=== PATIENT | female | born 1970 | race Caucasian/White ===

== ENCOUNTER → 2016-09-13 | Outpatient (CLI) | payer OTHER ==
--- NOTE | 2016-09-14 10:26 | MR ---
EXAMINATION TYPE: MR cervical spine wo con DATE OF EXAM: 09/13/2016 COMPARISON: Prior exam 04/12/2015 HISTORY: Neck pain, headaches, BUE weakness, no trauma/surgery TECHNIQUE: Multiplanar, multisequence images of the cervical spine were acquired. The exam is similar to prior exam. Mild underlying spinal curvature is noted. C2-C3: No evidence for degenerative disc disease. No disc bulge/herniation or protrusion. No Canal stenosis. Foramina are patent bilaterally. C3-C4: No evidence for degenerative disc disease. No disc bulge/herniation or protrusion. No Canal stenosis. Foramina are patent bilaterally. C4-C5: Mild posterior broad-based disc bulge causes only slight anterior mass effect on the thecal sa c. C5-C6: Mild posterior broad-based disc bulge causes only mild anterior mass effect on the thecal sac. C6-C7: No evidence for degenerative disc disease. No disc bulge/herniation or protrusion. No Canal stenosis. Foramina are patent bilaterally. C7-T1: No evidence for degenerative disc disease. No disc bulge/herniation or protrusion. No Canal stenosis. Foramina are patent bilaterally. Cervical segments are intact. There is normal alignment. Cervical spinal cord is of normal signal. Craniovertebral junction relationships are within normal limits. IMPRESSION: Stable exam. On mild degenerative changes as described. There is a mild underlying spinal curvature.
== END | disposition home or self-care (01) ==
LOC: RADMRIMAIN 20:13
PROVIDERS: ATTEND Neurological Surgery
DX: M47.22 Other spondylosis with radiculopathy, cervical region (principal); M43.9 Deforming dorsopathy, unspecified
CPT/HCPCS: 72141

== ENCOUNTER 2017-06-23 13:18 | Emergency (ER) | payer OTHER ==
[2017-06-23 13:33] VITALS: BP 145/89; PULSE 111; RESP 18; TEMP 98
[2017-06-23] MEDS ORDERED: CYCLOBENZAPRINE 10MG STARTER 3 TAB BTL PO STA (13:56)
--- NOTE | 2017-06-23 14:08 | ED ---
Fall HPI - General Chief Complaint: Fall Stated Complaint: Back,Arm injury,Fall Time Seen by Provider: 06/23/17 13:35 Source: patient, RN notes reviewed, old records reviewed Mode of arrival: ambulatory - History of Present Illness Initial Comments: This patient is a 47-year-old female present the emergency department today chief complaint of right hand pain and lower back pain. She reports that 3 days ago she fell after she stepped on occur. She reports that she landed on her bottom and fell on an outstretched hand. She reports that she has no significant bruising or swelling. She reports pain with range of motion of her thumb. She states she has no numbness or tingling paresthesias. Patient states that the pain is worse with movement of her lower back. Denies any saddle anesthesias. - Related Data Home Medications Medication Instructions Recorded Confirmed Calcium Polycarbophil [Fibercon] 625 mg PO DAILY 09/06/14 12/22/16 Cetirizine HCl [Zyrtec] 10 mg PO HS 09/06/14 12/22/16 Hydrocodone/Acetaminophen [Jackson 1 tab PO BID PRN 09/06/14 12/22/16 7.5-325] Levothyroxine Sodium [Synthroid] 50 mcg PO DAILY 09/06/14 12/22/16 Lisinopril [Zestril] 10 mg PO DAILY 09/06/14 12/22/16 Montelukast [Singulair] 10 mg PO DAILY 09/06/14 12/22/16 Multivitamins, Thera [Multivitamin 1 tab PO DAILY 09/06/14 12/22/16 (formulary)] Ranitidine HCl 150 mg PO BID 09/06/14 12/22/16 Sertraline [Zoloft] 50 mg PO BID 09/06/14 12/22/16 glipiZIDE [Glucotrol] 5 mg PO AC-BRKFST 11/17/14 12/22/16 Inhalers Unknown Med & Dose 1 dose INHALATION DIRECTED PRN 11/29/14 12/22/16 Stool Softner 1 tab PO DIRECTED PRN 11/29/14 12/22/16 Vegetable Laxative 1 dose PO DIRECTED PRN 11/29/14 12/22/16 Previous Rx's Medication Instructions Recorded HYDROcodone/APAP 7.5-325MG [Jackson 1 each PO Q4H PRN #60 tab 12/02/14 7.5] Cyclobenzaprine [Flexeril] 10 mg PO TID #12 tab 06/23/17 traMADol HCl [Ultram] 50 mg PO Q6HR PRN #12 tab 06/23/17 Allergies Allergy/AdvReac Type Severity Reaction Status Date / Time No Known Allergies Allergy Verified 12/21/16 23:49 Review of Systems ROS Statement: Those systems with pertinent positive or pertinent negative responses have been documented in the HPI. ROS Other: All systems not noted in ROS Statement are negative. Past Medical History Past Medical History: Asthma, Chest Pain / Angina, Diabetes Mellitus, GERD/ Reflux, Hypertension, Thyroid Disorder Additional Past Medical History / Comment(s): VARICOSE VEINS , HIATAL HERNIA History of Any Multi-Drug Resistant Organisms: None Reported Past Surgical History: No Surgical Hx Reported Additional Past Surgical History / Comment(s): EGD 11/18/14 Past Anesthesia/Blood Transfusion Reactions: No Reported Reaction Additional Past Anesthesia/Blood Transfusion Reaction / Comment(s): Pt has never had surgery. Past Psychological History: Depression Smoking Status: Never smoker Past Alcohol Use History: None Reported Past Drug Use History: None Reported - Past Family History Father Family Medical History: Myocardial Infarction ([place]) Additional Family Medical History / Comment(s): Father of "massive" [place] in his early 60's. Mother Family Medical History: No Reported History Additional Family Medical History / Comment(s): Mother is still living. General Exam - General Exam Comments Initial Comments: This is a 47-year-old female. No acute distress. Limitations: no limitations General appearance: alert, in no apparent distress Head exam: Present: atraumatic, normocephalic, normal inspection Eye exam: Present: normal appearance, PERRL, EOMI. Absent: scleral icterus, conjunctival injection, periorbital swelling ENT exam: Present: normal exam Neck exam: Present: normal inspection. Absent: tenderness, meningismus, lymphadenopathy Respiratory exam: Present: normal lung sounds bilaterally. Absent: respiratory distress, wheezes, rales, rhonchi, stridor Cardiovascular Exam: Present: regular rate, normal rhythm, normal heart sounds. Absent: systolic murmur, diastolic murmur, rubs, gallop, clicks GI/Abdominal exam: Present: soft, normal bowel sounds. Absent: distended, tenderness, guarding, rebound, rigid Extremities exam: Present: normal inspection, full ROM, normal capillary refill , other (tenderness over right thumb and snufbox. No bruising or swelling. Full ROM or wrist and hand. ). Absent: tenderness, pedal edema, joint swelling, calf tenderness Back exam: Present: normal inspection, tenderness (Tenderness of her lumbar spine.) Neurological exam: Present: alert Psychiatric exam: Present: normal affect, normal mood Skin exam: Present: warm, dry, intact, normal color. Absent: rash Course Vital Signs 06/23/17 13:29 Temperature 98.0 F Pulse Rate 111 H Respiratory 18 Rate Blood Pressure 145/89 O2 Sat by Pulse 99 Oximetry Procedures - Orthopedic Splinting/Casting Injury #1 Side: right Upper Extremity Injury Location: wrist Upper Extremity Immobilizer: thumb spica, Keaton wrap, synthetic pre-padded splint Medical Decision Making - Medical Decision Making This is a 47 year old with right thumb pain and back pain after a fall a few days ago off a curb. She has some tenderness to snuffbox, placed in thumb spica splint and advised to follow up with ortho. She also complains of lower jback pain, mild renderness over paraspinal muscles. Given Flexeril starter pack. All questions answered and return parameters discussed. Xrays of back and hand are normal. - Radiology Data Radiology results: report reviewed Xray of hand and back show no acute changes. Disposition Clinical Impression: Sprain of right thumb, Fall, Lumbar back sprain Disposition: HOME SELF-CARE Condition: Good Instructions: Skier's Thumb (ED), Low Back Strain (ED) Additional Instructions: Patient advised to follow-up with primary care provider. Take the medications as prescribed. Wear the splint for the next few days. Return to emergency department if any alarming signs or symptoms occur. Prescriptions: Cyclobenzaprine [Flexeril] 10 mg PO TID #12 tab traMADol HCl [Ultram] 50 mg PO Q6HR PRN #12 tab PRN Reason: Pain Referrals: Nestor French MD [Primary Care Provider] - 1-2 days Mendez Fagan PAC [PHYSICIAN [facility]] - 1-2 days Time of Disposition: 14:36
--- NOTE | 2017-06-23 14:14 | XR ---
EXAM TYPE: LUMBAR SPINE X RAY SERIES COMPARISON: NONE HISTORY: Pain TECHNIQUE: 3 views are submitted. FINDINGS: Alignment is anatomic. The pedicles are intact. The transverse processes are intact. There is no s pondylolysis or spondylolisthesis. Mild hypertrophic change of the spine. Degenerative disc disease at the thoracolumbar junction. IMPRESSION: 1. No acute process.
--- NOTE | 2017-06-23 14:15 | XR ---
EXAMINATION TYPE: XR hand complete RT DATE OF EXAM: 06/23/2017 COMPARISON: NONE HISTORY: Pain TECHNIQUE: Three views are submitted. FINDINGS: The osseous structures are intact. The joint spaces are preserved and there is no acute fracture or dislocation. IMPRESSION: 1. No definite acute fracture or dislocation if symptoms persist, follow-up study in 7 to 10 days wo uld be suggested
== END 2017-06-23 14:53 | disposition home or self-care (01) ==
LOC: EC 13:18
DX: S63.601A Unspecified sprain of right thumb, initial encounter (principal); S33.5XXA Sprain of ligaments of lumbar spine, initial encounter; J45.909 Unspecified asthma, uncomplicated; E11.9 Type 2 diabetes mellitus without complications; K21.9 Gastro-esophageal reflux disease without esophagitis; I10 Essential (primary) hypertension; E07.9 Disorder of thyroid, unspecified; F32.9 Major depressive disorder, single episode, unspecified; I20.9 Angina pectoris, unspecified; Z79.84 Long term (current) use of oral hypoglycemic drugs; Z79.899 Other long term (current) drug therapy; W01.198A Fall on same level from slipping, tripping and stumbling with subsequent striking against other object, initial encounter; Y92.009 Unspecified place in unspecified non-institutional (private) residence as the place of occurrence of the external cause
CPT/HCPCS: 29125; 72100; 99284

== ENCOUNTER 2018-01-05 11:00 | Day surgery (SDC) | payer OTHER ==
[2017-12-30 11:38] VITALS: BMI 42.0
[~2018-01-05 11:00] MED LIST: HYDROmorphone 0.5 MG/0.5 ML SYRINGE IVP PRN; LACTATED RINGERS 1,000 ML IV SCH; LIDOCAINE 1% 20 ML VIAL (10MG/ML) FOR IV START INTRADERMA PRN; ONDANSETRON 4 MG/2 ML VIAL IVP ONE; Pre Op ABX Message 1 EACH MISC MISCELLANE ONE
[2018-01-05 11:21] VITALS: RESP 16; TEMP 97.6
[2018-01-05 11:48] LABS: Glucose,Whole Blood 182 mg/dL (75-99)
[2018-01-05] MEDS ORDERED: ROPIVACAINE 5 MG/ML 30 ML VIAL MISCELLANE ONE ×3 (12:31→12:45)
[2018-01-05] MEDS ORDERED: LIDOCAINE 2% INJ 20 MG/ML SQ ONE ×3 (12:32→12:45)
[2018-01-05] MEDS ORDERED: KETAMINE 10 MG/ML 20 ML VIAL ONE (12:38)
[2018-01-05] MEDS ORDERED: PROPOFOL 10 MG/ML 20 ML VIAL IV ONE (12:38)
[2018-01-05] MEDS ORDERED: fentaNYL (PF) 50 MCG/ML 2 ML AMP ONE (12:38)
[2018-01-05] MEDS ORDERED: MIDAZOLAM 2 MG/2 ML VIAL ONE (12:38)
[2018-01-05 13:34] VITALS: BP 114/77; PULSE 86
--- NOTE | 2018-01-06 20:34 | OP ---
OPERATIVE REPORT PROCEDURE DATE: 01/05/2018 PREOPERATIVE DIAGNOSES: 1. Carpal tunnel syndrome, right wrist. 2. Right trigger thumb. FINAL DIAGNOSES: 1. Carpal tunnel syndrome, right wrist. 2. Right trigger thumb. PROCEDURE PERFORMED: 1. Right carpal tunnel release. 2. Right trigger thumb release. DESCRIPTION OF PROCEDURE: The patient was taken to the operative suite given intravenous sedation. I then performed a digital block of the thumb using combination Xylocaine and Marcaine both without Epinephrine. The hand was then prepped and draped in the usual manner. The hand was elevated, exsanguinated. The cuff was inflated 250 mmHg. Procedure #1: A transverse incision was made in the proximal skin crease of the thumb. Blunt dissection was taken through the subcutaneous tissue to identify the neurovascular bundles. They were kept in view and gently retracted out of harm's way while a longitudinal release of the A1 devon was performed. The flexor pollicis longus was examined and slight swelling was noted but the tendon was intact. The tendon was gently retracted from the wound to ensure no adhesion. The wound was then thoroughly irrigated, tourniquet released. Hemostasis was acquired and the skin was closed with 5-0 nylon suture. Soft bulky dressing applied. Procedure #2: I then performed a local injection along the line of the incision with a combination of Marcaine and Xylocaine both without epinephrine. The hand was then prepped and draped in the usual manner. The arm was elevated, exsanguinated and the cuff was inflated to 250 mm of mercury. A longitudinal incision was made along the ring finger ray distal to the wrist crease. Dissection was taken through the skin and subcutaneous tissue, initially sharp through the skin and then blunt through the subcutaneous tissue to ensure protection of any potential terminal transverse branches of the palmar cutaneous nerve. The palmar fascia was then incised under direct vision longitudinally exposing the transverse carpal ligament. The transverse carpal ligament also was incised under direct vision. The dissection was then continued proximally beneath the skin under direct vision to release the distal forearm fascia. The median nerve was then reflected free of tenosynovium to ensure no adhesions. The tourniquet was then released. The wound was then irrigated and the skin was closed with a running 5-0 nylon suture. A soft bulky dressing was applied including a volar plaster splint holding the wrist in a neutral slightly extended position. The patient was then taken to the Recovery Room in satisfactory condition. MMNIKI / MARYA: [id number] /
== END 2018-01-05 14:11 | disposition home or self-care (01) ==
LOC: OR 11:00
PROVIDERS: ATTEND Orthopaedic Surgery Hand Surgery
DX: G56.01 Carpal tunnel syndrome, right upper limb (principal); M65.311 Trigger thumb, right thumb; I10 Essential (primary) hypertension; E03.9 Hypothyroidism, unspecified; F32.9 Major depressive disorder, single episode, unspecified; J45.909 Unspecified asthma, uncomplicated; K21.9 Gastro-esophageal reflux disease without esophagitis; E11.9 Type 2 diabetes mellitus without complications; Z79.84 Long term (current) use of oral hypoglycemic drugs; Z79.890 Hormone replacement therapy; Z79.891 Long term (current) use of opiate analgesic; Z79.51 Long term (current) use of inhaled steroids; Z79.899 Other long term (current) drug therapy
CPT/HCPCS: 81025; 64721; 26055; J2001; J2250; J3010; J2795; J2704

== ENCOUNTER 2018-03-05 05:23 | Emergency (ER) | payer OTHER ==
--- NOTE | 2018-03-05 05:45 | ED ---
General Adult HPI - General Chief complaint: Upper Respiratory Infection Stated complaint: Body aches Time Seen by Provider: 03/05/18 05:37 Source: patient Mode of arrival: ambulatory Limitations: no limitations - History of Present Illness Initial comments: Patient is a 47-year-old female presents the emergency department today for evaluation of generalized malaise, subjective fevers and chills, body aches and URI-like symptoms. Patient reports she's been experiencing these symptoms for approximately 2 weeks duration. She reports that symptoms coming go without provocation. She reports that she feels fatigued in her body is hurting. She describes it as her arms and legs feeling achy. She reports subjective fevers but has not checked her temperature at home. She reports nasal congestion and a nonproductive cough for 2 weeks duration. She's tried [id number] medications including Tylenol, Motrin and aspirin with no improvement in any of her symptoms. She reports that her symptoms wax and wane she cannot identify any exacerbating or relieving factors. She reports that today she was just feeling so run down she decided to come to the ER for further evaluation. - Related Data Home Medications Medication Instructions Recorded Confirmed Calcium Polycarbophil [Fibercon] 625 mg PO DAILY 09/06/14 12/30/17 Cetirizine HCl [Zyrtec] 10 mg PO HS 09/06/14 12/30/17 Levothyroxine Sodium [Synthroid] 50 mcg PO DAILY 09/06/14 12/30/17 Lisinopril [Zestril] 10 mg PO DAILY 09/06/14 12/30/17 Montelukast [Singulair] 10 mg PO DAILY 09/06/14 01/05/18 Multivitamins, Thera [Multivitamin 1 tab PO DAILY 09/06/14 12/30/17 (formulary)] Ranitidine HCl 150 mg PO BID 09/06/14 12/30/17 glipiZIDE [Glucotrol] 5 mg PO AC-BRKFST 11/17/14 01/05/18 Stool Softner 1 tab PO DIRECTED PRN 11/29/14 12/30/17 Vegetable Laxative 1 dose PO DIRECTED PRN 11/29/14 12/30/17 Budesonide/Formoterol Fumarate 2 puff INHALATION BID 12/30/17 01/05/18 [Symbicort 160-4.5 Mcg Inhaler] Gabapentin [Neurontin] 600 mg PO HS 12/30/17 01/05/18 Naproxen [Naprosyn] 500 mg PO Q12HR 12/30/17 01/05/18 ARIPiprazole [Abilify] 2 mg PO HS PRN 03/05/18 03/05/18 Sertraline [Zoloft] 100 mg PO DAILY 03/05/18 03/05/18 Previous Rx's Medication Instructions Recorded traMADol HCl [Ultram] 50 mg PO Q6HR PRN #12 tab 06/23/17 Allergies Allergy/AdvReac Type Severity Reaction Status Date / Time No Known Allergies Allergy Verified 03/05/18 07:16 Review of Systems ROS Statement: Those systems with pertinent positive or pertinent negative responses have been documented in the HPI. ROS Other: All systems not noted in ROS Statement are negative. Past Medical History Past Medical History: Asthma, Chest Pain / Angina, Diabetes Mellitus, GERD/ Reflux, Hypertension, Thyroid Disorder Additional Past Medical History / Comment(s): VARICOSE VEINS , HIATAL HERNIA History of Any Multi-Drug Resistant Organisms: None Reported Past Surgical History: Hernia Repair Additional Past Surgical History / Comment(s): EGD 11/18/14 Past Anesthesia/Blood Transfusion Reactions: No Reported Reaction Additional Past Anesthesia/Blood Transfusion Reaction / Comment(s): Pt has never had surgery. Past Psychological History: Depression Smoking Status: Never smoker Past Alcohol Use History: None Reported Past Drug Use History: None Reported - Past Family History Father Family Medical History: Myocardial Infarction ([place]) Additional Family Medical History / Comment(s): Father of "massive" [place] in his early 60's. Mother Family Medical History: No Reported History Additional Family Medical History / Comment(s): Mother is still living. General Exam - General Exam Comments Initial Comments: Physical Exam GENERAL: Chronically ill-appearing, appears older than stated age HENT: Normocephalic, Atraumatic. EYES: PERRL, EOMI PULMONARY: Unlabored respirations. No audible rales rhonchi or wheezing was noted. CARDIOVASCULAR: There is a regular rhythm without any murmurs gallops or rubs. Tachycardia ABDOMEN: Soft and nontender with normal bowel sounds. SKIN: Skin is clear with no lesions or rashes and otherwise unremarkable. : Deferred NEUROLOGIC: Patient is alert and oriented x3. Moving all extremities spontaneously MUSCULOSKELETAL: Normal extremities with adequate strength and full range of motion. No lower extremity swelling or edema. No calf tenderness. PSYCHIATRIC: Normal psychiatric evaluation. Limitations: no limitations Limitations: no limitations Course Vital Signs 03/05/18 03/05/18 03/05/18 05:29 05:59 06:29 Temperature 97.8 F Pulse Rate 106 H 86 95 Respiratory 17 16 16 Rate Blood Pressure 177/103 131/74 126/76 O2 Sat by Pulse 98 97 97 Oximetry EKG Findings - EKG Comments: EKG Findings:: EKG obtained at 6:31 AM, rate is 94, rhythm is sinus, normal axis , normal intervals Medical Decision Making - Lab Data Result diagrams: 03/05/18 06:20 03/05/18 06:20 Lab Results 03/05/18 03/05/18 03/05/18 Range/Units 06:14 06:20 06:20 WBC 5.8 (3.8-10.6) k/uL RBC 4.48 (3.80-5.40) m/uL Hgb 13.0 (11.4-16.0) gm/dL Hct 41.0 (34.0-46.0) % MCV 91.5 (80.0-100.0) fL MCH 29.1 (25.0-35.0) pg MCHC 31.8 (31.0-37.0) g/dL RDW 14.5 (11.5-15.5) % Plt Count 346 (150-450) k/uL Neutrophils % 64 % Lymphocytes % 23 % Monocytes % 5 % Eosinophils % 6 % Basophils % 1 % Neutrophils # 3.7 (1.3-7.7) k/uL Lymphocytes # 1.4 (1.0-4.8) k/uL Monocytes # 0.3 (0-1.0) k/uL Eosinophils # 0.3 (0-0.7) k/uL Basophils # 0.1 (0-0.2) k/uL PT (9.0-12.0) sec INR (<1.2) APTT (22.0-30.0) sec D-Dimer (<0.60) mg/L FEU Sodium 138 (137-145) mmol/L Potassium 4.6 (3.5-5.1) mmol/L Chloride 106 (98-107) mmol/L Carbon Dioxide 23 (22-30) mmol/L Anion Gap 9 mmol/L BUN 14 (7-17) mg/dL Creatinine 0.58 (0.52-1.04) mg/dL Est GFR (CKD-EPI)AfAm >90 (>60 ml/min/1.73 sqM) Est GFR (CKD-EPI)NonAf >90 (>60 ml/min/1.73 sqM) Glucose 237 H (74-99) mg/dL Calcium 8.8 (8.4-10.2) mg/dL Magnesium 1.6 (1.6-2.3) mg/dL Creatine Kinase 54 (30-135) U/L Influenza Type A RNA Not Detected (Not Detectd) Influenza Type B (PCR) Not Detected (Not Detectd) 03/05/18 Range/Units 06:20 WBC (3.8-10.6) k/uL RBC (3.80-5.40) m/uL Hgb (11.4-16.0) gm/dL Hct (34.0-46.0) % MCV (80.0-100.0) fL MCH (25.0-35.0) pg MCHC (31.0-37.0) g/dL RDW (11.5-15.5) % Plt Count (150-450) k/uL Neutrophils % % Lymphocytes % % Monocytes % % Eosinophils % % Basophils % % Neutrophils # (1.3-7.7) k/uL Lymphocytes # (1.0-4.8) k/uL Monocytes # (0-1.0) k/uL Eosinophils # (0-0.7) k/uL Basophils # (0-0.2) k/uL PT 10.0 (9.0-12.0) sec INR 0.9 (<1.2) APTT 23.7 (22.0-30.0) sec D-Dimer 0.27 (<0.60) mg/L FEU Sodium (137-145) mmol/L Potassium (3.5-5.1) mmol/L Chloride (98-107) mmol/L Carbon Dioxide (22-30) mmol/L Anion Gap mmol/L BUN (7-17) mg/dL Creatinine (0.52-1.04) mg/dL Est GFR (CKD-EPI)AfAm (>60 ml/min/1.73 sqM) Est GFR (CKD-EPI)NonAf (>60 ml/min/1.73 sqM) Glucose (74-99) mg/dL Calcium (8.4-10.2) mg/dL Magnesium (1.6-2.3) mg/dL Creatine Kinase (30-135) U/L Influenza Type A RNA (Not Detectd) Influenza Type B (PCR) (Not Detectd) Disposition Clinical Impression: Viral infection, Myalgia Disposition: HOME SELF-CARE Instructions: Upper Respiratory Infection (ED) Is patient prescribed a controlled substance at d/c from ED?: No Referrals: Nestor French MD [Primary Care Provider] - 1-2 days Time of Disposition: 08:00
[2018-03-05] MEDS ORDERED: SODIUM CHLORIDE 0.9% 1,000 ML IV STA (05:53)
[2018-03-05 06:30] VITALS: BP 126/76
[2018-03-05 06:40] LABS: Basophils # (A) 0.1 k/uL (0-0.2); Basophils % (A) 1 %; Eosinophils # (A) 0.3 k/uL (0-0.7); Eosinophils % (A) 6 %; Lymphocytes # (A) 1.4 k/uL (1.0-4.8); Lymphocytes % (A) 23 %; MCH 29.1 pg (25.0-35.0); MCHC 31.8 g/dL (31.0-37.0); MCV 91.5 fL (80.0-100.0); Mean Platelet Volume 7.1; Monocytes # (A) 0.3 k/uL (0-1.0); Monocytes % (A) 5 %; Neutrophils # (A) 3.7 k/uL (1.3-7.7); Neutrophils % (A) 64 %; Platelet Count 346 k/uL (150-450); RBC 4.48 m/uL (3.80-5.40); RDW 14.5 % (11.5-15.5); WBC 5.8 k/uL (3.8-10.6)
[2018-03-05 06:51] LABS: Anion Gap 9 mmol/L; Blood Urea Nitrogen 14 mg/dL (7-17); Calcium 8.8 mg/dL (8.4-10.2); Carbon Dioxide 23 mmol/L (22-30); Chloride 106 mmol/L (98-107); Creatine Kinase 54 U/L (30-135); Glucose 237 mg/dL (74-99); Magnesium 1.6 mg/dL (1.6-2.3); Potassium 4.6 mmol/L (3.5-5.1); Sodium 138 mmol/L (137-145)
[2018-03-05 06:53] LABS: D-Dimer 0.27 mg/L FEU (<0.60); INR 0.9 (<1.2); Partial Thromboplastin Time 23.7 sec (22.0-30.0)
[2018-03-05] MEDS ORDERED: KETOROLAC 30 MG/ML 1 ML VIAL IVP ONE (07:02)
[2018-03-05] MEDS ORDERED: Magnesium Replacement Protocol 1 EACH MISC MISCELLANE PRN (07:02)
--- NOTE | 2018-03-05 07:13 | XR ---
EXAMINATION TYPE: XR chest 2V DATE OF EXAM: 03/05/2018 COMPARISON: Chest x-ray September 06, 2014. HISTORY: Upper respiratory infection per order. Chest pain per patient. TECHNIQUE: Frontal and lateral views of the chest are obtained. FINDINGS: Overlying EKG leads are seen currently. There is no focal air space opacity, pleural effusi on, or pneumothorax seen. The cardiac silhouette size remains within normal limits. The osseous st ructures are intact. Cholecystectomy clips are now present. IMPRESSION: No acute cardiopulmonary process on current study.
[2018-03-05] MEDS: MAGNESIUM SULFATE-D5W PMX 1 GM in DEXTROSE/WATER 1 100ML.BAG IVPB SCH ×2 (07:16→08:19)
[2018-03-05 07:22] LABS: Appearance,Urine Clear (Clear); Bilirubin,Urine Negative (Negative); Blood,Urine Negative (Negative); Color,Urine Yellow; Glucose,Urine (UA) Negative (Negative); Ketones,Urine Negative (Negative); Leukocyte Esterase,Urine Negative (Negative); Nitrite,Urine Negative (Negative); Protein,Urine Negative (Negative); Specific Gravity,Urine 1.022 (1.001-1.035); Urobilinogen,Urine <2.0 mg/dL (<2.0)
[2018-03-05 08:21] VITALS: PULSE 90; RESP 18
[2018-03-05 08:29] VITALS: TEMP 98.2
== END 2018-03-05 08:29 | disposition home or self-care (01) ==
LOC: EC 05:23
DX: B34.9 Viral infection, unspecified (principal); M79.10 Myalgia, unspecified site; J45.909 Unspecified asthma, uncomplicated; E11.9 Type 2 diabetes mellitus without complications; K21.9 Gastro-esophageal reflux disease without esophagitis; I10 Essential (primary) hypertension; E07.9 Disorder of thyroid, unspecified; F32.9 Major depressive disorder, single episode, unspecified; Z79.84 Long term (current) use of oral hypoglycemic drugs; Z79.51 Long term (current) use of inhaled steroids; Z79.1 Long term (current) use of non-steroidal anti-inflammatories (NSAID); Z79.899 Other long term (current) drug therapy
CPT/HCPCS: 36415; 93005; 85379; 80048; 82550; 83735; 84484; 85025; 85610; 85730; 81003; 87502; 71046; 99284; 96365; 96375; 96361; J1885; J3475

== ENCOUNTER 2019-05-05 11:00 | Observation (INO) | payer OTHER ==
[2019-05-05 11:52] LABS: Basophils # (A) 0.1 k/uL (0-0.2); Basophils % (A) 1 %; Eosinophils # (A) 0.2 k/uL (0-0.7); Eosinophils % (A) 3 %; HCT 40.9 % (34.0-46.0); HGB 13.6 gm/dL (11.4-16.0); Lymphocytes # (A) 1.5 k/uL (1.0-4.8); Lymphocytes % (A) 25 %; MCH 30.4 pg (25.0-35.0); MCHC 33.2 g/dL (31.0-37.0); MCV 91.5 fL (80.0-100.0); Monocytes # (A) 0.3 k/uL (0-1.0); Monocytes % (A) 4 %; Neutrophils # (A) 3.8 k/uL (1.3-7.7); Neutrophils % (A) 64 %; Platelet Count 338 k/uL (150-450); Poikilocytosis Slight; RBC 4.46 m/uL (3.80-5.40); RDW 14.1 % (11.5-15.5); WBC 5.9 k/uL (3.8-10.6)
[2019-05-05 12:00] LABS: ALT 23 U/L (4-34); AST 29 U/L (14-36); African American GFR (CKD) >90 (>60 ml/min/1.73 sqM); Albumin 4.4 g/dL (3.5-5.0); Alkaline Phosphatase 62 U/L (38-126); Anion Gap 7 mmol/L; Blood Urea Nitrogen 15 mg/dL (7-17); Calcium 9.4 mg/dL (8.4-10.2); Carbon Dioxide 23 mmol/L (22-30); Chloride 105 mmol/L (98-107); Glucose 179 mg/dL (74-99); Non-African American GFR(CKD) >90 (>60 ml/min/1.73 sqM); Potassium 4.6 mmol/L (3.5-5.1); Sodium 135 mmol/L (137-145); Total Bilirubin 0.5 mg/dL (0.2-1.3); Total Protein 7.5 g/dL (6.3-8.2)
[2019-05-05 12:03] LABS: INR 0.9 (<1.2); Partial Thromboplastin Time 23.1 sec (22.0-30.0); Prothrombin Time 9.7 sec (9.0-12.0)
[2019-05-05] MEDS ORDERED: NITROGLYCERIN SL TABS 0.4 MG TAB SUBLINGUAL STA (12:16)
[2019-05-05] MEDS ORDERED: ASPIRIN 81 MG PO STA (12:16)
--- NOTE | 2019-05-05 12:37 | ED ---
General Adult HPI - General Chief complaint: Chest Pain Stated complaint: chest pain Time Seen by Provider: 05/05/19 11:39 Source: patient, RN notes reviewed Mode of arrival: ambulatory Limitations: no limitations - History of Present Illness Initial comments: Patient is a pleasant 49-year-old female presenting to the emergency department with chest and back discomfort. Symptoms have been present for a couple of weeks, somewhat worse today. Discomfort is sharp. Discomfort is mid chest and upper back. Patient states there may be some mild radiation. Patient has been sweaty. No nausea. There may be some mild associated shortness of breath. No history of similar symptoms previous. No leg pain or leg swelling. - Related Data Home Medications Medication Instructions Recorded Confirmed Calcium Polycarbophil [Fibercon] 625 mg PO DAILY 09/06/14 03/05/18 Cetirizine HCl [Zyrtec] 10 mg PO HS 09/06/14 03/05/18 Levothyroxine Sodium [Synthroid] 50 mcg PO DAILY 09/06/14 03/05/18 Lisinopril [Zestril] 10 mg PO DAILY 09/06/14 03/05/18 Montelukast [Singulair] 10 mg PO DAILY 09/06/14 03/05/18 Multivitamins, Thera [Multivitamin 1 tab PO DAILY 09/06/14 03/05/18 (formulary)] Ranitidine HCl 150 mg PO BID 09/06/14 03/05/18 glipiZIDE [Glucotrol] 5 mg PO BID 11/17/14 03/05/18 Stool Softner 1 tab PO DIRECTED PRN 11/29/14 03/05/18 Vegetable Laxative 1 dose PO DIRECTED PRN 11/29/14 03/05/18 Budesonide/Formoterol Fumarate 2 puff INHALATION RT-BID 12/30/17 03/05/18 [Symbicort 160-4.5 Mcg Inhaler] Gabapentin [Neurontin] 600 mg PO TID 12/30/17 03/05/18 Naproxen [Naprosyn] 500 mg PO Q12HR 12/30/17 03/05/18 ARIPiprazole [Abilify] 2 mg PO HS PRN 03/05/18 03/05/18 Sertraline [Zoloft] 100 mg PO DAILY 03/05/18 03/05/18 Previous Rx's Medication Instructions Recorded traMADol HCl [Ultram] 50 mg PO Q6HR PRN #12 tab 06/23/17 Allergies Allergy/AdvReac Type Severity Reaction Status Date / Time No Known Allergies Allergy Verified 05/05/19 11:12 Review of Systems ROS Statement: Those systems with pertinent positive or pertinent negative responses have been documented in the HPI. ROS Other: All systems not noted in ROS Statement are negative. Constitutional: Denies: fever Eyes: Denies: eye pain ENT: Denies: as per HPI Respiratory: Denies: cough Cardiovascular: Reports: chest pain Endocrine: Denies: fatigue Gastrointestinal: Denies: abdominal pain Genitourinary: Denies: dysuria Musculoskeletal: Reports: back pain Skin: Denies: rash Neurological: Denies: weakness Past Medical History Past Medical History: Asthma, Chest Pain / Angina, Diabetes Mellitus, GERD/Reflux, Hypertension, Thyroid Disorder Additional Past Medical History / Comment(s): VARICOSE VEINS , HIATAL HERNIA History of Any Multi-Drug Resistant Organisms: None Reported Past Surgical History: Hernia Repair Additional Past Surgical History / Comment(s): EGD 11/18/14 Past Anesthesia/Blood Transfusion Reactions: No Reported Reaction Additional Past Anesthesia/Blood Transfusion Reaction / Comment(s): Pt has never had surgery. Past Psychological History: Depression Smoking Status: Never smoker Past Alcohol Use History: None Reported Past Drug Use History: None Reported - Past Family History Father Family Medical History: Myocardial Infarction ([place]) Additional Family Medical History / Comment(s): Father of "massive" [place] in his early 60's. Mother Family Medical History: No Reported History Additional Family Medical History / Comment(s): Mother is still living. General Exam Limitations: no limitations General appearance: alert, in no apparent distress Head exam: Present: normocephalic Eye exam: Present: normal appearance, PERRL ENT exam: Present: normal oropharynx Neck exam: Present: normal inspection Respiratory exam: Present: normal lung sounds bilaterally, chest wall tenderness Cardiovascular Exam: Present: regular rate, normal rhythm Expanded Peripheral pulses: 2+: Radial (R), Radial (L), Dorsalis Pedis (R), Dorsalis Pedis (L) GI/Abdominal exam: Present: soft. Absent: distended, tenderness Extremities exam: Present: normal inspection. Absent: pedal edema, calf tenderness Back exam: Present: tenderness (Tenderness bilateral thoracic region approximately T3 through T6) Neurological exam: Present: alert. Absent: motor sensory deficit Psychiatric exam: Present: normal affect, normal mood Skin exam: Present: normal color Course Vital Signs 05/05/19 05/05/19 05/05/19 11:11 12:27 14:41 Temperature 98.3 F Pulse Rate 89 86 86 Respiratory 18 16 16 Rate Blood Pressure 129/75 O2 Sat by Pulse 97 99 Oximetry 05/05/19 14:47 Temperature Pulse Rate Respiratory Rate Blood Pressure 123/77 O2 Sat by Pulse Oximetry EKG Findings - EKG Comments: EKG Findings:: Normal sinus rhythm 79. VA 160. QRS 94. QT 380. QTC 435. Normal axis. Normal QRS. No acute ST change. Medical Decision Making - Medical Decision Making Patient reevaluated and states she had some transient improvement with nitroglycerin. Patient updated on results and plan. Case was discussed in detail with Dr. French, who will admit his patient. - Lab Data Result diagrams: 05/05/19 11:24 05/05/19 11:24 Lab Results 05/05/19 05/05/19 05/05/19 Range/Units 11:24 11:24 11:24 WBC 5.9 (3.8-10.6) k/uL RBC 4.46 (3.80-5.40) m/uL Hgb 13.6 (11.4-16.0) gm/dL Hct 40.9 (34.0-46.0) % MCV 91.5 (80.0-100.0) fL MCH 30.4 (25.0-35.0) pg MCHC 33.2 (31.0-37.0) g/dL RDW 14.1 (11.5-15.5) % Plt Count 338 (150-450) k/uL Neutrophils % 64 % Lymphocytes % 25 % Monocytes % 4 % Eosinophils % 3 % Basophils % 1 % Neutrophils # 3.8 (1.3-7.7) k/uL Lymphocytes # 1.5 (1.0-4.8) k/uL Monocytes # 0.3 (0-1.0) k/uL Eosinophils # 0.2 (0-0.7) k/uL Basophils # 0.1 (0-0.2) k/uL Poikilocytosis Slight PT 9.7 (9.0-12.0) sec INR 0.9 (<1.2) APTT 23.1 (22.0-30.0) sec Sodium 135 L (137-145) mmol/L Potassium 4.6 (3.5-5.1) mmol/L Chloride 105 (98-107) mmol/L Carbon Dioxide 23 (22-30) mmol/L Anion Gap 7 mmol/L BUN 15 (7-17) mg/dL Creatinine 0.61 (0.52-1.04) mg/dL Est GFR (CKD-EPI)AfAm >90 (>60 ml/min/1.73 sqM) Est GFR (CKD-EPI)NonAf >90 (>60 ml/min/1.73 sqM) Glucose 179 H (74-99) mg/dL Calcium 9.4 (8.4-10.2) mg/dL Total Bilirubin 0.5 (0.2-1.3) mg/dL AST 29 (14-36) U/L ALT 23 (4-34) U/L Alkaline Phosphatase 62 (38-126) U/L Troponin I (0.000-0.034) ng/mL Total Protein 7.5 (6.3-8.2) g/dL Albumin 4.4 (3.5-5.0) g/dL 05/05/19 Range/Units 11:24 WBC (3.8-10.6) k/uL RBC (3.80-5.40) m/uL Hgb (11.4-16.0) gm/dL Hct (34.0-46.0) % MCV (80.0-100.0) fL MCH (25.0-35.0) pg MCHC (31.0-37.0) g/dL RDW (11.5-15.5) % Plt Count (150-450) k/uL Neutrophils % % Lymphocytes % % Monocytes % % Eosinophils % % Basophils % % Neutrophils # (1.3-7.7) k/uL Lymphocytes # (1.0-4.8) k/uL Monocytes # (0-1.0) k/uL Eosinophils # (0-0.7) k/uL Basophils # (0-0.2) k/uL Poikilocytosis PT (9.0-12.0) sec INR (<1.2) APTT (22.0-30.0) sec Sodium (137-145) mmol/L Potassium (3.5-5.1) mmol/L Chloride (98-107) mmol/L Carbon Dioxide (22-30) mmol/L Anion Gap mmol/L BUN (7-17) mg/dL Creatinine (0.52-1.04) mg/dL Est GFR (CKD-EPI)AfAm (>60 ml/min/1.73 sqM) Est GFR (CKD-EPI)NonAf (>60 ml/min/1.73 sqM) Glucose (74-99) mg/dL Calcium (8.4-10.2) mg/dL Total Bilirubin (0.2-1.3) mg/dL AST (14-36) U/L ALT (4-34) U/L Alkaline Phosphatase (38-126) U/L Troponin I <0.012 (0.000-0.034) ng/mL Total Protein (6.3-8.2) g/dL Albumin (3.5-5.0) g/dL - Radiology Data Radiology results: report reviewed (Computed tomography scan of the chest shows no aortic aneurysm or dissection. No pulmonary embolism. Hepatomegaly.) Disposition Clinical Impression: Chest pain Disposition: ADMITTED IP TO THIS HOSP Is patient prescribed a controlled substance at d/c from ED?: No Referrals: Nestor French MD [Primary Care Provider] - 1-2 days Decision Time: 15:00
--- NOTE | 2019-05-05 13:29 | CT ---
EXAMINATION TYPE: CT angio chest DATE OF EXAM: 05/05/2019 COMPARISON: Chest x-ray 03/05/2018 HISTORY: Chest and back pain CT DLP: 1305.2 mGycm Automated exposure control for dose reduction was used. CONTRAST: CTA scan of the thorax is performed without and with IV Contrast, patient injected with 100 ml mL of Isovue 370, pulmonary embolism protocol. MIP images are created and reviewed. 3D reconstructed imag es are created on an independent workstation and reviewed. FINDINGS: LUNGS: The lungs are grossly clear, there is no concerning parenchymal mass or nodule identified. T here is no pleural effusion or pneumothorax seen. The tracheobronchial tree is patent. AORTA: No evident aneurysm or dissection. 3 super aortic branch vessels are present. MEDIASTINUM: There is satisfactory enhancement of the pulmonary artery and its branches, there is no CT evidence for pulmonary embolism. There are no greater than 1 cm hilar or mediastinal lymph nodes. No pericardial effusion is seen. OTHER: Retroaortic left renal vein is present. Postop changes are noted at the gastroesophageal junc tion. Is a slight spinal curvature of the thoracic spine. The liver is enlarged and shows low-attenua tion. IMPRESSION: NORMAL AORTA. HEPATOMEGALY, CORRELATE FOR HEPATIC STEATOSIS. POSTOP CHANGES. SPINAL CURVATURE COULD B E POSITIONAL. ADDITIONAL FINDINGS ABOVE.
[2019-05-05] MEDS ORDERED: MORPHINE SULFATE 4 MG/ML SYRINGE IVP STA (14:47)
[2019-05-05] MEDS ORDERED: NITROGLYCERIN SL TABS 0.4 MG TAB SUBLINGUAL PRN (15:00)
[2019-05-05 16:48] LABS: Glucose,Whole Blood 130 mg/dL (75-99)
[2019-05-05] MEDS: methylPREDNISolone SOD SUCCI 40 MG/ML 1 ML VIAL IV SCH (18:45)
[2019-05-05] MEDS: glipiZIDE 5 MG TAB PO SCH (18:45)
[2019-05-05] MEDS: SYMBICORT 160-4.5 MCG INHALER INHALATION SCH (20:07)
[2019-05-05] MEDS ORDERED: diphenhydrAMINE 25 MG CAP PO PRN (20:09)
[2019-05-05 20:21] LABS: Glucose,Whole Blood 227 mg/dL (75-99)
[2019-05-05] MEDS: SERTRALINE 100 MG TAB PO SCH (20:46)
[2019-05-05] MEDS: NITROGLYCERIN OINT 1 INCH/GM PACKET TOPICAL SCH (20:46)
[2019-05-05] MEDS: INSULIN ASPART (NovoLOG) 100 UNIT/ML VIAL SQ SCH (20:47)
[2019-05-05] MEDS: traMADol 50 MG TAB PO SCH (20:47)
[2019-05-05] MEDS ORDERED: GABAPENTIN 300 MG CAP PO SCH (21:00)
[2019-05-05] MEDS ORDERED: LORATADINE 10 MG TAB PO SCH (21:00)
[2019-05-05 23:45] VITALS: RESP 18
[2019-05-06] MEDS: methylPREDNISolone SOD SUCCI 40 MG/ML 1 ML VIAL IV SCH ×3 (00:14→17:25)
[2019-05-06] MEDS: NITROGLYCERIN OINT 1 INCH/GM PACKET TOPICAL SCH ×2 (00:20→05:19)
[2019-05-06 03:11] LABS: Cholesterol 204 mg/dL (<200); HDL Cholesterol 51 mg/dL (40-60); LDL Cholesterol,Calculated 126 mg/dL (0-99); Triglycerides 136 mg/dL (<150)
[2019-05-06] MEDS ORDERED: ACETAMINOPHEN TAB 325 MG TAB PO STA (03:37)
[2019-05-06] MEDS ORDERED: LEVOTHYROXINE 50 MCG TAB PO SCH (06:30)
[2019-05-06 06:56] LABS: Glucose,Whole Blood 268 mg/dL (75-99)
[2019-05-06] MEDS: SYMBICORT 160-4.5 MCG INHALER INHALATION SCH (07:04)
[2019-05-06] MEDS ORDERED: PANTOPRAZOLE 40 MG TABLET PO SCH (07:30)
[2019-05-06] MEDS ORDERED: NAPROXEN 250 MG TAB PO STA (08:01)
[2019-05-06] MEDS: SERTRALINE 100 MG TAB PO SCH (08:55)
[2019-05-06] MEDS: glipiZIDE 5 MG TAB PO SCH ×2 (08:55→17:25)
[2019-05-06] MEDS: traMADol 50 MG TAB PO SCH (08:56)
[2019-05-06] MEDS: INSULIN ASPART (NovoLOG) 100 UNIT/ML VIAL SQ SCH ×3 (08:57→17:25)
[2019-05-06] MEDS ORDERED: ASPIRIN 81 MG PO SCH (09:00)
[2019-05-06] MEDS ORDERED: MONTELUKAST 10 MG TAB PO SCH (09:00)
[2019-05-06] MEDS ORDERED: ASPIRIN 325 MG TAB PO SCH (09:00)
[2019-05-06] MEDS ORDERED: METOPROLOL TARTRATE 12.5 MG TAB PO SCH (09:00)
[2019-05-06] MEDS ORDERED: LISINOPRIL 10 MG TAB PO SCH (09:00)
--- NOTE | 2019-05-06 09:29 | P.CRDCN ---
History of Present Illness History of present illness: HISTORY OF PRESENTING ILLNESS This is a pleasant 49-year-old female past medical history significant for hypertension, diabetes mellitus, asthma and obesity. She denies prior histo ry of coronary artery disease and does not follow in the office with a painter mirror. We have been asked to see in consultation for chest and back pain. She states for the last few weeks she has been experiencing a discomfort in the left upper back. The pain is sharp and sometimes radiates through to her anterior chest wall. The discomfort is reproducible on palpation and actually quite spasmodic during my exam. She denies shortness of breath, dizziness, nausea, vomiting or palpitations. She is tearful during my exam due to the pain. DIAGNOSTICS EKG reveals sinus mechanism. CTA chest negative for PE, lungs clear, no pericardial effusion and overall normal study. Laboratory reviewed, CBC unremarkable, cardiac enzymes negative 3, sodium 135, potassium 4.6, creatinine 0.61, LDL 126 and HDL 51. Current cardiac medications include aspirin 81 mg daily, lisinopril 10 mg daily. REVIEW OF SYSTEMS At the time of my exam: CONSTITUTIONAL: Denies fever or chills. CARDIOVASCULAR: Denies chest pain, shortness of breath, orthopnea, PND or palpitations. RESPIRATORY: Denies cough. GASTROINTESTINAL: Denies abdominal pain, diarrhea, constipation, nausea or vomiting. MUSCULOSKELETAL: Denies myalgias. NEUROLOGIC: Denies numbness, tingling or weakness. ENDOCRINE: Denies fatigue, weight change, polydipsia or polyurina. GENITOURINARY: Denies burning, hematuria or urgency with micturation. HEMATOLOGIC: Denies history of anemia or bleeding. PHYSICAL EXAMINATION Blood pressure 133/81 heart rate 89 afebrile and maintaining oxygen saturation on room air. CONSTITUTIONAL: No apparent distress. HEENT: Head is normocephalic. Pupils are equal, round. Sclerae anicteric. Mucous membranes of the mouth are moist. No JVD. No carotid bruit. CHEST EXAMINATION: Lungs are clear to auscultation. No chest wall tenderness is noted on palpation or with deep breathing. Left upper back discomfort with tight musculature noted. HEART EXAMINATION: Regular rate and rhythm. S1, S2 heard. No murmurs, gallops or rub. ABDOMEN: Soft, nontender. Positive bowel sounds. EXTREMITIES: 2+ peripheral pulses, no lower extremity edema and no calf tenderness. NEUROLOGIC EXAMINATION: Patient is awake, alert and oriented x3. ASSESSMENT Upper back pain, secondary to musculoskeletal strain Hypertension Dyslipidemia Diabetes mellitus Asthma Obesity, BMI 33 PLAN An acute coronary event has been ruled out. No EKG evidence of ischemia, cardiac enzymes negative 3 and no symptoms of angina. Initiate atorvastatin 40 mg daily given her history of diabetes mellitus and elevated LDL. Initiate on small dose of beta foster 12.5 mg twice a day. Discontinue Nitropaste. Given Naprosyn 250 mg now. Ongoing medical management and evaluation. No further cardiac workup at this time. Recommend outpatient chest testing when back discomfort has improved. Thank you kindly for this consultation. Nurse Practitioner note has been reviewed, I agree with a documented findings and plan of care. Patient was seen and examined. Past Medical History Past Medical History: Asthma, Chest Pain / Angina, Diabetes Mellitus, GERD/Reflux, Hypertension, Thyroid Disorder Additional Past Medical History / Comment(s): VARICOSE VEINS , HIATAL HERNIA History of Any Multi-Drug Resistant Organisms: None Reported Past Surgical History: Hernia Repair Additional Past Surgical History / Comment(s): EGD 11/18/14 Past Anesthesia/Blood Transfusion Reactions: No Reported Reaction Additional Past Anesthesia/Blood Transfusion Reaction / Comment(s): Pt has never had surgery. Past Psychological History: Depression Additional Psychological History / Comment(s): Pt lives with her spouse. She is independent. She does not drive. She uses no assistive devices or home care. Smoking Status: Never smoker Past Alcohol Use History: None Reported Past Drug Use History: None Reported - Past Family History Father Family Medical History: Myocardial Infarction ([place]) Additional Family Medical History / Comment(s): Father of "massive" [place] in his early 60's. Mother Family Medical History: No Reported History Additional Family Medical History / Comment(s): Mother is still living. Medications and Allergies Home Medications Medication Instructions Recorded Confirmed Type Cetirizine HCl [Zyrtec] 10 mg PO HS 09/06/14 05/05/19 History Levothyroxine Sodium [Synthroid] 50 mcg PO DAILY 09/06/14 05/05/19 History Lisinopril [Zestril] 10 mg PO DAILY 09/06/14 05/05/19 History Montelukast [Singulair] 10 mg PO DAILY 09/06/14 05/05/19 History glipiZIDE [Glucotrol] 5 mg PO BID 11/17/14 05/05/19 History Budesonide/Formoterol Fumarate 2 puff INHALATION RT-BID 12/30/17 05/05/19 History [Symbicort 160-4.5 Mcg Inhaler] Naproxen [Naprosyn] 500 mg PO Q12HR 12/30/17 05/05/19 History Sertraline [Zoloft] 100 mg PO BID 03/05/18 05/05/19 History Aspirin EC [Ecotrin Low Dose] 81 mg PO DAILY 05/05/19 05/05/19 History Gabapentin [Neurontin] 600 mg PO HS 05/05/19 05/05/19 History Gabapentin [Neurontin] 900 mg PO BID@0800,1200 05/05/19 05/05/19 History Omeprazole 20 mg PO DAILY 05/05/19 05/05/19 History traMADol HCl [Ultram] 50 mg PO BID 05/05/19 05/05/19 History Allergies Allergy/AdvReac Type Severity Reaction Status Date / Time No Known Allergies Allergy Verified 05/05/19 15:06 Physical Exam Vitals: Vital Signs Temp Pulse Pulse Resp BP BP Pulse Ox 05/06/19 08:00 97.9 F 89 18 133/81 97 05/06/19 04:00 97.0 F L 83 18 123/66 97 05/05/19 23:45 98.1 F 82 18 117/74 98 05/05/19 19:16 98 F 76 123/77 97 05/05/19 16:43 99 05/05/19 16:00 97.8 F 90 153/86 95 05/05/19 14:47 123/77 05/05/19 14:41 86 16 99 05/05/19 12:27 86 16 129/75 97 05/05/19 11:11 98.3 F 89 18 Intake and Output 05/05/19 05/06/19 05/06/19 22:59 06:59 14:59 Other: Voiding Method Toilet Toilet # Voids 1 1 1 Weight 108.862 kg 105.4 kg Results 05/05/19 11:24 05/05/19 11:24 Cardiac Enzymes 05/05/19 05/05/19 05/05/19 Range/Units 11:24 11:24 17:21 AST 29 (14-36) U/L Troponin I <0.012 <0.012 (0.000-0.034) ng/mL 05/05/19 Range/Units 23:26 AST (14-36) U/L Troponin I <0.012 (0.000-0.034) ng/mL Coagulation 05/05/19 Range/Units 11:24 PT 9.7 (9.0-12.0) sec APTT 23.1 (22.0-30.0) sec Lipids 05/05/19 Range/Units 11:24 Triglycerides 136 (<150) mg/dL Cholesterol 204 H (<200) mg/dL HDL Cholesterol 51 (40-60) mg/dL CBC 05/05/19 Range/Units 11:24 WBC 5.9 (3.8-10.6) k/uL RBC 4.46 (3.80-5.40) m/uL Hgb 13.6 (11.4-16.0) gm/dL Hct 40.9 (34.0-46.0) % Plt Count 338 (150-450) k/uL Comprehensive Metabolic Panel 05/05/19 Range/Units 11:24 Sodium 135 L (137-145) mmol/L Potassium 4.6 (3.5-5.1) mmol/L Chloride 105 (98-107) mmol/L Carbon Dioxide 23 (22-30) mmol/L BUN 15 (7-17) mg/dL Creatinine 0.61 (0.52-1.04) mg/dL Glucose 179 H (74-99) mg/dL Calcium 9.4 (8.4-10.2) mg/dL AST 29 (14-36) U/L ALT 23 (4-34) U/L Alkaline Phosphatase 62 (38-126) U/L Total Protein 7.5 (6.3-8.2) g/dL Albumin 4.4 (3.5-5.0) g/dL Current Medications Generic Name Dose Route Start Last Admin Trade Name Freq PRN Reason Stop Dose Admin Aspirin 81 mg 05/06/19 09:00 Aspirin PO DAILY NAIF Budesonide/Formoterol Fumarate 2 puff 05/05/19 20:00 05/06/19 07:04 Symbicort 160-4.5 Mcg Inhaler INHALATION 2 puff RT-BID NAIF Administration Diphenhydramine HCl 25 mg 05/05/19 20:09 05/05/19 20:47 Benadryl PO 25 mg TID PRN Administration itching Gabapentin 600 mg 05/05/19 21:00 05/05/19 20:46 Neurontin PO 600 mg HS NAIF Administration Glipizide 5 mg 05/05/19 17:30 05/05/19 18:45 Glucotrol PO 5 mg AC-BID NAIF Administration Insulin Aspart 0 unit 05/05/19 21:00 05/05/19 20:47 Novolog SQ 7 unit ACHS NAIF Administration Protocol Levothyroxine Sodium 50 mcg 05/06/19 06:30 05/06/19 05:24 Synthroid PO 50 mcg 0630 NAIF Administration Lisinopril 10 mg 05/06/19 09:00 Zestril PO DAILY [facility] Methylprednisolone Sodium Succinate 40 mg 05/05/19 16:45 05/06/19 00:14 Solu-Medrol IV 40 mg Q8HR NAIF Administration Metoprolol Tartrate 12.5 mg 05/06/19 09:00 Lopressor PO BID [facility] Montelukast Sodium 10 mg 05/06/19 09:00 Singulair PO DAILY [facility] Nitroglycerin 0.4 mg 05/05/19 15:00 Nitrostat SUBLINGUAL Q5M PRN Chest Pain Pantoprazole Sodium 40 mg 05/06/19 07:30 Protonix PO AC-BRKFST NAIF Sertraline HCl 100 mg 05/05/19 21:00 05/05/19 20:46 Zoloft PO 100 mg BID NAIF Administration Sodium Chloride 10 ml 05/05/19 21:00 05/05/19 20:48 Saline Flush IV 10 ml BID NAIF Administration Tramadol HCl 50 mg 05/05/19 21:00 05/05/19 20:47 Ultram PO 50 mg BID NAIF Administration Intake and Output 05/05/19 05/06/19 05/06/19 22:59 06:59 14:59 Other: Voiding Method Toilet Toilet # Voids 1 1 1 Weight 108.862 kg 105.4 kg 05/05/19 11:24 05/05/19 11:24
[2019-05-06] MEDS ORDERED: ATORVASTATIN 40 MG TAB PO SCH (09:30)
[2019-05-06 11:41] VITALS: TEMP 97.5
[2019-05-06 12:13] LABS: Glucose,Whole Blood 204 mg/dL (75-99)
--- NOTE | 2019-05-06 12:26 | US ---
EXAMINATION TYPE: US venous doppler duplex LE DATE OF EXAM: 05/06/2019 11:26 AM COMPARISON: NONE CLINICAL HISTORY: bilateral leg pain. Pain SIDE PERFORMED: TECHNIQUE: The lower extremity deep venous system is examined utilizing real time linear array sonog saud with graded compression, doppler sonography and color-flow sonography. VESSELS IMAGED: External Iliac Vein (EIV) Common Femoral Vein Deep Femoral Vein Greater Saphenous Vein * Femoral Vein Popliteal Vein Small Saphenous Vein * Proximal Calf Veins (* superficial vessels) Right Leg: Negative for DVT Left Leg: Negative for DVT IMPRESSION: No evidence for DVT at this time.
[2019-05-06] MEDS ORDERED: HYDROcodone/APAP 5-325MG 1 EACH TAB PO PRN (15:42)
[2019-05-06 16:01] VITALS: BP 148/71; PULSE 81
[2019-05-06 16:42] LABS: Glucose,Whole Blood 170 mg/dL (75-99)
--- NOTE | 2019-05-06 22:10 | HP ---
HISTORY AND PHYSICAL HISTORY: [id number]-old white female who came to the hospital with atypical chest pain smothering her, she cannot breathe. She states her inhalers at home do not work, she is unsure what is causing it, but it is a sharp pain, it radiates to the anterior chest wall, it is reproducible on palpation, it is spasmodic, some shortness of breath. inhalers don't work, she gets out of breath. EKG shows sinus rhythm. CTA was negative for PE. Her lungs are clear. No pericardial effusions. Cardiac enzymes are negative. Also complaining of leg pain today. Ultrasound of the legs is pending. REVIEW OF SYSTEMS: Fourteen-point review of systems is negative except for as mentioned in the history of present illness. PHYSICAL EXAMINATION: VITAL SIGNS: Blood pressure 132/81, heart rate 70s to 80s, maintaining oxygen on room air. PSYCH: Anxious, nervous. LUNGS: Lungs are clear. CHEST: No chest wall tenderness. HEART: S1 and S2. No murmurs, rubs, gallops. ABDOMEN: Soft, nontender. EXTREMITIES: Two plus peripheral edema. NEUROLOGIC: Alert and oriented times three. HEENT: Pupils are equal, round and reactive to light and accommodation. NECK: No jugular venous distention, no carotid bruits. ASSESSMENT: 1. Musculoskeletal strain in her back. 2. Costochondritis. 3. Atypical chest pain. 4. Asthma. Possibly a new inhaler will be needed. 5. Dyslipidemia. 6. Diabetes mellitus. 7. Obesity. Cardiology will clear. If ultrasound of the legs is negative, she may be able to be discharged home. Continue anti-inflammatories. Will get clearance from Cardiology. Pulmonary CTA is negative. MMODL / IJN: [id number] /
== END 2019-05-06 18:10 | disposition home or self-care (01) ==
LOC: EC 11:00 → 1SOBS 15:00
PROVIDERS: ADMIT Family Medicine; ATTEND Family Medicine
DX: R07.89 Other chest pain (principal); S39.012A Strain of muscle, fascia and tendon of lower back, initial encounter; M94.0 Chondrocostal junction syndrome [Tietze]; J45.909 Unspecified asthma, uncomplicated; E11.9 Type 2 diabetes mellitus without complications; K21.9 Gastro-esophageal reflux disease without esophagitis; K44.9 Diaphragmatic hernia without obstruction or gangrene; I20.9 Angina pectoris, unspecified; I10 Essential (primary) hypertension; E07.9 Disorder of thyroid, unspecified; E78.5 Hyperlipidemia, unspecified; X58.XXXA Exposure to other specified factors, initial encounter; F32.9 Major depressive disorder, single episode, unspecified; I83.90 Asymptomatic varicose veins of unspecified lower extremity; E66.9 Obesity, unspecified; Z68.33 Body mass index [BMI] 33.0-33.9, adult; Z79.890 Hormone replacement therapy; Z79.51 Long term (current) use of inhaled steroids; Z79.899 Other long term (current) drug therapy; Z79.84 Long term (current) use of oral hypoglycemic drugs; Z82.49 Family history of ischemic heart disease and other diseases of the circulatory system
CPT/HCPCS: 93005 ×2; 96375; 96376; 96374; 99285; 36415; 94640 ×2; 80061; 80053; 84484; 85025; 85610; 85730; 93970; 71275; G0378 ×2; J2270; J2920 ×2; Q9967

== ENCOUNTER 2020-03-03 08:15 | Emergency (ER) | payer OTHER ==
[2020-03-03 08:21] VITALS: RESP 18; TEMP 98.3
[2020-03-03] MEDS ORDERED: SODIUM CHLORIDE 0.9% 1,000 ML IV STA (08:57)
[2020-03-03 09:18] LABS: Basophils # (A) 0.1 k/uL (0-0.2); Basophils % (A) 1 %; Eosinophils # (A) 0.2 k/uL (0-0.7); Eosinophils % (A) 3 %; HCT 44.7 % (34.0-46.0); HGB 14.5 gm/dL (11.4-16.0); Lymphocytes # (A) 1.5 k/uL (1.0-4.8); Lymphocytes % (A) 25 %; MCH 29.7 pg (25.0-35.0); MCHC 32.4 g/dL (31.0-37.0); MCV 91.7 fL (80.0-100.0); Mean Platelet Volume 7.3; Monocytes # (A) 0.3 k/uL (0-1.0); Monocytes % (A) 4 %; Neutrophils % (A) 65 %; Platelet Count 343 k/uL (150-450); Poikilocytosis Slight; RBC 4.87 m/uL (3.80-5.40); RDW 15.2 % (11.5-15.5); WBC 6.2 k/uL (3.8-10.6)
[2020-03-03 09:19] LABS: Appearance,Urine Clear (Clear); Bilirubin,Urine Negative (Negative); Blood,Urine Negative (Negative); Color,Urine Light Yellow; Glucose,Urine (UA) 4+ (Negative); Ketones,Urine Negative (Negative); Leukocyte Esterase,Urine Negative (Negative); Nitrite,Urine Negative (Negative); Protein,Urine Negative (Negative); Urobilinogen,Urine <2.0 mg/dL (<2.0)
[2020-03-03 09:33] LABS: ALT 20 U/L (4-34); AST 22 U/L (14-36); African American GFR (CKD) >90 (>60 ml/min/1.73 sqM); Albumin 4.1 g/dL (3.5-5.0); Alkaline Phosphatase 72 U/L (38-126); Anion Gap 6 mmol/L; Blood Urea Nitrogen 13 mg/dL (7-17); Calcium 9.4 mg/dL (8.4-10.2); Carbon Dioxide 25 mmol/L (22-30); Chloride 106 mmol/L (98-107); Glucose 214 mg/dL (74-99); Lipase 431 U/L (23-300); Magnesium 1.8 mg/dL (1.6-2.3); Non-African American GFR(CKD) >90 (>60 ml/min/1.73 sqM); Potassium 4.5 mmol/L (3.5-5.1); Sodium 137 mmol/L (137-145); Total Bilirubin 0.6 mg/dL (0.2-1.3); Total Protein 7.4 g/dL (6.3-8.2)
--- NOTE | 2020-03-03 10:21 | ED ---
Abdominal Pain HPI - General Chief Complaint: Abdominal Pain Stated Complaint: Abd Pain Time Seen by Provider: 03/03/20 08:20 Source: patient Mode of arrival: ambulatory Limitations: no limitations - History of Present Illness Initial Comments: Patient is a 49-year-old female past medical history of asthma, diabetes who presents to emergency room with reported right upper quadrant abdominal pain. She states the pain has been intermittent for the past week. States it is a stabbing, sharp pain without a provocative factor. No associated nausea or v omiting. Denies any change in her bowel or bladder habits. No fevers or chills. Denies any back or flank pain. No history of abdominal surgeries. Patient also reports to a burning sensation which involves all 5 fingers of both hands. States she is a diabetic and does have neuropathy in her feet. Patient also questions a mass on her right forearm. States she never noticed it before but it is relatively tender. Denies any trauma to the area. No other alleviating, precipitating or modifying factors - Related Data Home Medications Medication Instructions Recorded Confirmed Cetirizine HCl [Zyrtec] 10 mg PO DAILY 09/06/14 03/03/20 Montelukast [Singulair] 10 mg PO DAILY 09/06/14 03/03/20 lisinopriL [Zestril] 10 mg PO DAILY 09/06/14 03/03/20 glipiZIDE [Glucotrol] 5 mg PO BID 11/17/14 03/03/20 Budesonide/Formoterol Fumarate 2 puff INHALATION RT-BID 12/30/17 03/03/20 [Symbicort 160-4.5 Mcg Inhaler] Naproxen [Naprosyn] 500 mg PO Q12HR PRN 12/30/17 03/03/20 Sertraline [Zoloft] 100 mg PO BID 03/05/18 03/03/20 Omeprazole 20 mg PO DAILY 05/05/19 03/03/20 traMADol HCl [Ultram] 50 - 100 mg PO TID 05/05/19 03/03/20 Dulaglutide [Trulicity] 1.5 mg SQ TU 03/03/20 03/03/20 Empagliflozin/Linagliptin 1 tab PO DAILY 03/03/20 03/03/20 [Glyxambi 10 mg-5 mg Tablet] Gabapentin 600 mg PO TID 03/03/20 03/03/20 Levothyroxine Sodium [Euthyrox] 50 mcg PO DAILY 03/03/20 03/03/20 Tiotropium [place] [Spiriva 1 spray INHALATION RT-DAILY 03/03/20 03/03/20 Respimat] Allergies Allergy/AdvReac Type Severity Reaction Status Date / Time No Known Allergies Allergy Verified 03/03/20 10:04 Review of Systems ROS Statement: Those systems with pertinent positive or pertinent negative responses have been documented in the HPI. ROS Other: All systems not noted in ROS Statement are negative. Past Medical History Past Medical History: Asthma, Chest Pain / Angina, Diabetes Mellitus, GERD/Refl ux, Hypertension, Thyroid Disorder Additional Past Medical History / Comment(s): VARICOSE VEINS , HIATAL HERNIA History of Any Multi-Drug Resistant Organisms: None Reported Past Surgical History: Hernia Repair Additional Past Surgical History / Comment(s): EGD 11/18/14 Past Anesthesia/Blood Transfusion Reactions: No Reported Reaction Additional Past Anesthesia/Blood Transfusion Reaction / Comment(s): Pt has never had surgery. Past Psychological History: Depression Smoking Status: Never smoker Past Alcohol Use History: None Reported Past Drug Use History: None Reported - Past Family History Father Family Medical History: Myocardial Infarction ([place]) Additional Family Medical History / Comment(s): Father of "massive" [place] in his early 60's. Mother Family Medical History: No Reported History Additional Family Medical History / Comment(s): Mother is still living. General Exam Limitations: no limitations General appearance: alert, in no apparent distress Head exam: Present: atraumatic, normocephalic, normal inspection Eye exam: Present: normal appearance, PERRL, EOMI. Absent: scleral icterus, conjunctival injection, periorbital swelling ENT exam: Present: normal exam, mucous membranes moist Neck exam: Present: normal inspection. Absent: tenderness, meningismus, lymphadenopathy Respiratory exam: Present: normal lung sounds bilaterally. Absent: respiratory distress, wheezes, rales, rhonchi, stridor Cardiovascular Exam: Present: regular rate, normal rhythm, normal heart sounds. Absent: systolic murmur, diastolic murmur, rubs, gallop, clicks GI/Abdominal exam: Present: soft, tenderness (epigastric, right upper quadrant), normal bowel sounds. Absent: distended, guarding, rebound, rigid Extremities exam: Present: full ROM, normal capillary refill. Absent: tenderness (right dorsal forearm - small 2.0 x 2.0 cm mobile subcutanous nodule palpated. No overylying redness or swelling. 2+ radial and ulnar pusles b/l. Intact sensation in the median, radial, and ulnar nerve distributions), pedal edema, joint swelling, calf tenderness Back exam: Present: normal inspection Neurological exam: Present: alert, oriented X3, CN II-XII intact Psychiatric exam: Present: normal affect, normal mood Skin exam: Present: warm, dry, intact, normal color. Absent: rash Course Vital Signs 03/03/20 03/03/20 08:19 11:26 Temperature 98.3 F 98.3 F Pulse Rate 96 82 Respiratory 18 18 Rate Blood Pressure 142/78 117/78 O2 Sat by Pulse 97 96 Oximetry Medical Decision Making - Medical Decision Making Upon arrival the patient is placed into room 19. A thorough history and physical exam was performed. Laboratory studies were conducted. They are reviewed and the patient does have a mildly elevated lipase at 431. HCG ne gative. On abdominal ultrasound was ordered of the right upper quadrant which demonstrates hepatic steatosis with hepatocellular disease. No signs of stones. No wall thickening. Ultrasound of the patient's right forearm was also performed which demonstrates a hypoechoic nonvascular area. No signs of overlying infectious process. His altered discuss the patient. I did discuss diagnosis, differential and treatment options. At this time I did recommend the patient follow up with Dr. Bello for her right forearm mass. Follow-up with her primary care doctor for a HIDA scan. Take Motrin and Tylenol alternating for pain. Return to the emergency room for any new or worsening symptoms. Bin mayo understood and agreed to the plan. She was discharged home in stable condition - Lab Data Result diagrams: 03/03/20 09:04 03/03/20 09:04 Lab Results 03/03/20 03/03/20 03/03/20 Range/Units 09:04 09:04 09:04 WBC 6.2 (3.8-10.6) k/uL RBC 4.87 (3.80-5.40) m/uL Hgb 14.5 (11.4-16.0) gm/dL Hct 44.7 (34.0-46.0) % MCV 91.7 (80.0-100.0) fL MCH 29.7 (25.0-35.0) pg MCHC 32.4 (31.0-37.0) g/dL RDW 15.2 (11.5-15.5) % Plt Count 343 (150-450) k/uL MPV 7.3 Neutrophils % 65 % Lymphocytes % 25 % Monocytes % 4 % Eosinophils % 3 % Basophils % 1 % Neutrophils # 4.0 (1.3-7.7) k/uL Lymphocytes # 1.5 (1.0-4.8) k/uL Monocytes # 0.3 (0-1.0) k/uL Eosinophils # 0.2 (0-0.7) k/uL Basophils # 0.1 (0-0.2) k/uL Poikilocytosis Slight Sodium 137 (137-145) mmol/L Potassium 4.5 (3.5-5.1) mmol/L Chloride 106 (98-107) mmol/L Carbon Dioxide 25 (22-30) mmol/L Anion Gap 6 mmol/L BUN 13 (7-17) mg/dL Creatinine 0.75 (0.52-1.04) mg/dL Est GFR (CKD-EPI)AfAm >90 (>60 ml/min/1.73 sqM) Est GFR (CKD-EPI)NonAf >90 (>60 ml/min/1.73 sqM) Glucose 214 H (74-99) mg/dL Plasma Lactic Acid [place] (0.7-2.0) mmol/L Calcium 9.4 (8.4-10.2) mg/dL Magnesium 1.8 (1.6-2.3) mg/dL Total Bilirubin 0.6 (0.2-1.3) mg/dL AST 22 (14-36) U/L ALT 20 (4-34) U/L Alkaline Phosphatase 72 (38-126) U/L Troponin I (0.000-0.034) ng/mL Total Protein 7.4 (6.3-8.2) g/dL Albumin 4.1 (3.5-5.0) g/dL Lipase 431 H (23-300) U/L Urine Color Light Yellow Urine Appearance Clear (Clear) Urine pH 6.0 (5.0-8.0) Ur Specific Vader 1.030 (1.001-1.035) Urine Protein Negative (Negative) Urine Glucose (UA) 4+ H (Negative) Urine Ketones Negative (Negative) Urine Blood Negative (Negative) Urine Nitrite Negative (Negative) Urine Bilirubin Negative (Negative) Urine Urobilinogen <2.0 (<2.0) mg/dL Ur Leukocyte Esterase Negative (Negative) Urine HCG, Qual (Not Detectd) 03/03/20 03/03/20 03/03/20 Range/Units 09:04 09:04 09:04 WBC (3.8-10.6) k/uL RBC (3.80-5.40) m/uL Hgb (11.4-16.0) gm/dL Hct (34.0-46.0) % MCV (80.0-100.0) fL MCH (25.0-35.0) pg MCHC (31.0-37.0) g/dL RDW (11.5-15.5) % Plt Count (150-450) k/uL MPV Neutrophils % % Lymphocytes % % Monocytes % % Eosinophils % % Basophils % % Neutrophils # (1.3-7.7) k/uL Lymphocytes # (1.0-4.8) k/uL Monocytes # (0-1.0) k/uL Eosinophils # (0-0.7) k/uL Basophils # (0-0.2) k/uL Poikilocytosis Sodium (137-145) mmol/L Potassium (3.5-5.1) mmol/L Chloride (98-107) mmol/L Carbon Dioxide (22-30) mmol/L Anion Gap mmol/L BUN (7-17) mg/dL Creatinine (0.52-1.04) mg/dL Est GFR (CKD-EPI)AfAm (>60 ml/min/1.73 sqM) Est GFR (CKD-EPI)NonAf (>60 ml/min/1.73 sqM) Glucose (74-99) mg/dL Plasma Lactic Acid [place] 1.2 (0.7-2.0) mmol/L Calcium (8.4-10.2) mg/dL Magnesium (1.6-2.3) mg/dL Total Bilirubin (0.2-1.3) mg/dL AST (14-36) U/L ALT (4-34) U/L Alkaline Phosphatase (38-126) U/L Troponin I <0.012 (0.000-0.034) ng/mL Total Protein (6.3-8.2) g/dL Albumin (3.5-5.0) g/dL Lipase (23-300) U/L Urine Color Urine Appearance (Clear) Urine pH (5.0-8.0) Ur Specific Vader (1.001-1.035) Urine Protein (Negative) Urine Glucose (UA) (Negative) Urine Ketones (Negative) Urine Blood (Negative) Urine Nitrite (Negative) Urine Bilirubin (Negative) Urine Urobilinogen (<2.0) mg/dL Ur Leukocyte Esterase (Negative) Urine HCG, Qual Not Detected (Not Detectd) - EKG Data EKG Comments: EKG demonstrates a normal sinus rhythm with ventricular rate of 91. ND interval 164. QRS 90. QTC of 464. No acute ST segment elevations or depressions concer estephania for ischemic changes Disposition Clinical Impression: Right upper quadrant abdominal pain, Arm mass Disposition: HOME SELF-CARE Condition: Stable Instructions (If sedation given, give patient instructions): Abdominal Pain (ED) Additional Instructions: Please follow up with your GI doctor. I recommend a HIDA scan and repeat of your lipase level in 1 week. Return to the ED for any new or worsening symptoms. I also recommend you see Dr. Bello for possible removal of your arm mass Is patient prescribed a controlled substance at d/c from ED?: No Referrals: Nestor French MD [Primary Care Provider] - 1-2 days Mariia Bello MD [STAFF PHYSICIAN] - 1-2 days Eddie Mata MD [STAFF PHYSICIAN] - 1-2 days Time of Disposition: 11:40
--- NOTE | 2020-03-03 10:28 | XR ---
EXAMINATION TYPE: XR chest 2V DATE OF EXAM: 03/03/2020 COMPARISON: 05/06/2017 HISTORY: 49 year-old female abdominal pain TECHNIQUE: PA and lateral views FINDINGS: The cardiomediastinal silhouette, aorta, and pulmonary vasculature are within normal limits. Lungs an d pleural spaces are clear. IMPRESSION: No acute cardiopulmonary process.
--- NOTE | 2020-03-03 10:52 | US ---
EXAMINATION TYPE: US abdomen limited DATE OF EXAM: 03/03/2020 COMPARISON: NONE CLINICAL HISTORY: right upper quadrant. RUQ Pain EXAM MEASUREMENTS: Liver Length: 19.3 cm Gallbladder Wall: .3 cm CBD: 0.4 cm Right Kidney: 10.8 x 4.3 x 4.6 cm Pancreas: Obscured by bowel gas Liver: Increased attenuation Gallbladder: No stones seen Evidence for sonographic Martinez's sign: No CBD: wnl Right Kidney: No hydronephrosis or masses seen Visualized inferior vena cava is normal. There is no ascites. Right kidney shows normal cortical medu llary differentiation. Liver is enlarged. IMPRESSION: Exam is somewhat limited. Correlate for hepatic steatosis, hepatocellular disease.
--- NOTE | 2020-03-03 10:54 | US ---
EXAMINATION TYPE: US extremity nonvasc mass RT DATE OF EXAM: 03/03/2020 COMPARISON: NONE CLINICAL HISTORY: soft tissue mass. Lump right fore arm. Hypoechoic non vascular area seen at palpable lump measuring 1.7 x .5 x .9 cm. Limited scanning performed at the site of patient's clinical abnormality. IMPRESSION: Indeterminate abnormality, localized infection is not excluded, follow-up, alternate christos ging may be of benefit
[2020-03-03 11:32] VITALS: BP 117/78; PULSE 82
== END 2020-03-03 12:45 | disposition home or self-care (01) ==
LOC: EC 08:15
DX: R10.11 Right upper quadrant pain (principal); R22.31 Localized swelling, mass and lump, right upper limb; K76.9 Liver disease, unspecified; K76.0 Fatty (change of) liver, not elsewhere classified; E11.40 Type 2 diabetes mellitus with diabetic neuropathy, unspecified; F32.9 Major depressive disorder, single episode, unspecified; J45.909 Unspecified asthma, uncomplicated; K21.9 Gastro-esophageal reflux disease without esophagitis; I10 Essential (primary) hypertension; E07.9 Disorder of thyroid, unspecified; Z79.51 Long term (current) use of inhaled steroids; Z79.84 Long term (current) use of oral hypoglycemic drugs; Z79.890 Hormone replacement therapy; Z79.899 Other long term (current) drug therapy
CPT/HCPCS: 36415; 71046; 76705; 80053; 81003; 81025; 83605; 83690; 83735; 84484; 85025; 93005; 96360; 96361; 99284

== ENCOUNTER 2020-03-08 10:30 | Observation (INO) | payer OTHER ==
[2020-03-08] MEDS: PANTOPRAZOLE 40 MG/10 ML VIAL IVP SCH (12:27)
[2020-03-08] MEDS: HYDROmorphone 0.5 MG/0.5 ML SYRINGE IVP PRN ×2 (12:27→21:09)
[2020-03-08] MEDS: SODIUM CHLORIDE 0.9% 1,000 ML IV SCH (12:28)
[2020-03-08 12:34] LABS: Glucose,Whole Blood 145 mg/dL (75-99)
[2020-03-08 13:40] LABS: Basophils # (A) 0.1 k/uL (0-0.2); Basophils % (A) 1 %; Eosinophils # (A) 0.1 k/uL (0-0.7); Eosinophils % (A) 2 %; HGB 14.8 gm/dL (11.4-16.0); Lymphocytes # (A) 1.6 k/uL (1.0-4.8); Lymphocytes % (A) 25 %; MCH 30.5 pg (25.0-35.0); MCV 92.5 fL (80.0-100.0); Mean Platelet Volume 7.1; Monocytes # (A) 0.3 k/uL (0-1.0); Monocytes % (A) 4 %; Neutrophils # (A) 4.1 k/uL (1.3-7.7); Neutrophils % (A) 67 %; Platelet Count 327 k/uL (150-450); RBC 4.86 m/uL (3.80-5.40); RDW 14.5 % (11.5-15.5); WBC 6.2 k/uL (3.8-10.6)
[2020-03-08 13:51] LABS: ALT 26 U/L (4-34); AST 31 U/L (14-36); African American GFR (CKD) >90 (>60 ml/min/1.73 sqM); Albumin 4.1 g/dL (3.5-5.0); Alkaline Phosphatase 64 U/L (38-126); Anion Gap 3 mmol/L; Blood Urea Nitrogen 13 mg/dL (7-17); Calcium 9.2 mg/dL (8.4-10.2); Carbon Dioxide 32 mmol/L (22-30); Chloride 102 mmol/L (98-107); Glucose 134 mg/dL (74-99); Non-African American GFR(CKD) 88 (>60 ml/min/1.73 sqM); Potassium 4.8 mmol/L (3.5-5.1); Sodium 137 mmol/L (137-145); Total Bilirubin 0.6 mg/dL (0.2-1.3); Total Protein 7.3 g/dL (6.3-8.2)
[2020-03-08] MEDS ORDERED: NAPROXEN 250 MG TAB PO PRN (13:57)
--- NOTE | 2020-03-08 14:26 | P.GSCN ---
History of Present Illness Consult date: 03/08/20 History of present illness: CHIEF COMPLAINT: Abdominal pain HISTORY OF PRESENT ILLNESS: This is a 49-year-old female with a known history of asthma, diabetes mellitus, GERD, hypertension, hiatal hernia and Vidya fundoplication. Patient is a direct admit from Dr. Bailey's office regarding right upper quadrant abdominal pain. Patient had been seen in the ER on 03/03 regarding right upper quadrant pain. She had an abdominal ultrasound completed which said that the exam was somewhat limited. Correlate for hepatic steatosis and hepatocellular disease. Patient has been having right upper quadrant pain for about a week. She denies any nausea or vomiting. Denies any fever or chills. Surgery consult was placed for abdominal pain. PAST MEDICAL HISTORY: See list. PAST SURGICAL HISTORY: See list. MEDICATIONS: See list. ALLERGIES: See list. SOCIAL HISTORY: No illicit drug use. REVIEW OF SYSTEMS: CONSTITUTIONAL: Denies fever or chills. HEENT: Denies blurred vision, vision changes, or eye pain. Denies hemoptysis CARDIOVASCULAR: Denies chest pain or pressure. RESPIRATORY: No shortness of breath. GASTROINTESTINAL: See HPI for pertinent findings HEMATOLOGIC: Denies bleeding disorders. GENITOURINARY: Denies any blood in urine or increased urinary frequency. SKIN: Denies pruitis. Denies rash. PHYSICAL EXAM: VITAL SIGNS: Reviewed GENERAL: Well-developed in no acute distress. HEENT: No sclera icterus. Extraocular movements grossly intact. Moist buccal mucosa. Head is atraumatic, normocephalic. No nasal drainage. ABDOMEN: Soft. Nondistended. Tenderness with patient of the right upper quadrant NEUROLOGIC: Alert and oriented. Cranial nerves II through XII grossly intact. LABORATORY DATA: WBC 6.2 hemoglobin 14.8 AST 31 ALT 26 alk phos 64 total bilirubin 0.6 IMAGING: abdominal ultrasound completed which said that the exam was somewhat limited. Correlate for hepatic steatosis and hepatocellular disease. ASSESSMENT: 1. Right upper quadrant abdominal pain 2. History of GERD status post laparoscopic Vidya fundoplication PLAN: -Check HIDA scan -Keep patient nothing by mouth for HIDA scan -Continue IV fluids -Continue pain medication as needed Thank you for this consultation Physician Centrifugal Station Operator note has been reviewed by physician. Signing provider agrees with the documented findings, assessment, and plan of care. Past Medical History Past Medical History: Asthma, Chest Pain / Angina, Diabetes Mellitus, GERD/Reflux, Hypertension, Thyroid Disorder Additional Past Medical History / Comment(s): VARICOSE VEINS , HIATAL HERNIA History of Any Multi-Drug Resistant Organisms: None Reported Past Surgical History: Hernia Repair Additional Past Surgical History / Comment(s): EGD 11/18/14 Past Anesthesia/Blood Transfusion Reactions: No Reported Reaction Additional Past Anesthesia/Blood Transfusion Reaction / Comm: Pt has never had surgery. Smoking Status: Never smoker - Past Family History Father Family Medical History: Myocardial Infarction ([place]) Additional Family Medical History / Comment(s): Father of "massive" [place] in his early 60's. Mother Family Medical History: No Reported History Additional Family Medical History / Comment(s): Mother is still living. Medications and Allergies Home Medications Medication Instructions Recorded Confirmed Type Cetirizine HCl [Zyrtec] 10 mg PO DAILY 09/06/14 03/08/20 History Montelukast [Singulair] 10 mg PO DAILY 09/06/14 03/08/20 History lisinopriL [Zestril] 10 mg PO DAILY 09/06/14 03/08/20 History glipiZIDE [Glucotrol] 5 mg PO BID 11/17/14 03/08/20 History Budesonide/Formoterol Fumarate 2 puff INHALATION RT-BID 12/30/17 03/08/20 History [Symbicort 160-4.5 Mcg Inhaler] Naproxen [Naprosyn] 500 mg PO Q12HR PRN 12/30/17 03/08/20 History Sertraline [Zoloft] 100 mg PO BID 03/05/18 03/08/20 History Omeprazole 20 mg PO DAILY 05/05/19 03/08/20 History traMADol HCl [Ultram] 50 - 100 mg PO TID 05/05/19 03/08/20 History Dulaglutide [Trulicity] 1.5 mg SQ TU 03/03/20 03/08/20 History Empagliflozin/Linagliptin 1 tab PO DAILY 03/03/20 03/08/20 History [Glyxambi 10 mg-5 mg Tablet] Gabapentin 600 mg PO TID 03/03/20 03/08/20 History Levothyroxine Sodium [Euthyrox] 50 mcg PO DAILY 03/03/20 03/08/20 History Tiotropium [place] [Spiriva 1 puff INHALATION RT-DAILY 03/03/20 03/08/20 History Respimat] Allergies Allergy/AdvReac Type Severity Reaction Status Date / Time No Known Allergies Allergy Verified 03/08/20 11:54 Surgical - Exam Vital Signs Temp Pulse Resp BP Pulse Ox 97.8 F 83 14 131/80 96 03/08/20 13:55 03/08/20 13:55 03/08/20 13:55 03/08/20 13:55 03/08/20 13:55 Results - Labs 03/08/20 13:12 03/08/20 13:12 Abnormal Lab Results - Last 24 Hours (Table) 03/08/20 03/08/20 Range/Units 12:32 13:12 Carbon Dioxide 32 H (22-30) mmol/L Glucose 134 H (74-99) mg/dL POC Glucose (mg/dL) 145 H (75-99) mg/dL Diabetes panel 03/08/20 Range/Units 13:12 Sodium 137 (137-145) mmol/L Potassium 4.8 (3.5-5.1) mmol/L Chloride 102 (98-107) mmol/L Carbon Dioxide 32 H (22-30) mmol/L BUN 13 (7-17) mg/dL Creatinine 0.80 (0.52-1.04) mg/dL Glucose 134 H (74-99) mg/dL Calcium 9.2 (8.4-10.2) mg/dL AST 31 (14-36) U/L ALT 26 (4-34) U/L Alkaline Phosphatase 64 (38-126) U/L Total Protein 7.3 (6.3-8.2) g/dL Albumin 4.1 (3.5-5.0) g/dL Calcium panel 03/08/20 Range/Units 13:12 Calcium 9.2 (8.4-10.2) mg/dL Albumin 4.1 (3.5-5.0) g/dL Pituitary panel 03/08/20 Range/Units 13:12 Sodium 137 (137-145) mmol/L Potassium 4.8 (3.5-5.1) mmol/L Chloride 102 (98-107) mmol/L Carbon Dioxide 32 H (22-30) mmol/L BUN 13 (7-17) mg/dL Creatinine 0.80 (0.52-1.04) mg/dL Glucose 134 H (74-99) mg/dL Calcium 9.2 (8.4-10.2) mg/dL Adrenal panel 03/08/20 Range/Units 13:12 Sodium 137 (137-145) mmol/L Potassium 4.8 (3.5-5.1) mmol/L Chloride 102 (98-107) mmol/L Carbon Dioxide 32 H (22-30) mmol/L BUN 13 (7-17) mg/dL Creatinine 0.80 (0.52-1.04) mg/dL Glucose 134 H (74-99) mg/dL Calcium 9.2 (8.4-10.2) mg/dL Total Bilirubin 0.6 (0.2-1.3) mg/dL AST 31 (14-36) U/L ALT 26 (4-34) U/L Alkaline Phosphatase 64 (38-126) U/L Total Protein 7.3 (6.3-8.2) g/dL Albumin 4.1 (3.5-5.0) g/dL
[2020-03-08] MEDS: IPRATROPIUM-ALBUTEROL 3 ML NEB INHALATION PRN (15:05)
[2020-03-08] MEDS: INSULIN ASPART (NovoLOG) 100 UNIT/ML VIAL SQ SCH ×2 (16:47→19:16)
--- NOTE | 2020-03-08 19:06 | NM ---
EXAMINATION TYPE: NM hepatobiliary w CCK DATE OF EXAM: 03/08/2020 COMPARISON: NONE HISTORY: Pain TECHNIQUE: After the intravenous administration of 5.2 mCi Tc 99m Mebrofenin hepatobiliary scintigrap hy is performed. Immediate images post injection. FINDINGS: There is satisfactory initial accumulation of tracer by the liver. The gallbladder is visualized wit hin 15 minutes. The small bowel activity is noted within 18 minutes. At one hour CCK was administer ed, patient was injected with 2.2 mcg of Kinevac, and gallbladder ejection fraction is calculated at 16 %, which is below normal.. There is no focal liver defect. IMPRESSION: No evidence of cystic duct or common bile duct obstruction. No focal liver defect. 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 Normal is more than 35%.
[2020-03-08] MEDS: traMADol 50 MG TAB PO SCH (19:07)
[2020-03-08] MEDS: GABAPENTIN 300 MG CAP PO SCH (19:07)
[2020-03-08] MEDS: glipiZIDE 5 MG TAB PO SCH (19:08)
[2020-03-08] MEDS: SYMBICORT 160-4.5 MCG INHALER INHALATION SCH (20:03)
[2020-03-08] MEDS: SERTRALINE 100 MG TAB PO SCH (21:09)
[2020-03-08 21:18] LABS: Glucose,Whole Blood 129 mg/dL (75-99)
[2020-03-09] MEDS: GABAPENTIN 300 MG CAP PO SCH ×3 (01:45→17:15)
[2020-03-09] MEDS: traMADol 50 MG TAB PO SCH ×3 (01:45→17:06)
[2020-03-09 01:49] LABS: Glucose,Whole Blood 183 mg/dL (75-99)
[2020-03-09] MEDS: INSULIN ASPART (NovoLOG) 100 UNIT/ML VIAL SQ SCH ×3 (01:53→17:06)
[2020-03-09] MEDS: SODIUM CHLORIDE 0.9% 1,000 ML IV SCH (01:54)
[2020-03-09 03:32] VITALS: RESP 16
[2020-03-09 06:22] LABS: Glucose,Whole Blood 178 mg/dL (75-99)
[2020-03-09] MEDS ORDERED: LEVOTHYROXINE 50 MCG TAB PO SCH (06:30)
[2020-03-09] MEDS: HYDROmorphone 0.5 MG/0.5 ML SYRINGE IVP PRN (07:58)
[2020-03-09] MEDS ORDERED: TIOTROPIUM 2.5 MCG INHALER INHALATION SCH (08:00)
[2020-03-09] MEDS: IPRATROPIUM-ALBUTEROL 3 ML NEB INHALATION PRN (08:23)
[2020-03-09] MEDS: SYMBICORT 160-4.5 MCG INHALER INHALATION SCH (08:25)
[2020-03-09] MEDS ORDERED: NON FORMULARY DRUG (Omeprazole [Omeprazole] 20 MG Capsule.Dr) PO SCH (09:00)
[2020-03-09] MEDS ORDERED: LINAGLIPTIN PO SCH (09:00)
[2020-03-09] MEDS ORDERED: MONTELUKAST 10 MG TAB PO SCH (09:00)
[2020-03-09] MEDS ORDERED: EMPAGLIFLOZIN PO SCH (09:00)
[2020-03-09] MEDS ORDERED: lisinopriL 10 MG TAB PO SCH (09:00)
[2020-03-09] MEDS ORDERED: LORATADINE 10 MG TAB PO SCH (09:00)
[2020-03-09] MEDS: SERTRALINE 100 MG TAB PO SCH (09:09)
[2020-03-09] MEDS: PANTOPRAZOLE 40 MG/10 ML VIAL IVP SCH (09:09)
[2020-03-09] MEDS: glipiZIDE 5 MG TAB PO SCH (09:10)
--- NOTE | 2020-03-09 11:19 | P.PN ---
Subjective Progress Note Date: 03/09/20 CHIEF COMPLAINT: Right upper quadrant abdominal pain HISTORY OF PRESENT ILLNESS: Patient is being followed in regards to her right upper quadrant abdominal pain. She had a HIDA scan completed which showed a hypokinetic gallbladder with a EF of 16%. Patient is still reporting her right upper quadrant pain is about the same and she's having nausea. Afebrile. No new labs for today PHYSICAL EXAM: VITAL SIGNS: Reviewed. GENERAL: Well-developed in no acute distress. HEENT: No sclera icterus. Extraocular movements grossly intact. Moist buccal mucosa. Head is atraumatic, normocephalic. ABDOMEN: Soft. Nondistended. Right upper quadrant tenderness NEUROLOGIC: Alert and oriented. Cranial nerves II through XII grossly intact. ASSESSMENT: 1. 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 History of GERD status post laparoscopic Vidya fundoplication PLAN: -Start clear liquid diet -Patient will need laparoscopic cholecystectomy possibly Friday or Friday of next week -Continue IV fluids -Continue pain medication as needed Physician Flat Lock Machine Operator note has been reviewed by physician. Signing provider agrees with the documented findings, assessment, and plan of care. Objective - Vital Signs Vital signs: Vital Signs Temp 97.6 F 03/09/20 07:54 Pulse 68 03/09/20 08:35 Resp 16 03/09/20 03:25 BP 118/78 03/09/20 07:54 Pulse Ox 96 03/09/20 03:25 Intake & Output 03/08/20 03/09/20 03/09/20 18:59 06:59 18:59 Weight 107 kg Other: Voiding Method Toilet Toilet Toilet # Voids 1 1 - Labs CBC & Chem 7: 03/08/20 13:12 03/08/20 13:12 Labs: Abnormal Lab Results - Last 24 Hours (Table) 03/08/20 03/08/20 03/08/20 Range/Units 12:32 13:12 21:17 Carbon Dioxide 32 H (22-30) mmol/L Glucose 134 H (74-99) mg/dL POC Glucose (mg/dL) 145 H 129 H (75-99) mg/dL 03/09/20 03/09/20 Range/Units 01:48 06:20 Carbon Dioxide (22-30) mmol/L Glucose (74-99) mg/dL POC Glucose (mg/dL) 183 H 178 H (75-99) mg/dL
[2020-03-09 12:52] LABS: Basophils % (A) 1 %; Eosinophils # (A) 0.1 k/uL (0-0.7); Eosinophils % (A) 2 %; HGB 13.7 gm/dL (11.4-16.0); Lymphocytes # (A) 1.4 k/uL (1.0-4.8); Lymphocytes % (A) 20 %; MCH 29.3 pg (25.0-35.0); MCHC 31.9 g/dL (31.0-37.0); MCV 91.8 fL (80.0-100.0); Monocytes # (A) 0.2 k/uL (0-1.0); Monocytes % (A) 3 %; Neutrophils # (A) 5.1 k/uL (1.3-7.7); Neutrophils % (A) 73 %; Platelet Count 357 k/uL (150-450); RBC 4.69 m/uL (3.80-5.40); RDW 14.9 % (11.5-15.5); WBC 6.9 k/uL (3.8-10.6)
[2020-03-09 12:58] LABS: ALT 29 U/L (4-34); AST 32 U/L (14-36); African American GFR (CKD) >90 (>60 ml/min/1.73 sqM); Alkaline Phosphatase 57 U/L (38-126); Anion Gap 8 mmol/L; Blood Urea Nitrogen 11 mg/dL (7-17); Calcium 8.8 mg/dL (8.4-10.2); Carbon Dioxide 26 mmol/L (22-30); Chloride 103 mmol/L (98-107); Glucose 158 mg/dL (74-99); Lipase 146 U/L (23-300); Non-African American GFR(CKD) >90 (>60 ml/min/1.73 sqM); Potassium 4.7 mmol/L (3.5-5.1); Sodium 137 mmol/L (137-145); Total Bilirubin 0.7 mg/dL (0.2-1.3); Total Protein 7.2 g/dL (6.3-8.2)
--- NOTE | 2020-03-09 12:58 | HP ---
HISTORY AND PHYSICAL A white female came in with severe right upper quadrant abdominal pain, worsening over the last few days, severe pain radiating to her back. Elevated lipase in the ER, sent her home. She was admitted for severe abdominal pain. Surgical consultation/ She had a positive HIDA scan showed cholecystectomy. She has acute chronic cholecystitis. MEDICATIONS: See list. 14 POINT REVIEW OF SYSTEMS: Negative except for as mentioned in HPI. PHYSICAL EXAMINATION: Vital signs stable, afebrile. CARDIOVASCULAR: S1, S2. LUNGS: Scattered wheeze. HEMATOLOGY: Negative Homans. PSYCH: Fair mood and affect. NEUROLOGIC: Alert and oriented x3. ABDOMEN: Tender to palpation, right upper quadrant, mid epigastric. Questionable Homans sign. ASSESSMENT: Acute cholecystitis, acute on chronic cholecystitis, asthma, hypertension, diabetes, hypothyroidism. Continue current treatment with home medicines. Possible cholecystectomy. MMODL / IJN: [id number] /
[2020-03-09 13:09] LABS: Glucose,Whole Blood 132 mg/dL (75-99)
[2020-03-09 16:00] VITALS: BP 126/80; PULSE 80; TEMP 98
[2020-03-09 16:50] LABS: Glucose,Whole Blood 141 mg/dL (75-99)
== END 2020-03-09 18:31 | disposition home or self-care (01) ==
LOC: 1SOBS 11:34
PROVIDERS: ADMIT Family Medicine; ATTEND Family Medicine
DX: K81.2 Acute cholecystitis with chronic cholecystitis (principal); E11.9 Type 2 diabetes mellitus without complications; I10 Essential (primary) hypertension; J45.909 Unspecified asthma, uncomplicated; R74.8 Abnormal levels of other serum enzymes; E03.9 Hypothyroidism, unspecified; I83.90 Asymptomatic varicose veins of unspecified lower extremity; Z79.84 Long term (current) use of oral hypoglycemic drugs; Z79.51 Long term (current) use of inhaled steroids; Z79.1 Long term (current) use of non-steroidal anti-inflammatories (NSAID); Z79.891 Long term (current) use of opiate analgesic; Z79.890 Hormone replacement therapy; Z79.899 Other long term (current) drug therapy; Z87.19 Personal history of other diseases of the digestive system; Z98.890 Other specified postprocedural states; Z82.49 Family history of ischemic heart disease and other diseases of the circulatory system
CPT/HCPCS: 96374; 96375; 96376 ×2; 94640 ×3; 80053 ×2; 83690; 85025 ×2; 78227; G0378 ×2; G0379; A9537; J2805; C9113 ×2; J1170 ×2

== ENCOUNTER 2020-03-13 10:04 | Day surgery (SDC) | payer OTHER ==
[2020-03-10 08:57] VITALS: BMI 40.7
--- NOTE | 2020-03-13 09:46 | P.GSHP ---
History of Present Illness H&P Date: 03/13/20 Chief Complaint: Right upper quadrant pain This a 41-year-old female who presents today for laparoscopic cholestatic. Patient had complaints of pain. Recent HIDA scan shows abnormal ejection fraction consistent with chronic cholecystitis. Past Medical History Past Medical History: Asthma, Chest Pain / Angina, Diabetes Mellitus, GERD/Reflux, Hypertension, Thyroid Disorder Additional Past Medical History / Comment(s): VARICOSE VEINS , HIATAL HERNIA History of Any Multi-Drug Resistant Organisms: None Reported Past Surgical History: Hernia Repair Additional Past Surgical History / Comment(s): EGD 11/18/14 Past Anesthesia/Blood Transfusion Reactions: No Reported Reaction Additional Past Anesthesia/Blood Transfusion Reaction / Comment(s): no hx blood transfusion Smoking Status: Never smoker - Past Family History Father Family Medical History: Myocardial Infarction ([place]) Additional Family Medical History / Comment(s): Father of "massive" [place] in his early 60's. Mother Family Medical History: No Reported History Additional Family Medical History / Comment(s): Mother is still living. Medications and Allergies Home Medications Medication Instructions Recorded Confirmed Type Cetirizine HCl [Zyrtec] 10 mg PO DAILY 09/06/14 03/10/20 History Montelukast [Singulair] 10 mg PO HS 09/06/14 03/10/20 History lisinopriL [Zestril] 10 mg PO QAM 09/06/14 03/10/20 History Budesonide/Formoterol Fumarate 2 puff INHALATION RT-BID 12/30/17 03/10/20 History [Symbicort 160-4.5 Mcg Inhaler] Naproxen [Naprosyn] 500 mg PO Q12HR PRN 12/30/17 03/10/20 History Sertraline [Zoloft] 100 mg PO BID 03/05/18 03/10/20 History Omeprazole 20 mg PO QAM 05/05/19 03/10/20 History traMADol HCl [Ultram] 50 - 100 mg PO TID PRN 05/05/19 03/10/20 History Dulaglutide [Trulicity] 1.5 mg SQ TU 03/03/20 03/10/20 History Gabapentin 600 mg PO TID 03/03/20 03/10/20 History Levothyroxine Sodium [Euthyrox] 50 mcg PO QAM 03/03/20 03/10/20 History Tiotropium [place] [Spiriva 1 puff INHALATION QAM 03/03/20 03/10/20 History Respimat] glipiZIDE XL [Glucotrol Xl] 5 mg PO DAILY 03/10/20 03/10/20 History Allergies Allergy/AdvReac Type Severity Reaction Status Date / Time No Known Allergies Allergy Verified 03/10/20 08:43 Surgical - Exam - General well developed, well nourished, no distress - Eyes PERRL - ENT normal pinna - Neck no masses - Respiratory normal expansion - Cardiovascular Rhythm: regular - Abdomen Abdomen: soft, non tender Assessment and Plan Assessment: Right upper quadrant pain. Chronic cholecystitis We'll perform laparoscopic c holecystectomy
[~2020-03-13 10:04] MED LIST changes: +ACETAMINOPHEN TAB 500 MG TAB PO PRN; +HEPARIN SODIUM,PORCINE 5,000 UNIT/ML 1 ML VIAL SQ PRN; -HYDROmorphone 0.5 MG/0.5 ML SYRINGE IVP PRN; -LACTATED RINGERS 1,000 ML IV SCH; -LIDOCAINE 1% 20 ML VIAL (10MG/ML) FOR IV START INTRADERMA PRN; -ONDANSETRON 4 MG/2 ML VIAL IVP ONE; -Pre Op ABX Message 1 EACH MISC MISCELLANE ONE
[2020-03-13] MEDS ORDERED: LACTATED RINGERS 1,000 ML IV ONE ×2 (10:26→12:29)
[2020-03-13] MEDS ORDERED: DEXAMETHASONE SOD PHOSPHATE 4 MG/ML 1 ML VIAL IVP ONE (10:34)
[2020-03-13] MEDS ORDERED: ONDANSETRON 4 MG/2 ML VIAL IVP ONE (10:34)
[2020-03-13] MEDS ORDERED: BUPIVACAINE (PF) 0.25% 30 ML VIAL SQ ONE (11:49)
[2020-03-13] MEDS ORDERED: ROCURONIUM 10 MG/ML (10 ML VIAL) IV ONE (11:53)
[2020-03-13] MEDS ORDERED: fentaNYL (PF) 50 MCG/ML 2 ML AMP ONE (11:53)
[2020-03-13] MEDS ORDERED: MIDAZOLAM 2 MG/2 ML VIAL ONE (11:53)
[2020-03-13] MEDS ORDERED: SUCCINYLCHOLINE CHLORIDE 100 MG/5 ML SYR IV ONE (11:53)
[2020-03-13] MEDS ORDERED: LIDOCAINE 1% INJ 10MG/ML (20 ML MDV) ONE (11:53)
[2020-03-13] MEDS ORDERED: PROPOFOL 10 MG/ML 20 ML VIAL IV ONE (11:53)
--- NOTE | 2020-03-13 12:40 | P.OP ---
Date of Procedure: 03/13/20 Preoperative Diagnosis: Cholecystitis Postoperative Diagnosis: Cholecystitis Procedure(s) Performed: Laparoscopic cholecystectomy Anesthesia: ANASTACIA Surgeon: Eddie Mata Estimated Blood Loss (ml): 5 Pathology: other (Gallbladder) Condition: stable Disposition: PACU Description of Procedure: The patient was placed on the operating table. The patient received a general endotracheal tube anesthesia. The patients abdomen was prepped and draped in the usual sterile fashion. Through an infraumbilical stab incision, the fascia of the anterior abdominal wall was grasped with a pair of Kochers and then the Veress needle was placed in the peritoneal cavity. Position of the Veress needle was confirmed with positive drop test. The abdomen was then insufflated. After adequate insufflation, the 10 mm trocar was placed in the peritoneal cavity. Following this the laparoscope was placed in the peritoneal cavity. The patient was placed in the head-up, right side up position and then a 5 mm trocar was placed in the right lateral and right subcostal position under direct visualization. A 8 mm trocar was placed in the epigastric position. The gallbladder was grasped in the fundus and infundibulum. Traction on the gallbladder was placed in the lateral and the cephalad positions. The triangle of Calot was visualized.. The cystic duct was bluntly dissected until the union of the cystic duct and common bile duct was seen. A critical view of safety was achieved. The cystic duct was then divided and sealed with the Harmonic scissors. A PDS Endoloop was then placed throughout the cystic duct stump. The cystic artery divided and sealed with the Harmonic scissors. The gallbladder was then removed from the liver bed using Harmonic scissors. The gallbladder was then extracted through the epigastric port site. Operative field was checked for any bleeding spots and Harmonic scissors was used to coagulate the liver bed. The abdomen was irrigated. The trocars were removed. The skin was closed using interrupted 3-0 Vicryl suture. Dermabond dressing were applied. The patient tolerated the procedure well.
[2020-03-13 13:00] VITALS: TEMP 98.1
[2020-03-13 13:14] VITALS: RESP 16
[2020-03-13] MEDS: HYDROmorphone 0.5 MG/0.5 ML SYRINGE IVP ONE ×3 (13:19→13:45)
[2020-03-13 13:53] LABS: Glucose,Whole Blood 278 mg/dL (75-99)
[2020-03-13] MEDS ORDERED: INSULIN ASPART (NovoLOG) 100 UNIT/ML VIAL SQ ONE (13:55)
[2020-03-13 15:44] VITALS: BP 109/76; PULSE 76
== END 2020-03-13 15:56 | disposition home or self-care (01) ==
LOC: OR 10:04
PROVIDERS: ATTEND Surgery
DX: K81.1 Chronic cholecystitis (principal); K82.8 Other specified diseases of gallbladder; K21.9 Gastro-esophageal reflux disease without esophagitis; E11.9 Type 2 diabetes mellitus without complications; E07.9 Disorder of thyroid, unspecified; J45.909 Unspecified asthma, uncomplicated; I83.90 Asymptomatic varicose veins of unspecified lower extremity; Z98.890 Other specified postprocedural states; Z79.84 Long term (current) use of oral hypoglycemic drugs; Z79.890 Hormone replacement therapy; Z79.51 Long term (current) use of inhaled steroids; Z79.899 Other long term (current) drug therapy; Z82.49 Family history of ischemic heart disease and other diseases of the circulatory system
CPT/HCPCS: 81025; 88304; 47562; J2250; J1644; J1100; J0690; J2405; J2001; J3010; J0330; J2704; J1170

== ENCOUNTER 2020-07-06 16:50 | Emergency (ER) | payer OTHER ==
[2020-07-06 17:04] VITALS: RESP 18
[2020-07-06] MEDS ORDERED: ACETAMINOPHEN TAB 325 MG TAB PO STA (17:46)
--- NOTE | 2020-07-06 18:26 | ED ---
URI HPI - General Chief Complaint: Upper Respiratory Infection Stated Complaint: Cough, chills Time Seen by Provider: 07/06/20 17:39 Source: patient Mode of arrival: ambulatory Limitations: no limitations - History of Present Illness Initial Comments: 50-year-old female patient presents to the emergency department today for evaluation of cough, congestion, body aches. She is also reporting headache. Symptoms started on Friday. States she has been chilled but denies any known fever. His nausea vomiting. Denies any diarrhea. States she needs a COVID rest before they will allow her to return to work. She does have a history of asthma and no other medical problems. Denies history of smoking. Patient denies any recent rash, abdominal pain, constipation, back pain, numbness, tingling, dizziness, weakness, hematuria, dysuria, urinary urgency, urinary frequency, headache, visual changes, or any other complaints. - Related Data Home Medications Medication Instructions Recorded Confirmed Cetirizine HCl [Zyrtec] 10 mg PO DAILY 09/06/14 03/10/20 Montelukast [Singulair] 10 mg PO HS 09/06/14 03/10/20 lisinopriL [Zestril] 10 mg PO QAM 09/06/14 03/10/20 Budesonide/Formoterol Fumarate 2 puff INHALATION RT-BID 12/30/17 03/10/20 [Symbicort 160-4.5 Mcg Inhaler] Naproxen [Naprosyn] 500 mg PO Q12HR PRN 12/30/17 03/10/20 Sertraline [Zoloft] 100 mg PO BID 03/05/18 03/10/20 Omeprazole 20 mg PO QAM 05/05/19 03/10/20 traMADol HCl [Ultram] 50 - 100 mg PO TID PRN 05/05/19 03/10/20 Dulaglutide [Trulicity] 1.5 mg SQ TU 03/03/20 03/10/20 Gabapentin 600 mg PO TID 03/03/20 03/10/20 Levothyroxine Sodium [Euthyrox] 50 mcg PO QAM 03/03/20 03/10/20 Tiotropium [place] [Spiriva 1 puff INHALATION QAM 03/03/20 03/10/20 Respimat] glipiZIDE XL [Glucotrol Xl] 5 mg PO DAILY 03/10/20 03/10/20 Previous Rx's Medication Instructions Recorded Acetaminophen Tab [Tylenol] 650 mg PO Q6H #30 tab 03/13/20 Docusate [Colace] 100 mg PO BID #20 capsule 03/13/20 Ibuprofen [Motrin] 600 mg PO Q6HR PRN #40 tab 03/13/20 oxyCODONE HCL [OxyIR] 5 mg PO Q4H PRN 3 Days #18 tab 03/13/20 Allergies Allergy/AdvReac Type Severity Reaction Status Date / Time No Known Allergies Allergy Verified 07/06/20 17:04 Review of Systems ROS Statement: Those systems with pertinent positive or pertinent negative responses have been documented in the HPI. ROS Other: All systems not noted in ROS Statement are negative. Past Medical History Past Medical History: Asthma, Chest Pain / Angina, Diabetes Mellitus, GERD/Reflux, Hypertension, Thyroid Disorder Additional Past Medical History / Comment(s): VARICOSE VEINS , HIATAL HERNIA History of Any Multi-Drug Resistant Organisms: None Reported Past Surgical History: Hernia Repair Additional Past Surgical History / Comment(s): EGD 11/18/14 Past Anesthesia/Blood Transfusion Reactions: No Reported Reaction Additional Past Anesthesia/Blood Transfusion Reaction / Comment(s): Pt has never had surgery. Past Psychological History: Depression Smoking Status: Never smoker Past Alcohol Use History: None Reported Past Drug Use History: None Reported - Past Family History Father Family Medical History: Myocardial Infarction ([place]) Additional Family Medical History / Comment(s): Father of "massive" [place] in his early 60's. Mother Family Medical History: No Reported History Additional Family Medical History / Comment(s): Mother is still living. General Exam Limitations: no limitations General appearance: alert, in no apparent distress, other (Physical well- developed, well-nourished adult female patient in no acute distress. Vital signs upon presentation are temperature 97.9F, pulse 100, respirations 18, blood pressure 140/67, pulse ox 97% on room air.) Eye exam: Present: normal appearance, PERRL, EOMI. Absent: scleral icterus, conjunctival injection, periorbital swelling ENT exam: Present: normal exam, normal oropharynx, mucous membranes moist Respiratory exam: Present: normal lung sounds bilaterally. Absent: respiratory distress, wheezes, rales, rhonchi, stridor Cardiovascular Exam: Present: regular rate, normal rhythm, normal heart sounds. Absent: systolic murmur, diastolic murmur, rubs, gallop, clicks GI/Abdominal exam: Present: soft, normal bowel sounds. Absent: distended, tenderness, guarding, rebound, rigid Neurological exam: Present: alert, oriented X3, CN II-XII intact Psychiatric exam: Present: normal affect, normal mood Skin exam: Present: warm, dry, intact, normal color. Absent: rash Course Vital Signs 07/06/20 07/06/20 17:01 20:41 Temperature 97.9 F 96.0 F L Pulse Rate 100 96 Respiratory 18 18 Rate Blood Pressure 140/67 127/87 O2 Sat by Pulse 97 95 Oximetry Medical Decision Making - Medical Decision Making 50-year-old female patient presents to the emergency department today for evaluation of cough, congestion, headaches, chills. Physical examination did reveal coarse lung sounds on the left. She is exhibiting normal vital signs. Chest x-ray was obtained and shows interstitial radiographic pattern. She did test positive for COVID-19. She does meet qualifications to receive infusion of bamlanivimab. Did discuss risks versus benefits of this infusion, she agrees to receive the medication. This will be infused, she'll be monitored for an hour to be discharged home to follow-up with her primary care physician for recheck in 1-2 days. Return parameters discussed in detail. She verbalizes understanding and agrees with this plan. Case discussed with my attending Dr. Ordonez. - Lab Data Lab Results 07/06/20 Range/Units 17:07 Coronavirus (PCR) Detected A (Not Detectd) - Radiology Data Radiology results: report reviewed, image reviewed When he x-ray of the chest was obtained. Report reason that entirety. Impression by Dr. Garrett Bravo shows diffuse mild interstitial radiographic pattern. Disposition Clinical Impression: COVID-19 Disposition: HOME SELF-CARE Condition: Good Instructions (If sedation given, give patient instructions): Coronavirus Disease 2019 (COVID-19) Additional Instructions: Increase fluids. Rest. Follow-up with the primary care physician for recheck in 1-2 days. Return to the emergency department for any new, worsening, or concerning symptoms. Is patient prescribed a controlled substance at d/c from ED?: No Referrals: Nestor French MD [Primary Care Provider] - 1-2 days
[2020-07-06] MEDS ORDERED: SODIUM CHLORIDE 0.9% 50 ML IVPB ONE (18:45)
[2020-07-06] MEDS ORDERED: BAMLANIVIMAB (EUA) 700 MG, ETESEVIMAB (EUA) 1,400 MG in SODIUM CHLORIDE 0.9% 50 ML IVPB ONE (18:45)
--- NOTE | 2020-07-06 19:08 | XR ---
EXAMINATION: XR chest 1V DATE AND TIME: 07/06/2020 6:22 PM CLINICAL INDICATION: PHH; Cough; chest pain TECHNIQUE: Single frontal view COMPARISON: 03/03/2020 FINDINGS: There is mild obscuration of the pulmonary vasculature bilaterally and symmetrically by a fine reticu lar pattern of increased attenuation suggesting interstitial phase pulmonary edema. The differential diagnosis for this radiographic pattern includes an interstitial pattern of pneumonitis. The lungs are well expanded bilaterally, and there is no mediastinal or diaphragmatic silhouetting. The pleural spaces are negative. The cardiac silhouette is not enlarged. The remainder of the mediastinal silhouette is unremarkable. The skeletal structures and soft tissues are negative for acute findings. IMPRESSION: Diffuse mild interstitial radiographic pattern.
[2020-07-06 20:43] VITALS: BP 127/87; PULSE 96; TEMP 96
== END 2020-07-06 20:41 | disposition home or self-care (01) ==
LOC: EC 16:50
DX: U07.1 COVID-19 (principal); J45.909 Unspecified asthma, uncomplicated; E11.9 Type 2 diabetes mellitus without complications; I10 Essential (primary) hypertension; K21.9 Gastro-esophageal reflux disease without esophagitis; F32.9 Major depressive disorder, single episode, unspecified
CPT/HCPCS: 87635; 71045; 99284; 96365; Q0245

== ENCOUNTER 2021-01-12 12:15 | Day surgery (SDC) | payer OTHER ==
[2021-01-10 12:35] VITALS: BMI 42.0
[~2021-01-12 12:15] MED LIST changes: -ACETAMINOPHEN TAB 500 MG TAB PO PRN; +DEXAMETHASONE SOD PHOSPHATE 4 MG/ML 1 ML VIAL IV ONE; -HEPARIN SODIUM,PORCINE 5,000 UNIT/ML 1 ML VIAL SQ PRN; +HYDROmorphone 0.5 MG/0.5 ML SYRINGE IVP PRN; +LACTATED RINGERS 1,000 ML IV SCH; +ONDANSETRON 4 MG/2 ML VIAL IVP ONE; +Pre Op ABX Message 1 EACH MISC MISCELLANE ONE
[2021-01-12 13:03] VITALS: RESP 16; TEMP 97.4
[2021-01-12 13:17] LABS: Glucose,Whole Blood 129 mg/dL (75-99)
[2021-01-12] MEDS ORDERED: LIDOCAINE 1% (10MG/ML) FOR IV START INTRADERMA ONE (13:17)
[2021-01-12] MEDS ORDERED: MIDAZOLAM 2 MG/2 ML VIAL ONE (14:35)
[2021-01-12] MEDS ORDERED: KETAMINE 10 MG/ML 20 ML VIAL ONE (14:35)
[2021-01-12] MEDS ORDERED: fentaNYL (PF) 50 MCG/ML 2 ML AMP ONE (14:35)
[2021-01-12] MEDS ORDERED: PROPOFOL 10 MG/ML 20 ML VIAL IV ONE (14:35)
[2021-01-12] MEDS ORDERED: LIDOCAINE 2% INJ 20 MG/ML SQ ONE (14:49)
--- NOTE | 2021-01-12 15:27 | P.OP ---
Date of Procedure: 01/12/21 Procedure(s) Performed: PREOPERATIVE DIAGNOSES: 1. Left wrist carpal tunnel syndrome POSTOPERATIVE DIAGNOSES: 1. Left wrist carpal tunnel syndrome PROCEDURES PERFORMED: 1. Left wrist carpal tunnel release ANESTHESIA: Local with IV sedation NETWORK PROGRAM MANAGER: None COMPLICATIONS: None ESTIMATED BLOOD LOSS: Less than 1 mL DISPOSITION: To post-anesthesia care unit INDICATIONS: Libia is a 50-year-old female who has had EMG/nerve conduction study confirmed carpal tunnel syndrome with unrelenting symptoms. She desires to have a carpal tunnel release as discussed in office. I discussed the steps of the surgery as well as potential risks and complications as being inclusive of, but not limited to: Bleeding, infection, scarring, discomfort, blood vessel and/or nerve damage, need for further surgery, stiffness, tendon injury, persistence or recurrence of symptoms and other risks. The patient is aware of these risks and wishes to proceed with surgery. The consent form has been signed. PROCEDURE: After appropriate consent was obtained, the patient was taken to the operating room placed in the supine position. Anesthesia was initiated, and after confirmation of adequate anesthesia, the patient was carefully positioned. Care was taken to make sure that all pressure points were adequately padded. Timeout was called, confirming patient identity, side, procedure, and no antibiotics were administered. Limb was exsanguinated with an Esmarch bandage and the tourniquet was inflated to 250 mmHg. Total tourniquet time for the case was approximately 9 minutes. Incision was created in line with the radial border of the fourth ray at the base of the palm. Incision was carried down through skin and then lightly spread down to palmar fascia. Retractors were placed. Excellent visualization of the palmar fascia was accomplished and the palmar fascia was incised to reveal the underlying transverse carpal ligament. The ligament was incised sharply using a knife and released in 1 mm increments both proximally and distally to the extent of the wound. Further fascial releases were performed in both directions using gentle push technique with curved small Metzenbaum scissors. Full release was confirmed with visual inspection and instrument palpation. The underlying structures of the carpal tunnel were noted to be fairly normal without evidence of significant tenosynovitis. Thorough irrigation was performed using normal saline. Tourniquet was deflated and combination of bipolar electrocautery and pressure was used for hemostasis. Closure was performed using vertical mattress 4-0 nylon suture. Sterile dressing was applied and further pressure was held over the wound for 3 minutes for additional hemostasis. Vascular status remained good with less than 2 second capillary refill. Patient tolerated the procedure well and taken to recovery room in stable condition. Counts were correct.
[2021-01-12 15:45] VITALS: BP 120/77; PULSE 89
[2021-01-12] MEDS ORDERED: ACETAMINOPHEN TAB 500 MG TAB ONE (15:47)
[2021-01-12] MEDS ORDERED: ACETAMINOPHEN TAB 500 MG TAB PO ONE (15:49)
== END 2021-01-12 16:29 | disposition home or self-care (01) ==
LOC: OR 12:15
PROVIDERS: ATTEND Orthopaedic Surgery
DX: G56.02 Carpal tunnel syndrome, left upper limb (principal); E03.9 Hypothyroidism, unspecified; I10 Essential (primary) hypertension; E11.9 Type 2 diabetes mellitus without complications; F32.9 Major depressive disorder, single episode, unspecified; R51.9 Headache, unspecified; Z79.899 Other long term (current) drug therapy; Z79.84 Long term (current) use of oral hypoglycemic drugs; G56.22 Lesion of ulnar nerve, left upper limb
CPT/HCPCS: 81025; 64721; J2001; J2250; J1100; J2405; J3010; J2704

== ENCOUNTER → 2021-01-31 | Outpatient (CLI) | payer OTHER ==
--- NOTE | 2021-01-31 14:04 | FL ---
EXAMINATION TYPE: FL barium swallow w video DATE OF EXAM: 01/31/2021 CLINICAL HISTORY: 50-year-old female R1 3.10 Dysphagia. Prior hiatal hernia repair with sensation of food sticking in throat. TECHNIQUE: Deglutition study is performed utilizing thin liquid barium, honey and nectar thick liqui d barium, barium thick applesauce, and barium coated cracker. COMPARISON: None. Total fluoroscopy time: 1 minute 22 seconds. Total images: None. Real-time fluoroscopy support was provided to speech pathology. FINDINGS: The oral and pharyngeal phases show satisfactory initiation and propagation with all modalities teste d. Normal mastication is seen with solid modalities tested. There is no evidence of penetration or aspiration with any modality tested. No significant pharyngeal residue was appreciated. AP fluoroscopy of the thoracic esophagus is also obtained and shows delay in clearance along the prox imal third esophagus, and occasional episode of intraesophageal reflux, and also delay in clearance a david the diaphragm. Findings may reflect some degree of esophageal dysmotility. IMPRESSION: 1. No penetration or aspiration. 2. There may be some underlying esophageal dysmotility. A conventional esophagram can further evaluat e if clinically indicated. 3. Please refer to speech therapist notes for further details if necessary.
== END | disposition home or self-care (01) ==
LOC: RADUSWWP 11:10
PROVIDERS: ATTEND Psychiatry & Neurology Neurology
DX: R13.10 Dysphagia, unspecified (principal)
CPT/HCPCS: 74230

== ENCOUNTER → 2021-08-13 | Outpatient (CLI) | payer OTHER ==
--- NOTE | 2021-08-13 16:16 | MR ---
EXAMINATION TYPE: MR lumbar spine wo con DATE OF EXAM: 08/13/2021 COMPARISON: Plain x-ray 07/25/2021 HISTORY: Back Pain x4-5 years TECHNIQUE: Multiplanar, multisequence images of the lumbar spine were acquired without IV contrast. T12-L1 shows loss of disc height, posterior extension endplate disc complex causing mild anterior mas s effect L1-L2: Normal disc appearance without desiccation. No herniation, protrusion or disc bulging. No ca nal stenosis is present. Foramina are patent bilaterally. L2-L3: Normal disc appearance without desiccation. No herniation, protrusion or disc bulging. No ca nal stenosis is present. Foramina are patent bilaterally. L3-L4: Normal disc appearance without desiccation. No herniation, protrusion or disc bulging. No ca nal stenosis is present. Foramina are patent bilaterally. L4-L5: Facet arthropathy with hypertrophy ligamentum flavum causes posterior mass effect on the theca l sac. No evident disc herniation. No neural foraminal encroachment. L5-S1: Normal disc appearance without desiccation. No herniation, protrusion or disc bulging. No ca nal stenosis is present. Foramina are remarkable for some encroachment on the inferior aspect due to circumferential extension of disc material anterolisthesis. Lumbar segments are intact. No paraspinal masses are identified. Conus medullaris has a normal appe arance, lipoma the filum terminale is suspected. Lumbar vertebral bodies show preserved height. There is multilevel spondylosis with endplate discogenic marrow signal change. No significant spinal steno sis. There is a slight spinal curvature. Bilateral spondylolysis suspected at L5. Anterolisthesis gra de 1 L5-S1. Retroaortic left renal vein noted incidentally. IMPRESSION: Spondylolysis, spinal listhesis, degenerative disc disease and facet arthropathy as described.
--- NOTE | 2021-08-13 20:08 | CT ---
EXAMINATION TYPE: CT lumbar spine wo con DATE OF EXAM: 08/13/2021 6:07 PM COMPARISON: X-ray dated 07/25/2021 HISTORY: Low back pain CT DLP: 884 mGycm Automated exposure control for dose reduction was used. Technique: Unenhanced CT of the lumbar spine was performed. Bone and soft tissue window settings are submitted as well as coronal and sagittal reconstructions. FINDINGS: Artifactual images. Bilateral L5 pars interarticularis break without significant anterolisthesis or r etrolisthesis. No definite lumbar vertebral body collapse or acute displaced fracture. Degenerative c hanges at T12-L1 level with opposing endplate osteophytosis and degenerative disc. T12-L1: Degenerative changes as described above with focal left extraforaminal disc protrusion, causi ng no significant central spinal canal stenosis or significant neuroforaminal stenosis. L1-L2: No significant disc disease, central spinal canal stenosis or neuroforaminal stenosis. L2-L3: Mild diffuse posterior disc bulge, causing no significant central spinal canal stenosis or jacquelyn roforaminal stenosis. L3-L4: Diffuse posterior disc bulge, causing no significant central spinal canal stenosis or neurofor aminal stenosis. L4-L5: Mild diffuse posterior disc bulge, causing no significant central spinal canal stenosis or jacquelyn roforaminal stenosis. L5-S1: Diffuse posterior disc bulge, causing no significant central spinal canal stenosis or neurofor aminal stenosis. Questionable focal exophytic lesion versus artifact at the lower pole of the left kidney. No paraspin al lesion. IMPRESSION: Artifactual images. Bilateral L5 pars interarticularis break as described above. Multilevel mild lumb ar DDD without significant central spinal canal stenosis or neuroforaminal stenosis. Recommend clinic al correlation and correlation with MRI results. Other findings as described above.
== END | disposition home or self-care (01) ==
LOC: RADMRIMAIN 14:56
PROVIDERS: ATTEND Orthopaedic Surgery
DX: M47.816 Spondylosis without myelopathy or radiculopathy, lumbar region (principal); M51.36 Other intervertebral disc degeneration, lumbar region; M43.16 Spondylolisthesis, lumbar region
CPT/HCPCS: 72131; 72148

== ENCOUNTER → 2021-10-10 | Outpatient (CLI) | payer OTHER ==
[2021-10-10 14:37] VITALS: BP 133/77; PULSE 78; RESP 18; TEMP 98.2
--- NOTE | 2021-10-10 15:16 | P.PAINPG ---
PQRS Measure Charge Sheet Comment: HISTORY OF PRESENT ILLNESS: 51 yr old female as a referral from Dr. Vasquez presents today with severe and chronic LBP secondary to DDD, facet arthropathy and L5-S1 anterolisthesis for evaluation. Pt states her pain level is currently at 8/10 in intensity, waxes & wanes for the last 3-4 yrs, constant, LBP, L & R of midline without radiation of pain. Pain is provoked with bending, lifting and carrying. Pain is palliated with PT integrated with massage in 2019, home based exercise regimen, medications (Tramadol, Naproxen), repositioning and rest. PMH: Asthma, Angina, NIDDM, GERD, HTN, Hypothyroidism PSH: L CTR, Hiatal Hernia Repair, EGD SH: Negative x 3 FH: Mo- No Reported History. Father- [facility]/ in 1960s. All: NKDA Meds: See list REVIEW OF ORGAN SYSTEMS: CONSTITUTIONAL: No fevers or chills. No recent weight loss. NEUROLOGICAL: + numbness and tingling along the distal extremities. No seizure disorders or headaches. MUSCULOSKELETAL: + pain PSYCHIATRIC: Denies current depression or suicidal thoughts. Physical Examinations : Constitutional : Cooperative , not in acute distress . Neurologic : Cranial nerve II to XII intact. No focal neurological deficits. Psychiatric : alert & oriented x 3. Matching mood & appropriate affect. Judgment & insight intact. Musculoskeletal : Cervical Spine Motor strength in the deltoid and biceps: Normal right side. Normal Left side Motor strength biceps and the wrist extensors: Normal right side . Normal left side Motor strength in the triceps muscle: Normal right side. Normal left side Deep tendon reflexes: Normal at the biceps. Normal at Brachioradialis. Normal at triceps Vertebral body tenderness to deep palpation over Cervical facet loading test: positive bilaterally Spurling test: positive bilaterally Neck distraction test: positive bilaterally Анна sign: positive bilaterally Lumbar spine Motor strength lower extremities ,thigh and legs 5/5 Right side , 5/5 Left side Deep tendon reflexes : Normal Knee Jerk. Normal Ankle Jerk Vertebral body tenderness over L5 Lumbar facet Loading Test: positive Right / positive Left Range of motion of the lumbar spine Flexion 30 degrees, extension 10 degrees Straight Leg Raise test: Left/ Right positive at degree Marley test: positive right / positive left. Severe tenderness over the Sacroiliac joint on the Right / Left sides Gaenslen test: positive bilaterally Seated flexion test: positive bilaterally. Sacral spine : Severe tenderness over the Sacroiliac joint: right side / left side Range of motion: Flexion of the lumbar spine <60 degrees Range of motion: Extension of the lumbar spine <20 degrees Gaenslen's Test positive Reid's Test positive Marley test: positive right side / left side Thigh Thrust Test Sacral Thrust Test Imaging: MRI without contrast of the lumbar spine form 08/13/21 reviewed Assessment/ Plan : Lumbar Anterolisthesis Recommendation of LESI L5-S1. May need a series of injections, up to 3 within a 6 mo period, for optimal pain relief. Risks, benefits of procedure discussed and patient verbalized understanding. Denies aspirin or anti- coagulant use and admits to a medical history of diabetes. Protocol for discontinuation/ continuation of medications sandra procedure discussed. All questions answered. I have spent greater than 30 minutes on patient care today. Dr Orta was available by phone for the evaluation of this patient. The time was used to review the medical records including relevant urine studies and Prescription history (MAPs), review of the available imaging, evaluation and examination of the patient, coordination of care with the medical staff and if applicable referring physicians, as well as creation of the medical record PQRS Narrative: Smoking Status Never smoker Home Medications: Ambulatory Orders Cetirizine HCl [Zyrtec] 10 mg PO HS 09/06/14 lisinopriL [Zestril] 10 mg PO QAM 09/06/14 Budesonide/Formoterol Fumarate [Symbicort 160-4.5 Mcg Inhaler] 2 puff INHALATION RT-BID 12/30/17 Naproxen [Naprosyn] 500 mg PO Q12HR PRN 12/30/17 Sertraline [Zoloft] 100 mg PO BID 03/05/18 Omeprazole 20 mg PO QAM 05/05/19 traMADol HCl [Ultram] 50 mg PO BID 05/05/19 Dulaglutide [Trulicity] 1.5 mg SQ TH 03/03/20 Levothyroxine Sodium [Euthyrox] 50 mcg PO QAM 03/03/20 Tiotropium [place] [Spiriva Respimat] 1 puff INHALATION QAM 03/03/20 Docusate [Colace] 100 mg PO BID #20 capsule 03/13/20 Ibuprofen [Motrin] 600 mg PO Q6HR PRN #40 tab 03/13/20 Acetaminophen Tab [Tylenol] 650 mg PO Q6H PRN 01/10/21 Empagliflozin/Linagliptin [Glyxambi 10 mg-5 mg Tablet] 1 tab PO DAILY 01/10/21 Metoprolol Tartrate [Lopressor] 25 mg PO BID 01/10/21 Montelukast [Singulair] 10 mg PO DAILY 01/10/21 Pregabalin [Lyrica] 75 mg PO BID 01/10/21 glipiZIDE [Glucotrol] 5 mg PO [id number]-[id number] 01/10/21 Controlled Substance Measures - Controlled Substance Measures Is patient prescribed a controlled substance at discharge?: No
== END ==
LOC: PNWHC3 14:15
PROVIDERS: ATTEND Specialist
DX: M51.16 Intervertebral disc disorders with radiculopathy, lumbar region (principal); M48.061 Spinal stenosis, lumbar region without neurogenic claudication; M53.86 Other specified dorsopathies, lumbar region; J45.909 Unspecified asthma, uncomplicated; E11.9 Type 2 diabetes mellitus without complications; I10 Essential (primary) hypertension; E03.9 Hypothyroidism, unspecified
CPT/HCPCS: 99211

== ENCOUNTER 2021-12-25 13:03 | Day surgery (SDC) | payer OTHER ==
[2021-12-24 12:15] VITALS: BMI 43.9
[~2021-12-25 13:03] MED LIST changes: -DEXAMETHASONE SOD PHOSPHATE 4 MG/ML 1 ML VIAL IV ONE; -HYDROmorphone 0.5 MG/0.5 ML SYRINGE IVP PRN; +LIDOCAINE 1% (10MG/ML) FOR IV START INTRADERMA PRN; -ONDANSETRON 4 MG/2 ML VIAL IVP ONE; -Pre Op ABX Message 1 EACH MISC MISCELLANE ONE
[2021-12-25 13:22] VITALS: TEMP 96.9
[2021-12-25 13:27] LABS: Glucose,Whole Blood 119 mg/dL (70-110)
[2021-12-25] MEDS ORDERED: methylPREDNISolone ACETATE 40 MG/ML 1 ML VIAL ONE (13:49)
[2021-12-25] MEDS ORDERED: MIDAZOLAM 2 MG/2 ML VIAL ONE (13:49)
[2021-12-25] MEDS ORDERED: IOPAMIDOL M200 10 ML VIAL ONE (13:49)
[2021-12-25] MEDS ORDERED: fentaNYL (PF) 50 MCG/ML 2 ML AMP ONE (13:49)
--- NOTE | 2021-12-25 14:07 | P.PCN ---
Date of Procedure: 12/25/21 Procedure(s) Performed: PREOPERATIVE DIAGNOSIS: 1- Lumbar Degenerative Disc Diseases 2-Lumbar spondylosis with Facet arthropathy without myelopathy. POSTOPERATIVE DIAGNOSIS: Same as preop diagnosis. PROCEDURE 1. Lumbar epidural steroid injection under fluoroscopic guidance at the L5-S1 level. (Fluoroscopy imaging was available in radiology department) 2. Lumbar epidurogram. ANESTHESIA: moderate sedation with intravenous Versed 2 mg ,and fentanyle 100 Mcg Sedation start time : 1353 Sedation end time : 1404 EBL: Minimal PROCEDURE INDICATION: The patient with low back pain and radiculitis symptoms unresponsive to conservative treatment. Fluoroscopy was used to optimize visualization of the needle placement and to maximize safety. PROCEDURE DESCRIPTION / TECHNIQUE: The patient was seen and identified in the preoperative area. Risks, benefits, complications including but not limited to infections ,bleeding ,allergic reaction to the medications ,nerve damage and not complete pain releife , and al ternatives were discussed with the patient. The patient agreed to proceed with the procedure and signed the consent. IV was started, and vital signs were stable. Patient was taken to the OR and time out was completed. The patient was placed in the prone position on procedure table and a pillow was placed under the abdomen to reduce lumbar lordosis. The lumbosacral area was prepped and draped in the usual sterile fashion.ere closely monitored during the procedure. Conscious sedation was used during the procedure to decrease patients anxiety. Vital signs was monitered during the entire procedure. Using anterior-posterior fluoroscopy, the L5-S1 interlaminar space was identified and the skin over this site was marked and then infiltrated with 1% lidocaine subcutaneously. Subsequently, a 20-gauge Tuohy epidural needle was inserted and advanced toward the epidural space using the ``Loss of resistance technique and guided by AP and lateral fluoroscopy. The correct needle position in the epidural space was verified with the injection of 2 mL of the water soluble contrast dye Isovue 200 contrast and observing an excellent epidurogram with the epidural spread of the dye, after negative aspiration for blood and CSF and in the absence of paresthesias. Again after negative aspiration, a 6 ml mixture containing 40 mg of Depo-medrol ( Preservetive Free ), and 2 ml of preservative free Normal Saline, and 2 ml of preservative free lidocaine 1% solution was injected and a washout of epidurogram was seen. Needle was withdrawn intact, skin was cleansed, and bandages were applied. COMPLICATIONS: None DISPOSITION / PLANS: The patient was placed in a supine position and transferred to the recovery area in a stable condition for observation. There was no evidence of lower extremity motor or sensory deficit after the procedure. Patient was discharged from the recovery room after meeting discharge criteria. Home discharge instructions were given to the patient by the staff. The patient was reexamined prior to discharge. The patient will schedule a follow up in the clinic in 2-4 weeks.
[2021-12-25] MEDS ORDERED: IV FLUID CONTINUATION 1,000 ML IV ONE (14:12)
[2021-12-25 14:15] VITALS: BP 136/89
--- NOTE | 2021-12-25 14:15 | FL ---
EXAMINATION TYPE: FL guided pain mgmt statistic DATE OF EXAM: 12/25/2021 HISTORY: Fluoroscopy time 2 seconds of fluoroscopy provided. IMPRESSION: 1. Fluoroscopy time.
[2021-12-25 14:28] VITALS: PULSE 70; RESP 16
== END 2021-12-25 14:56 | disposition home or self-care (01) ==
LOC: ORPAIN 13:03
PROVIDERS: ATTEND Specialist
DX: M51.16 Intervertebral disc disorders with radiculopathy, lumbar region (principal); M47.26 Other spondylosis with radiculopathy, lumbar region
CPT/HCPCS: 81025; 62323; 99152; J2250; J1030; J3010; Q9966

== ENCOUNTER 2022-01-10 12:13 | Day surgery (SDC) | payer OTHER ==
[2022-01-10] MEDS ORDERED: LACTATED RINGERS 1,000 ML IV SCH (12:30)
[2022-01-10 13:06] VITALS: RESP 16; TEMP 97.2
[2022-01-10] MEDS ORDERED: LIDOCAINE 1% (10MG/ML) FOR IV START INTRADERMA ONE (13:08)
[2022-01-10 13:16] LABS: Glucose,Whole Blood 95 mg/dL (70-110)
[2022-01-10] MEDS ORDERED: MIDAZOLAM 2 MG/2 ML VIAL ONE (13:20)
[2022-01-10] MEDS ORDERED: fentaNYL (PF) 50 MCG/ML 2 ML AMP ONE (13:20)
[2022-01-10] MEDS ORDERED: IOPAMIDOL M200 10 ML VIAL ONE (13:20)
[2022-01-10] MEDS ORDERED: methylPREDNISolone ACETATE 40 MG/ML 1 ML VIAL ONE (13:20)
--- NOTE | 2022-01-10 13:31 | P.PCN ---
Date of Procedure: 01/10/22 Description of Procedure: 1. L5-S1 Epidural steroid injection under fluoroscopic guidance # 2/3 , 2. Lumbar epidurogram PREOPERATIVE DIAGNOSIS: Lumbar degenerative disc disease, and Lumbar radiculopathy. POSTOPERATIVE DIAGNOSIS: Lumbar degenerative disc disease, and Lumbar radiculopathy. SURGEON: Reji Chaparro ANESTHESIA: Local with 1% lidocaine, and IV sedation: Versed 2 mg , and fentanyl 100 g Sedation supervision start time: 1322 Sedation supervision ended time: 1329 EBL: None. Specimen removed: None Fluoroscopic image: saved to electronic medical records PROCEDURE INDICATION: The patient had history of Lumbar degenerative disc disease and Lumbar radiculopathy. Failed to conservative therapy. Presented for epidural steroid injection. PROCEDURE DESCRIPTION: The patient was seen and identified in the preoperative area. Risks, benefits, complications, and alternatives were discussed with the patient. The patient agreed to proceed with the procedure and signed the consent. IV was started, and vital signs were stable. Patient was taken to the procedure area, and time out was completed. The patient was placed in the prone position on procedure table and a pillow was placed under the abdomen to reduce lumbar lordosis. The lumbosacral area was prepped and draped in the usual sterile fashion. Critical pause was taken. Vital signs were closely monitored during the procedure. Using anterior-posterior fluoroscopy, the L5-S1 interlaminar space was identified, and skin and deeper tissues were localized with 1% lidocaine. Using anterior-posterior fluoroscopy, lateral fluoroscopy, and [id number] technique, a 18 gauge 6 Tuohy epidural needle entered the epidural space. After negative aspiration of CSF and blood with no paresthesias, 2 ml of [id number] contrast dye was injected and an excellent epidurogram was seen. Again after negative aspiration of CSF and blood with no paresthesias, 10 mL of block solution was injected into the epidural space. Block solution contained 40 mg of Depo-Medrol, and 9 mL of preservative-free normal saline. Needle was withdrawn intact, skin was cleansed, and bandages were applied. COMPLICATIONS: None. DISPOSITION / PLANS: The patient was placed in a supine position and transferred to the recovery area in a stable condition for observation. Patient was discharged from the recovery room after meeting discharge criteria. Home discharge instructions given to the patient by the staff. The patient was reexamined prior to discharge. The patient will schedule a follow up in the clinic in 4 weeks.
[2022-01-10] MEDS ORDERED: IV FLUID CONTINUATION 1,000 ML IV ONE (13:38)
--- NOTE | 2022-01-10 13:52 | FL ---
Fluoroscopy HISTORY: Pain 7 seconds fluoroscopy time supplied to the referring clinician. 2 intraoperative C-arm images docume nt the procedure. See dictated report from anesthesia.
[2022-01-10 14:16] VITALS: BP 124/80; PULSE 76
== END 2022-01-10 14:18 | disposition home or self-care (01) ==
LOC: ORPAIN 12:13
DX: M51.16 Intervertebral disc disorders with radiculopathy, lumbar region (principal); J45.909 Unspecified asthma, uncomplicated; M19.90 Unspecified osteoarthritis, unspecified site; K21.9 Gastro-esophageal reflux disease without esophagitis; G62.9 Polyneuropathy, unspecified; Z90.49 Acquired absence of other specified parts of digestive tract
CPT/HCPCS: 81025; 62323; J2250; J1030; J3010; Q9966

== ENCOUNTER → 2022-01-28 | Outpatient (CLI) | payer OTHER ==
[2022-01-28 14:33] VITALS: BP 139/83; PULSE 83; RESP 18
--- NOTE | 2022-01-28 15:12 | P.PAINPG ---
Objective - Vital Signs Vital signs: Vital Signs Temp Pulse 83 01/28/22 14:25 Resp 18 01/28/22 14:25 BP 139/83 01/28/22 14:25 Pulse Ox 94 L 01/28/22 14:25 FiO2 PQRS Measure Charge Sheet Mode of Arrival: Ambulatory Comment: A 51 yr old female with a history of severe and chronic low back pain secondary to lumbar degenerative disc diseases and lumbar spondylosis with facet arthropathy without myelopathy presents today for evaluation s/p LILLIANA L5-S1 #2. Pt stats she experienced 50% pain relief x 3 wks s/p procedure. Pain level is currently at 7/10 in intensity, constant, localized in the lower lumbar spine, achy in character w shooting towards the BLEs. Pain is provoked by . Pain is alleviated with medications, topicals, injections, PT in 2019, daily home exercise regimen as tolerated, massage therapy integrated with PT, repositioning and rest. Interventional pain procedures completed include LILLIANA L5-S1 x2 Patient is currently on Tramadol Neurontin Patient denies any side effects of the medication(s), denies excessive drowsiness or sleepiness, denies suicidal ideation and reports that the current pain medication is helping to control the pain and improve activities of daily living. Patient denies any motor or sensory deficits. Patient denies any fever or night sweats, denies any change in the bowel movements or urination. Physical Examination: -Constitutional: Cooperative. Not in acute distress . - Neurologic: Cranial nerve II to XII intact. No focal neurological deficits. - Psychatric: Alert & oriented x 3. Matching mood & appropriate affect. Judgment and insight intact. - Musculoskeletal: Cervical spine: Muscle bulk/ tone/ strength in the bilateral upper extremities normal Vertebral body tenderness to palpation over Spurling test positive Distraction test positive Facet loading test positive Thoracic spine Muscle bulk / tone/ strength in the bilateral paraspinal muscles normal Vertebral body tender to palpation over Facet loading test positive Lumbar spine: Motor bulk/ tone/ strength lower extremities , thigh and legs : 5/5 Deep tendon reflexes : Normal Knee Jerk. Normal Ankle Jerk . Vertebral body tenderness to palpation over L5 Lumbar Facet Loading Test positive Straight Leg Raise: positive at 30 degrees right side/ left side Gaenslen's Test positive Sacral spine : Severe tenderness over the Sacroiliac joint: right side / left side Range of motion: Flexion of the lumbar spine <60 degrees Range of motion: Extension of the lumbar spine <20 degrees Gaenslen's Test positive Reid's Test positive Marley test: positive right side / left side Thigh Thrust Test Sacral Thrust Test Assessment and plan: Chronic low back pain secondary to lumbar degenerative disc disease , lumbar spondylosis with facet arthropathy without myelopathy Recommendation of LILLIANA L5-S1 but pt would like to wait until the pain is less manageable for her 3rd in the series. May need a series of injections, up to 4 within a 12 month timeframe, for optimal pain relief. Risks, benefits of procedure discussed and pt verbalized understanding. Admits to anticoagulant use or medical history of diabetes. Protocol for discontinuation/continuation of medications sandra procedure discussed. All patient questions answered I have spent less than 30 minutes on patient care today. Dr Orta was available by phone for the evaluation of this patient. The time was used to review the medical records including relevant urine studies and Prescription history (MAPs), review of the available imaging, evaluation and examination of the patient, coordination of care with the medical staff and if applicable referring physicians, as well as creation of the medical record - Pain Location Lower Back Non-Pharmacological Interventions: Home Exercise, Inactivity, Massage, Physical Therapy, Stretching Pharmacological Interventions: Epidural, PRN Medication, Scheduled Medication, Topical Medication PQRS Narrative: Smoking Status Never smoker Blood Pressure 139/83 Pain Intensity [Lower Back] 7 Scale Used Numeric (1 - 10) Hx Alcohol Use (MH) No Home Medications: Ambulatory Orders Cetirizine HCl [Zyrtec] 10 mg PO DAILY 09/06/14 Sertraline [Zoloft] 100 mg PO BID 03/05/18 traMADol HCl [Ultram] 50 mg PO BID 05/05/19 Dulaglutide [Trulicity] 1.5 mg SQ TH 03/03/20 Levothyroxine Sodium [Euthyrox] 50 mcg PO DAILY 03/03/20 Metoprolol Tartrate [Lopressor] 25 mg PO BID 01/10/21 Montelukast [Singulair] 10 mg PO DAILY 01/10/21 Multivitamins, Thera [Multivitamin (formulary)] 1 tab PO DAILY 11/11/21 Omeprazole 40 mg PO DAILY 11/11/21 Fluticasone/Umeclidin/Vilanter [Trelegy Ellipta 100-62.5-25] 1 inhalation INHA LATION HS 10/03/22 Symbicort (Unknown Dose) 1 puff INHALATION BID 12/24/21 Controlled Substance Measures - Controlled Substance Measures Is patient prescribed a controlled substance at discharge?: No
== END ==
LOC: PNWHC3 14:07
PROVIDERS: ATTEND Specialist
DX: M47.816 Spondylosis without myelopathy or radiculopathy, lumbar region (principal); M51.36 Other intervertebral disc degeneration, lumbar region; G89.29 Other chronic pain; E11.9 Type 2 diabetes mellitus without complications; Z79.01 Long term (current) use of anticoagulants; Z79.84 Long term (current) use of oral hypoglycemic drugs
CPT/HCPCS: 99211

== ENCOUNTER → 2022-11-06 | Outpatient (CLI) | payer OTHER ==
[2022-11-06 21:48] LABS: INR 0.94 sec (0.93-1.11); Prothrombin Time 10.6 sec (9.9-11.9)
[2022-11-07 02:08] LABS: Basophils # (A) 0.05 X 10*3/uL (0.00-0.10); Eosinophils # (A) 0.15 X 10*3/uL (0.04-0.35); HCT 39.6 % (37.2-46.3); HGB 13.1 d/dL (12.0-15.0); Lymphocytes # (A) 2.07 X 10*3/uL (0.90-5.00); Lymphocytes % (A) 41.4 %; MCH 30.6 pg (27.0-32.0); MCHC 33.1 d/dL (32.0-37.0); MCV 92.5 FL (80.0-97.0); Mean Platelet Volume 11.7 FL (9.5-12.2); Monocytes # (A) 0.27 X 10*3/uL (0.20-1.00); Monocytes % (A) 5.4 %; NRBC Per 100 WBC 0 X 10*3/uL (0.00-0.01); Neutrophils # (A) 2.44 X 10*3/uL (1.80-7.70); Neutrophils % (A) 48.8 %; Platelet Count 213 X 10*3/uL (140-440); RBC 4.28 X 10*6/uL (4.10-5.20); RDW 13.9 % (11.5-14.5)
[2022-11-07 02:49] LABS: Blood Urea Nitrogen 7.6 mg/dL (9.0-27.0); Calcium 9.8 mg/dL (8.7-10.3); Carbon Dioxide 28.8 mmol/L (21.6-31.8); Chloride 102 mmol/L (96-109); Glucose 132 mg/dL (70-110); Potassium 4.3 mmol/L (3.5-5.5); Sodium 142 mmol/L (135-145)
== END | disposition home or self-care (01) ==
LOC: LABPAT 12:23
PROVIDERS: ATTEND Orthopaedic Surgery
DX: Z01.812 Encounter for preprocedural laboratory examination (principal); M47.816 Spondylosis without myelopathy or radiculopathy, lumbar region; M48.061 Spinal stenosis, lumbar region without neurogenic claudication; M43.16 Spondylolisthesis, lumbar region; Z22.322 Carrier or suspected carrier of Methicillin resistant Staphylococcus aureus
CPT/HCPCS: 80048; 85025; 85610; 87070

== ENCOUNTER 2022-11-12 05:55 | Observation (INO) | payer OTHER ==
--- NOTE | 2022-11-08 16:52 | P.HPOR ---
History of Present Illness H&P Date: 11/07/22 .D:Date: 11/07/22 : 02:08pm .T:Title: [facility] Date of :[birth year] [id number]: NKDA Age: 52 year Height: 5'3" Weight: 240 lbs BMI: 42.51 kg/m2 Occupation: [employer] VAS: 7 CHIEF COMPLAINT: Re-check on low back pain DOI: Chronic DOS: None HISTORY: Xrays No new xrays taken in office Trauma or injury No Work-Related No Pain description Aching & sharp. Location diffuse radiates to bilateral lower extremities Activity Modification yes , unable to stand or ambulate for extended periods of time. Hand Dominance right TREATMENTS COMPLETED: 6 weeks of PT completed? Month and Year of last PT date? 2020 Yes How many sessions? 12 Did it help? No Physician directed home exercise completed? Yes, daily without relief. Medications Yes, List: Lyrica, Naproxen, Tramadol Alternative interventions Chiropractic:None Massage therapy: None R.I.C.E: yes, Ice without relief. Injections Yes (Through Dr. Sanchez's office) How many? Several Did they help? No RFA: SUBJECTIVE: Ms. Ring returns to the office today for a re-check on her low back pain and pre-operative appointment. We discussed at length the surgery her questions risks and beneifits once again. She continues to have low back pain, LE weakness, paresthesias and debility related to this. She states with conservative treatment it has gotten no better and she is ready for surgical intervention. She denies any other sx at this time. She denies any bowel or bladder issues. She states no perineal numbnes tlingling. All her questions were answered in regards to surgery and she is comfortable to proceed. HPI: Patient returns to the office on 09/05/2022 for a recheck of her lumbar pain. Patient states she has diffuse lumbar pain that radiates to the bilateral lower extremities. Since the time of the last appointment the patient has had an increase in bilateral lower extremity pain, with the left lower extremity being worse than the right. Patient also reports an increase in right hip pain. Patient had a steroid injection on 12/25/21 with 80% relief for 1.5 months and another on 01/10/22 with 80% relief for 1.5 months. Patient reports continued issues with completing her ADL's due to her symptoms. Patient is currently taking Lyrica, Naproxen, and Tramadol without resolution of her symptoms. Otherwise she denies any f/c/sob/cp, no bladder or bowel retention/incontinence, no perineal numbness/tingling, and ambulates independently. Patient returns to the office on 09/14/21 to review her advanced imaging obtained after the time of the last appointment. Since the time of the last appointment the patient reports that she has seen no improvements to her symptoms. Patient reports continued issues with completing her ADL's due to her symptoms. Furthermore she notes that she has been taking Pregabalin with moderate relief of her radiculopathic symptoms. Aside from this she denies any improvements to her current habitus with all modalities trialed thus far. Otherwise she denies any f/c/sob/cp, no bladder or bowel retention/incontinence, no perineal numbness/tingling, and ambulates independently. Ms. Ring last presented to the office on 07/25/2021 for an evaluation of her lumbar spine. The patient reports that this has been persisting for c/o low back pain and neck pain. Low back pain seems to be more pressing and aggravating to her at this time. She has undergone extensive treatment and work up of her neck and thoracic spine at Dr. Sanchez's office with MRI, as well as injections and RFA however none of these have helped her. She c/o more of her low back being painful and that she is starting to have LE weakness as well as tingling. She states she does not know when it started but has been going on for at least a year now. She has done Therapy for her back as well as an injection and home exercises. She takes aleve w/o help. She has tried steroids in the past w/o relief. She has tried to loose weight, however it is difficult for her due to not being able to walk any distance due to the pain and issues she has with her legs. She states no bowel or bladder issues. No genital numbness/tingling at this time. 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 The patients' past social, medical, family, surgical history, as well as review of systems, have been reviewed. Please refer to the Neurosurgery History and P hysical form that has been scanned in to our electronic medical record system. 16 points review of systems completed and as stated in HPI, all other systems reviewed are negative. Social History: Reviewed, see appropriate section of the chart for details. P3 Social History: Smoking: none P3 Alcohol: none P3 Family History: Reviewed, see appropriate section of the chart for details. P2 Past Medical History: Reviewed, see appropriate section of the chart for details. Current Medications: P1See scanned list PHYSICAL EXAMINATION: General: Awake, alert, appropriate for age, in no acute distress. HEENT: No unusual neck masses around region of lateral neck triangle, thyroid, supraclavicular groove Heart: Regular rate and rhythm, normal S1, S2 and no murmur/gallop. Lungs: Clear to auscultation bilaterally with no use of accessory muscles. Extremities: Skin warm and dry without acute lesions, coloration, temperature, skin intact, no tenderness or erythema Integument: Hairy patches: ABSENT Dorsal skin dimples: ABSENT Cafe au lait spots: ABSENT Surgical incisions: None Palpation: Please see Pain drawing on Intake sheet for further detail. Midline spinal tenderness: Yes E6 Cervical Tenderness: No E6 Paralumbar tenderness: Yes E6 Parathoracic tenderness: No E6 Buttocks tenderness: No E6 Mild stepoff at L5-S1 POSTURAL and MUSCULO-SKELETAL EVALUATION: Coronal Balance: NEUTRAL Recumbent testing: Patient is able to lay flat on back Sagittal Balance: NEUTRAL Shoulder Profile: LEVEL Pelvic Girdle: LEVEL Neck ROM: RESTRICTED Lumbar ROM: RESTRICTED Shoulder ROM: Symmetrical Hip ROM: Symmetrical Knee ROM: Symmetrical Hands: Normal appearance, symmetrical Feet: Normal appearance, Symmetrical VASCULAR STATUS : LEFT RIGHT Wrist Pulses INTACT INTACT Pedal Pulses (Dors. pedis & post.tibialis) INTACT INTACT Color NORMAL NORMAL Edema Absent Absent NEUROLOGIC EXAMINATION: Mental Status:Awake and alert, fully oriented, with normal attention, concentration and memory, and fluent, appropriate speech. Cranial Nerves: I: Olfactory not tested. II: Visual acuity normal, no visual field deficit noted with confrontation. III,IV: Normal pupillary reflexes & intact extraocular movements without nystagmus. V,: Intact symmetrical facial sensation. VII: Intact symmetrical facial motor movement VIII: Hearing intact. IX,X: Intact gag, swallow, & normal voice. XI: Sternocleidomastoid, trapezius function intact. XII: Tongue midline with normal movements. L'hermitte's Sign: Negative / absent Spurling'Sign: Absent bilaterally. Cubital percussion test: Absent bilaterally. Fagan-Tinel sign - Carpal region: Absent bilaterally. Straight Leg Raising: Absent bilaterally. Crossed straight leg raise: negative O8 MOTOR EXAM (0-5/5, N/T) STRENGTH RIGHT LEFT Shoulder Abd (not part of the RAHUL score) 5 5 Elbow Flexors 5 5 Elbow Extensor 5 5 Wrist Dorsiflexors 5 5 Finger Abductor 5 5 Raw Scales Operator 5 5 Hip Flexor (Not part of RAHUL Motor score) 4 4 Knee Flexor 4 4 Knee Extensor 4 4 Ankle dorsiflexor 4 4 Ankle plantarflexion 4 4 Extensor hallucis 4 4 REFLEXES(0-4/2, NT) RIGHT LEFT Upper Extremities 2 2 Lower Extremities 1 1 Pathological Reflexes RIGHT LEFT Fagan's Present Present Clonus Absent Absent Babinski Absent Absent # Indicates mechanical impairment Muscle appearance: Symmetrical, without signs of atrophy or dystrophy. Rectal Tone:Deferred Sensory system (0-4, N/T) Test type RU RENEE RL LL Joint-Position 2 2 2 2 Vibration 2 2 2 2 Pain & LT sense 2 2 2 2 Dermatomal Deficit: None None S1 S1 Gait and Functional Evaluation: Ambulatory aids: Independent Romberg's test: Intact bilaterally Toe heel walk / heel-toe walk intact while maintaining satisfactory balance? No Squatting/straightening w/o assistance to a min of 60 degree knee flexion? No Single leg stance: not intact bilaterally Trendelenburg sign negative bila terally Hand and finger dexterity intact bilaterally? yes Disdiadochokinesis examination negative bilaterally? yes RADIOGRAPHIC STUDIES: XRay taken on 07/25/21 of Lumbar Spine and Pelvis: These are reviewed in the office today with the pt and demonstrate L5-S1 spondylolysis with Grade I unstable spondylolisthesis. There is noticeable pars defect likely bilateral at L5 which shows motion in F/E films and accentuates her listhesis on flexion and reduces on extension. There is facet hypertrophy noted at S1. There are osteophytes noted posterior to L5-S1. There is mild facet arthrosis of L4-5. Disc height is slightly decreased at L4-5 and more so at L5-S1. Vertebral body heights are maintained at this time. No other fractures noted. No lesions. AP pelvis shows congruent level pelvis w/o fracture. Her C spine and T spine films are reviewed for completeness sake. Reports are in her chart. CT scan without contrast from 08/13/2021 of the lumbar spine: Simialr findings to MRI with L5 b/l pars defects causing L5-S1 Grade I spond ylolisthesis. There is facet hypertrophy and overgrowth as well as artyhropathy contributing to this slip. Thius also contributes to the central and foraminal stenosis. No other lesions or fractures noted in the L spine. MRI from 08/13/2021 of the lumbar spine: Images reviewed. This demonstrates a Grade I spondylolisthesis due to spondylolysis at L5 of L5-S1. This is reduced on this supine film but accentuates when standing on plain film and F/E. There is associated disc degeneration as well as height loss, minor central bulging of disc causing mild central stenosis. Mild b/l foraminal stenosis noted as well. No other fractures or lesions noted. Remainder of the L spine disc height and VB heights maintained. MRI from 03/06/2022 of the right hip: * No fractures. No gross abnormalities. Some minor labral fraying noted. No lesions. IMPRESSION: It was my pleasure to have seen and examined Libia. I reviewed the patient's clinical syndrome, physical findings, and imaging studies during the appointment today. It is my impression that the patient has a diagnosis of. 1. L5 spondylolysis 2.L5-S1 grade 1 spondylolisthesis 3. L5-S1 spondylosis and stenosis 4. Lower extremity radiculopathy I outlined the natural course history without intervention and various interventional options. PLAN: Based on my findings I suggest the following course of action: -I discussed treatment options with the patient, including operative and non- operative options, and they have elected to proceed with the following surgical procedure: Lumbar L5-S1 Minimally Invasive Transforaminal Lumbar Interbody Fusion The indications, risks, benefits, and alternatives to surgery were discussed with the patient and family at length. Specifically (but not limited to) the risks of infection, stiffness, recurrence of symptoms, need for revision surgery, local numbness, neurovascular injury, and blood clots were discussed. The patient's questions were answered. The decision to proceed was made. Consent will be obtained for the procedure. -Ambulate daily -Take medications as directed -Ice and rest for pain and swelling control. Spine Surgery Risk Review Ms. Ring is presenting for evaluation of lumbar pain. It was my pleasure to have seen and examined Ms. Ring. In our visit today we have had a chance to go over subjective complaints, physical examination findings and treatments including the natural course history without intervention and various interventional options. The patients imaging demonstrates: XRay taken on 07/25/21 of Lumbar Spine and Pelvis: These are reviewed in the office today with the pt and demonstrate L5-S1 spondylolysis with Grade I unstable spondylolisthesis. There is noticeable pars defect likely bilateral at L5 which shows motion in F/E films and accentuates her listhesis on flexion and reduces on extension. There is facet hypertrophy noted at S1. There are osteophytes noted posterior to L5-S1. There is mild facet arthrosis of L4-5. Disc height is slightly decreased at L4-5 and more so at L5-S1. Vertebral body heights are maintained at this time. No other fractures noted. No lesions. AP pelvis shows congruent level pelvis w/o fracture. Her C spine and T spine films are reviewed for completeness sake. Reports are in her chart. CT scan without contrast from 08/13/2021 of the lumbar spine: Similar findings to MRI with L5 b/l pars defects causing L5-S1 Grade I spondylolisthesis. There is facet hypertrophy and overgrowth as well as artyhropathy contributing to this slip. Thius also contributes to the central and foraminal stenosis. No other lesions or fractures noted in the L spine. MRI from 08/13/2021 of the lumbar spine: Images reviewed. This demonstrates a Grade I spondylolisthesis due to spondylolysis at L5 of L5-S1. This is reduced on this supine film but accentuates when standing on plain film and F/E. There is associated disc degeneration as well as height loss, minor central bulging of disc causing mild central stenosis. Mild b/l foraminal stenosis noted as well. No other fractures or lesions noted. Remainder of the L spine disc height and VB heights maintained. MRI from 03/06/2022 of the right hip: * No fractures. No gross abnormalities. Some minor labral fraying noted. No lesions. On physical exam, Ms. Ring demonstrates: The patient reports that this has been persisting for c/o low back pain and neck pain. Low back pain seems to be more pressing and aggravating to her at this time. She has undergone extensive treatment and work up of her neck and thoracic spine at Dr. Sanchez's office with MRI, as well as injections and RFA however none of these have helped her. She c/o more of her low back being painful and that she is starting to have LE weakness as well as tingling. She states she does not know when it started but has been going on for at least a year now. She has done Therapy for her back as well as an injection and home exercises. She takes aleve w/o help. She has tried steroids in the past w/o relief. She has tried to loose weight, however it is difficult for her due to not being able to walk any distance due to the pain and issues she has with her legs I have explained to the patient that as their condition progresses it will cause further neurological deficits and eventual paralysis. Based on the patients imaging, physical exam, and the rapid progression and disabling nature of their symptoms, at this time I recommend surgery in the form of a: Lumbar L5-S1 Minimally Invasive Transforaminal Lumbar Interbody Fusion I discussed the risk and benefits of this procedure at length with Ms. Ring. The patient and significant other agreed to considered pursuing the procedure abovementioned. Prior to surgery, she should follow up with her PCP (Cardio, ID, IM etc) for clearance. Questions were invited and answered, and the patient wishes to proceed as outlined below. Currently, I am recommendin.Lumbar L5-S1 Minimally Invasive Transforaminal Lumbar Interbody Fusion 2.Follow up with PCP for surgical clearance 3.Review of surgical risks and benefits as well as an educational packet on the proposed surgical procedure. Risks: All surgical procedures come with inherent risks, including those related to positioning, anesthesia, intraoperative findings, and postoperative complications. It is important to understand that surgery does not come with any guarantee of a successful outcome as complications and adverse events are always possible. The patient was given a handout in office today discussing the surgical procedure and risks associated with the intervention, both of which were discussed with the patient. These risks include but are not limited to the following: * Experiencing same, different or even worse symptoms in back, neck, arms, or legs compared to before surgery. Requiring further surgery or other forms of treatment presently or at some time in the future at same or other levels of the intended spine surgery. On an extreme but fortunately relatively rare basis severe complication such as blindness, stroke, heart attack, temporary and/or permanent nerve injury, paralysis, coma, or may occur, sometimes without known explanation. Surgical complications may include but are not limited to risk of infection, fluid accumulation in the surgical dissection site, including a seroma or hematoma, that requires additional surgery, wound drainage, bleeding, new numbness or weakness, vision changes/loss, spinal fluid leakage, non-healing and/or infected incision, headaches, difficulty or inability to swallow, carin rseness, hemopneumothorax, pneumothorax, impotence, retrograde ejaculation, vaginal dryness; injury to nerves, spinal cord, blood vessels, lymphatics or other vital organs (i.e., bowel injury, injury to the great vessels); heterotopic bone formation; complications related to the hardware such as screws, rods, cages including misplaced hardware, device failure, instrumentation at the wrong spine level, hardware fracture/breakage, or hardware loosening; vertebral failure of the spinal column above or below the newly placed hardware; retained surgical instrumentations or devices and the need for further surgery. * Medical risks of the planned spine surgery include but are not limited to generalized Infections to the whole body or local areas outside of the surgical site (sepsis), heart attack, bleeding, anaphylaxis, meningitis, seizure, epilepsy, hearing loss, burn paul, laceration of the head or other areas of the body, bruising, hypersensitivity of the skin, bladder over disten imelda; allergic reaction; shoulder injury related to positioning; fat, blood and air clots to other areas of the body like heart, lungs, brain; failure of internal organs such as lungs, kidneys, liver and excessive bleeding. If blood transfusions are necessary, note that transfusions may cause intolerance reactions such as anaphylaxis or other complex reactions. Despite best efforts, the results of spine surgery might not heal in terms of bone, soft tissues such as skin, fascia, ligaments, and joints. Additionally, in order to achieve best possible results, spine surgery may be carried out be yond the initially planned levels and involve decompression, fusion including insertion of hardware at levels other than the original intended area of surgical interest change some portions of the procedure in order to ensure the best possible outcomes. With spine surgery and spinal fusion, there are different off label uses of instrumentation (devices, implants and hardware) as well as biological substances (bone morphogenic proteins, demineralized bone matrix) as well as using extra bone from allograft sources (i.e. cadaver bone) or autograft (iliac crest bone, ribs, or the spine itself). The patient has been given information about these practices and their inherent risks and benefits. [facility] is an educational center that serves as a training facility for neurosurgical and orthopedic [employer] and Nursing students. Physician assistants are medically trained surgical providers who function in the outpatient, inpatient, and operating room setting under the direct supervision of the attending surgeon. [facility] has multiple operating rooms with single and overlapping rooms running daily. They currently function under the required guidelines as produced by the [facility] Finance Committee with regards to the overlapping rooms and will continue to comply with changes to this policy as they occur. The requirements include and are complied with as follows: (1) the critical portions of the overlapping rooms will not occur at the same time, (2) the attending physician will be physically present during the critical portions of the procedure and immediately available during the entire case, and (3) a back-up attending is designated should the primary attending not be immediately available. The patient has had a chance to review all the listed information, has been given print outs detailing this information, and has had all his/her questions answered to their satisfaction. It was my pleasure to have seen and examined Ms. Ring. In our visit today we have had a chance to go over my understanding of our patient's current condition, the natural course history without intervention and various interventional options. Questions were invited and answered, and the patient wishes to proceed as outlined above. I have seen and examined the patient for 25 minutes and we have spent more than 50% of the time in repeat and detailed counseling about the patient's condition, its natural course history with out and as much as can be predicted with surgery and re-review of various surgical treatment options. In conclusion, Ms. Ring and her spouse requested we proceed with the above suggested surgery and are willing to accept risks and limitations of the suggested surgery as nature of the disease process and our best attempts at treatment for the condition. Thank you again for allowing us to be part of your patient's care. Please don't hesitate to contact me if you have any further questions. Follow- up: 2 weeks post op Patient Education: (Informational booklet, instructions, etc) given at today's appointment: Yes .ED:Patient Education: Y Plan at next visit: X-ray Medications Reviewed: YES In our visit today Ms. Ring and I have had a chance to go over my understanding of the patient's current condition, the natural course history without intervention and various interventional options. Questions were invited and answered, and the patient wishes to proceed as outlined above. I will be sure to keep you updated afterMs. Ring returns here for further follow-up. Thank you again for your referral. Please do not hesitate to contact me if you have any further questions. Signed and authenticated by: Josafat Amaya [facility] [address] [place] [id number] This message is confidential, intended only for the named recipient(s) and may contain information that is privileged or exempt from disclosure under applicable law. If you are not the intended recipient(s), you are notified that the dissemination, distribution or copying of this information is strictly prohibited. If you received this message in error, please notify the sender then delete this message. # SIGNED BY Josafat Vasquez (GOO)11/08/2022 04:52PM Past Medical History Past Medical History: Asthma, Diabetes Mellitus, GERD/Reflux, Hypertension, Osteoarthritis (OA), Thyroid Disorder Additional Past Medical History / Comment(s): VARICOSE VEINS, nerve pain legs History of Any Multi-Drug Resistant Organisms: None Reported Past Surgical History: Cholecystectomy, Hernia Repair Additional Past Surgical History / Comment(s): EGD, HIATAL HERNIA REPAIR. pain procedures Past Anesthesia/Blood Transfusion Reactions: Previous Problems w/ Anesthesia Additional Past Anesthesia/Blood Transfusion Reaction / Comment(s): slow to wake up in past Smoking Status: Never smoker - Past Family History Sister(s) Family Medical History: Cancer Father Family Medical History: Myocardial Infarction (AR) Additional Family Medical History / Comment(s): Father of "massive" AR in his early 60's. Mother Family Medical History: No Reported History Additional Family Medical History / Comment(s): Mother is still living. Medications and Allergies Home Medications Medication Instructions Recorded Confirmed Type Cetirizine HCl [Zyrtec] 10 mg PO DAILY 09/06/14 11/05/22 History Sertraline [Zoloft] 100 mg PO BID 03/05/18 11/05/22 History traMADol HCl [Ultram] 50 mg PO BID 05/05/19 11/05/22 History Levothyroxine Sodium [Euthyrox] 50 mcg PO DAILY 03/03/20 11/05/22 History Metoprolol Tartrate [Lopressor] 25 mg PO BID 01/10/21 11/05/22 History Montelukast [Singulair] 10 mg PO DAILY 01/10/21 11/05/22 History Multivitamins, Thera [Multivitamin 1 tab PO DAILY 11/11/21 11/05/22 History (formulary)] Omeprazole 40 mg PO HS 11/11/21 11/05/22 History Fluticasone/Umeclidin/Vilanter 1 inhalation INHALATION HS 12/24/21 11/05/22 History [Trelegy Ellipta 100-62.5-25] Symbicort (Unknown Dose) 1 puff INHALATION BID 12/24/21 11/05/22 History Pregabalin [Lyrica] 150 mg PO TID 11/05/22 11/05/22 History Semaglutide [Ozempic] 0.25 mg SQ TH 11/05/22 11/05/22 History glipiZIDE [Glucotrol] 5 mg PO AC-BRKFST 11/05/22 11/05/22 History Allergies Allergy/AdvReac Type Severity Reaction Status Date / Time No Known Allergies Allergy Verified 11/05/22 13:51 Physical Examination Osteopathic Statement: *. No significant issues noted on an osteopathic structural exam other than those noted in the History and Physical/Consult.
[~2022-11-12 05:55] MED LIST changes: +ACETAMINOPHEN TAB 500 MG TAB PO PRN; +GABAPENTIN 300 MG CAP PO PRN; -LACTATED RINGERS 1,000 ML IV SCH; -LIDOCAINE 1% (10MG/ML) FOR IV START INTRADERMA PRN; +ONDANSETRON 4 MG/2 ML VIAL IVP PRN; +TRANEXAMIC 1,000 MG/100ML-NACL 1,000 MG in SALINE 1 100ML.BAG IVPB PRN
[2022-11-12] MEDS ORDERED: LACTATED RINGERS 1,000 ML IV ONE ×3 (06:41→07:05)
[2022-11-12 06:52] LABS: Glucose,Whole Blood 288 mg/dL (70-110)
[2022-11-12] MEDS ORDERED: INSULIN ASPART (NovoLOG) 100 UNIT/ML VIAL SQ ONE ×2 (07:05→11:04)
[2022-11-12] MEDS ORDERED: PROPOFOL 10 MG/ML 20 ML VIAL IV ONE (07:26)
[2022-11-12] MEDS ORDERED: HYDROmorphone (PF) 1 MG/ML ONE (07:26)
[2022-11-12] MEDS ORDERED: PHENYLEPHRINE-0.9% NACL SYG 1,000 MCG/10 ML SYRINGE ONE (07:26)
[2022-11-12] MEDS ORDERED: TRANEXAMIC 1,000 MG/100ML-NACL PREMIX BAG ONE (07:26)
[2022-11-12] MEDS ORDERED: KETAMINE 10 MG/ML 20 ML VIAL ONE (07:26)
[2022-11-12] MEDS ORDERED: fentaNYL (PF) 50 MCG/ML 2 ML AMP ONE (07:26)
[2022-11-12] MEDS ORDERED: MIDAZOLAM 2 MG/2 ML VIAL ONE (07:26)
[2022-11-12] MEDS ORDERED: SUCCINYLCHOLINE CHLORIDE 200 MG/10 ML VIAL IV ONE (07:26)
[2022-11-12] MEDS ORDERED: ROCURONIUM 10 MG/ML (5 ML VIAL) IV ONE (07:26)
[2022-11-12] MEDS ORDERED: LIDOCAINE 2% INJ 20 MG/ML (2 ML VIAL) ONE (07:26)
[2022-11-12] MEDS ORDERED: NEOSTIGMINE 1 MG/ML 10 ML VIAL ONE (07:26)
[2022-11-12] MEDS ORDERED: GLYCOPYRROLATE 0.2 MG/ML 2 ML VIAL ONE (07:26)
[2022-11-12] MEDS ORDERED: ceFAZolin 1,000 MG in SODIUM CHLORIDE 0.9% 1,000 ML IRRIGATION ONE (08:09)
[2022-11-12] MEDS ORDERED: LIDOCAINE 2%-EPI 1:100,000 20 ML VIAL SQ ONE (08:20)
[2022-11-12] MEDS ORDERED: GELATIN SPONGE,ABSORB (LARGE) 1 EACH SPONGE TOPICAL ONE (09:08)
[2022-11-12] MEDS ORDERED: THROMBIN (BOVINE) 5,000 UNIT VIAL TOPICAL ONE (09:08)
[2022-11-12] MEDS ORDERED: VANCOMYCIN 1,000 MG VIAL MISCELLANE ONE (09:54)
--- NOTE | 2022-11-12 10:07 | P.OP ---
Date of Procedure: 11/12/22 Preoperative Diagnosis: 1. L5-S1 SPONDYLOLYSIS WITH GRADE I SPONDYLOLISTHESIS 2. RLE RADICULOPATHY WITH WEAKNESS 3. MECHANICAL LOW BACK PAIN Postoperative Diagnosis: 1. L5-S1 SPONDYLOLYSIS WITH GRADE I SPONDYLOLISTHESIS 2. RLE RADICULOPATHY WITH WEAKNESS 3. MECHANICAL LOW BACK PAIN Procedure(s) Performed: 1. L5-S1 POSTERIOLATERAL AND INTERBODY FUSION (68426) 2. L5-S1 LAMINOFORAMINOTOMY (R) FOR DECOMPRESSION AND CAGE PLACEMENT (72355) 3. INSTRUMENTATION L5-S1 (95776) 4. INSERTION OF BIOMECHANICAL DEVICE L5-S1 (97534) 5. USE OF [employer] NAVIGATION FOR SCREW PLACEMENT (68147) USE OF IONM ALL SCREWS TESTING >20 MA USE OF IO MICROSCOPE Implants: -IMLDRED EVEREST SCREW AND DEVANG SYSTEM MIS -GLOBUS SABLE CAGE 15 DEG, MEDIUM, 10-16MM -MAGNATOS, ARTHROCELL, ALLOCELL, AUTOGRAFT, IFACTOR Anesthesia: ARLETA Surgeon: Josafat Vasquez Short Piece Handler #1: Levi Anne (WAS PRESENT AND ASSISTED WITH ALL ASPECTS OF THE CASE FROM POSITIONING TO CLOSURE) Estimated Blood Loss (ml): 50 IV fluids (ml): 1,000 Urine output (ml): 250 Pathology: none sent Condition: stable Disposition: PACU Indications for Procedure: Ms. Ring is presenting for evaluation of lumbar pain. It was my pleasure to have seen and examined Ms. Ring. In our visit today we have had a chance to go over subjective complaints, physical examination findings and treatments including the natural course history without intervention and various interventional options. The patients imaging demonstrates: XRay taken on 07/25/21 of Lumbar Spine and Pelvis: These are reviewed in the office today with the pt and demonstrate L5-S1 spondylolysis with Grade I unstable spondylolisthesis. There is noticeable pars defect likely bilateral at L5 which shows motion in F/E films and accentuates her listhesis on flexion and reduces on extension. There is facet hypertrophy noted at S1. There are osteophytes noted posterior to L5-S1. There is mild facet arthrosis of L4-5. Disc height is slightly decreased at L4-5 and more so at L5-S1. Vertebral body heights are maintained at this time. No other fractures noted. No lesions. AP pelvis shows congruent level pelvis w/o fracture. Her C spine and T spine films are reviewed for completeness sake. Reports are in her chart. CT scan without contrast from 08/13/2021 of the lumbar spine: Similar findings to MRI with L5 b/l pars defects causing L5-S1 Grade I spondylolisthesis. There is facet hypertrophy and overgrowth as well as artyhropathy contributing to this slip. Thius also contributes to the central and foraminal stenosis. No other lesions or fractures noted in the L spine. MRI from 08/13/2021 of the lumbar spine: Images reviewed. This demonstrates a Grade I spondylolisthesis due to spondylolysis at L5 of L5-S1. This is reduced on this supine film but accentuates when standing on plain film and F/E. There is associated disc degeneration as well as height loss, minor central bulging of disc causing mild central stenosis. Mild b/l foraminal stenosis noted as well. No other fractures or lesions noted. Remainder of the L spine disc height and VB heights maintained. MRI from 03/06/2022 of the right hip: * No fractures. No gross abnormalities. Some minor labral fraying noted. No lesions. On physical exam, Ms. Ring demonstrates: The patient reports that this has been persisting for c/o low back pain and neck pain. Low back pain seems to be more pressing and aggravating to her at this time. She has undergone extensive treatment and work up of her neck and thoracic spine at Dr. Sanchez's office with MRI, as well as injections and RFA however none of these have helped her. She c/o more of her low back being painful and that she is starting to have LE weakness as well as tingling. She states she does not know when it started but has been going on for at least a year now. She has done Therapy for her back as well as an injection and home exercises. She takes aleve w/o help. She has tried steroids in the past w/o relief. She has tried to loose weight, however it is difficult for her due to not being able to walk any distance due to the pain and issues she has with her legs I have explained to the patient that as their condition progresses it will cause further neurological deficits and eventual paralysis. Based on the patients imaging, physical exam, and the rapid progression and disabling nature of their symptoms, at this time I recommend surgery in the form of a: Lumbar L5-S1 Minimally Invasive Transforaminal Lumbar Interbody Fusion I discussed the risk and benefits of this procedure at length with Ms. Ring. The patient and significant other agreed to considered pursuing the procedure abovementioned. Prior to surgery, she should follow up with her PCP (Cardio, ID, IM etc) for clearance. Questions were invited and answered, and the patient wishes to proceed as outlined below. Currently, I am recommendin.Lumbar L5-S1 Minimally Invasive Transforaminal Lumbar Interbody Fusion Description of Procedure: L5-S1 MIS TLIF KOBE (R) The patient was seen and examined in the preoperative area. All preoperative protocols were followed. Informed consent was obtained, risks and benefits of the procedure were discussed at length. Risks including bleeding infection damage to the surrounding tissue and risk of reoperation were discussed with the patient. Risk of anesthesia up to and including was discussed with the patient. These are outlined in the risk review. They were willing to accept these risks and all the risks of surgery. The patient was given a weight-based dose of antibiotics in the form of 2 g Ancef. The patient was seen and evaluated by the anesthesia team who deemed them fit for surgery. The site was marked, the patient was willing to proceed with the procedure. The patient was transferred to the operative suite by the Department of anesthesia. They were then drifted off to sleep by the department anesthesia and GETA was performed. The patient tolerated this well. Mario catheter was placed by nursing staff, a-traumatically. Once confirmation of lines and ventilation the patient was transferred to a prone Agustin table very carefully. All bony prominences including wrists, elbows, axilla, chest, hips, and thighs, and feet were padded very well. Special attention was paid to the genitalia, and these were padded accordingly. SCDs were placed on bilateral lower extremities and were connected. Arms were well padded and placed on arm boards up and out in the 90/90 position. Once in position, again we confirmed good ventilation capabilities and that lines were running appropriately. The patients Lumbar spine was then exposed. 1010s were placed outlining the incision site. Standard alcohol was used to clean the incision site and allowed to dry. C-arm was used to needle localize the pedicles at L5-S1 and bio-latasha the patient and confirm level for incision which was marked with a skin marker. Operative briefing was performed with all teams and everyone in agreement to proceed. The patient was then prepped and draped in a normal sterile fashion. Timeout was then performed, and all parties agreed with the procedure to be performed. Skin nicks were made over the PSIS on the right side and pins placed for the iDiDiD Navigation tracker. This was secured and then a 3D Zhiem spin was registered. Once registered it was tested and confirmed to be accurate. We then targeted pedicles b/l at L5 and S1 using navigated Jamshidi and drill guide. Wires were then placed in their void and confirmed to be in good position on AP and Lateral. Contralateral right side screws were then placed over wires and tested and they all tested above 20 mA. Attention was then turned to interbody fusion at L5-S1. Tubular retractor system was placed at the interspace of L5-S1 using biplanar c arm. Once in position and dilated up to 26mm tube it was locked to the bed and confirmed in good position. Microscope was then brought in for visualization. Limited myomectomy was performed and laminectomy, complete facetectomy and foraminotomy performed at L5-S1 using high speed pool and Kerrison rongure. The ligamentum was removed and dural sac decompressed. Exiting and traversing roots visualized and decompressed. Neural elements were then protected, and disc space accessed with an osteotome. Sequential shaving then done under lateral imaging and complete discectomy performed using eamon, pituitary and curette. Once good bleeding endplates accomplished and good height gnosticist with trials, a combination of autograft, allograft and synthetic placed anterior in the disc space. The cage was then selected and impacted into place under lateral imaging. The cage was then expanded restoring height, lordosis and alignment. The cage was backfilled with bone graft through a funnel. The inserter operator removed and area inspected. Good cage placement, stable cage and no injuries. Area was irrigated copiously, and meticulous hemostasis achieved. The tubular retractor was then removed under direct visualization. Screws were then selected and placed over the previously placed wires on the ipsilateral side. This was done in the fashion described above. Screws were then tested, and all tested above 20 mA. Shells were then placed on the tabs. Devang length was then measured, and rods selected. They were then placed through the MIS tabs, subfascial. These were then locked into place with set screws and final tightened. Devang holders removed and images taken showing good placement of rods good lordosis and gnosticist of height. Tabs were broken off. Wounds were then copiously irrigated with NSS. Pool used for TP decortication and mixture of MagnatOs, allograft and autograft packed posterolateral. Facia was then closed with 0 Vircyl. Deep subq closed with 0 Vicryl. Superficial subq closed with 2-0 Vicryl and skin with haley. Wound edges approximated very well. Wound was then cleaned with alcohol and dried. Wounds dressed in Optifoam dressings. The patient was then transferred off the table back to their hospital bed a- traumatically. They were extubated by the department of anesthesia. They were then transferred to PACU in stable condition having tolerated the procedure with no complications.
[2022-11-12] MEDS ORDERED: HYDROcodone/APAP 10-325MG 1 EACH TAB PO PRN (10:16)
[2022-11-12] MEDS ORDERED: HYDROmorphone 0.5 MG/0.5 ML SYRINGE IVP PRN (10:16)
[2022-11-12] MEDS ORDERED: CYCLOBENZAPRINE 5 MG TAB PO PRN (10:16)
[2022-11-12] MEDS ORDERED: ONDANSETRON 4 MG/2 ML VIAL IVP PRN (10:16)
[2022-11-12] MEDS ORDERED: MAGNESIUM HYDROXIDE 2,400 MG/30 ML CUP PO PRN (10:16)
[2022-11-12] MEDS ORDERED: SENNOSIDES-DOCUSATE SODIUM 1 EACH TAB PO PRN (10:16)
[2022-11-12] MEDS ORDERED: traMADol 50 MG TAB PO PRN (10:16)
[2022-11-12] MEDS ORDERED: HYDROcodone/APAP 7.5-325MG 1 EACH TAB PO PRN (10:20)
[2022-11-12 10:53] LABS: Glucose,Whole Blood 336 mg/dL (70-110)
--- NOTE | 2022-11-12 11:00 | XR ---
EXAM TYPE: LUMBAR SPINE X RAY SERIES COMPARISON: NONE HISTORY: Intraoperative images TECHNIQUE: 6 views are submitted. FINDINGS: Markedly limited resolution images are performed intraoperatively demonstrating the needle localizati on and postsurgical changes near the lumbosacral spine. IMPRESSION: 1. See above
[2022-11-12] MEDS ORDERED: ALBUTEROL NEBULIZED 2.5 MG/3 ML INHALATION ONE (11:28)
--- NOTE | 2022-11-12 14:19 | CT ---
EXAMINATION TYPE: CT lumbar spine wo con CT DLP: 2101.6 mGycm, Automated exposure control for dose reduction was used. DATE OF EXAM: 11/12/2022 2:09 PM COMPARISON: CT lumbar spine 08/13/2021. CLINICAL INDICATION:Female, 52 years old with history of s/p L5-S1 TLIF; PHH, post op lumbar fusion TECHNIQUE: Multiple axial images were obtained from the midportion of T11 through the sacroiliac rakesh nts. Soft tissue and bone windows in coronal and sagittal planes were obtained and reviewed. FINDINGS: Alignment: There are 5 lumbar type vertebral bodies within normal alignment. Bone: No evidence of fracture is identified. Status post surgical changes from L5-S1 TLIF. Disc fusi on cage is identified. Hardware appears intact. Mild fat stranding with few foci gas within the poste rior back soft tissues related to surgery. Discs: Mild disc space narrowing with endplate sclerosis and anterior osteophytosis with vacuum disc disease at T12-L1. T12-L1: No spinal canal or neural foraminal stenosis is identified. L1-L2: No spinal canal or neural foraminal stenosis is identified. L2-L3: Broad-based disc bulge without significant central canal stenosis. No neural foraminal stenosi s. L3-L4: Broad-based disc bulge without significant central canal stenosis. No neural foraminal stenosi s. L4-L5: Broad-based disc bulge with mild effacement of anterior thecal sac. The neural foramen are pa tent bilaterally. L5-S1: Post surgical changes. This creates streak artifact which limits evaluation. No gross evidence of significant central canal or neural foraminal stenosis. Other: Postsurgical changes at the GE junction. Liver is diffusely hypoattenuating consistent with st eatosis. IMPRESSION: 1. No evidence of fracture of the lumbar spine. 2. Postsurgical changes at L5-S1. Hardware appears intact with appropriate alignment. 3. Mild multilevel degenerative disc disease as described above.
[2022-11-12] MEDS: ACETAMINOPHEN TAB 325 MG TAB PO SCH ×2 (14:39→17:11)
[2022-11-12] MEDS ORDERED: DEXTROSE 50% SYRINGE 50 ML IVP PRN ×2 (15:23)
[2022-11-12] MEDS: 0.9% NACL WITH KCL 20 MEQ/L 1,000 ML IV SCH (16:41)
[2022-11-12] MEDS: PREGABALIN 75 MG CAP PO SCH ×2 (16:41→21:16)
[2022-11-12 17:05] LABS: Glucose,Whole Blood 212 mg/dL (70-110)
[2022-11-12] MEDS: INSULIN ASPART (NovoLOG) 100 UNIT/ML VIAL SQ SCH ×2 (17:12→21:17)
[2022-11-12] MEDS: HYDROmorphone 1 MG/ML 1 ML SYRINGE IVP PRN ×2 (18:21→21:16)
[2022-11-12 20:17] LABS: Glucose,Whole Blood 235 mg/dL (70-110)
[2022-11-12] MEDS: SYMBICORT 80-4.5 MCG INHALER INHALATION SCH (21:00)
[2022-11-12] MEDS: IPRATROPIUM 0.5 MG/2.5 ML NEBU INHALATION SCH (21:00)
[2022-11-12] MEDS ORDERED: SYMBICORT INHALATION SCH (21:00)
[2022-11-12] MEDS ORDERED: NON FORMULARY DRUG (Fluticasone/Umeclidin/Vilanter [Trelegy Ellipta 100-62.5-25] 1 EACH Bl INHALATION SCH (21:00)
[2022-11-12] MEDS: SERTRALINE 100 MG TAB PO SCH (21:16)
[2022-11-12] MEDS: METOPROLOL TARTRATE 25 MG TAB PO SCH (21:16)
[2022-11-12] MEDS: PANTOPRAZOLE 40 MG TABLET PO SCH (21:16)
[2022-11-13] MEDS: HYDROcodone/APAP 5-325MG 1 EACH TAB PO PRN ×2 (00:23→06:49)
[2022-11-13] MEDS: ACETAMINOPHEN TAB 325 MG TAB PO SCH ×5 (01:06→23:57)
--- NOTE | 2022-11-13 01:26 | CONS ---
CONSULTATION HISTORY OF PRESENT ILLNESS: A 52-year-old white female, status post lumbar surgery, in severe pain, crying in bed. Home medications have been reconciled. No chest pain or shortness of breath. Hematology, negative Homans. Vital signs are reviewed. REVIEW OF SYSTEMS: 14-point review of systems otherwise negative. MEDICATIONS: Reviewed. HOME MEDICATIONS: Reviewed. FAMILY HISTORY: Reviewed. PHYSICAL EXAMINATION: VITAL SIGNS: Oxygen saturation 96% on 2 L. Blood pressure is 140s over 79 to 92, pulse 85 to 72, respiratory rate 12 to 18, temp 97.7. CARDIOVASCULAR: S1, S2. LUNGS: Scattered rhonchi and wheeze. HEMATOLOGY: 2+ edema. NEUROLOGIC: Alert and oriented x3. PSYCH: She is just crying. EXTREMITIES: She is status post lumbar surgery. She has diabetes. She has obesity. She has degenerative disk disease, hyperthyroidism, asthma, chronic obstructive pulmonary disease. Prognosis guarded. Please see further orders. Home medications have been reconciled. She appears to be stable, more pain control. She is crying at this time. MMODL / IJN: [id number] /
[2022-11-13] MEDS: HYDROmorphone 1 MG/ML 1 ML SYRINGE IVP PRN (03:41)
[2022-11-13 06:12] LABS: Glucose,Whole Blood 340 mg/dL (70-110)
[2022-11-13] MEDS: INSULIN ASPART (NovoLOG) 100 UNIT/ML VIAL SQ SCH ×4 (06:50→21:36)
[2022-11-13] MEDS: LEVOTHYROXINE 50 MCG TAB PO SCH (06:50)
[2022-11-13] MEDS: IPRATROPIUM 0.5 MG/2.5 ML NEBU INHALATION SCH ×4 (07:49→20:55)
[2022-11-13] MEDS: SYMBICORT 80-4.5 MCG INHALER INHALATION SCH ×2 (07:49→20:55)
[2022-11-13] MEDS: SENNOSIDES-DOCUSATE SODIUM 1 EACH TAB PO SCH (08:27)
[2022-11-13] MEDS: MULTIVITAMINS, THERA 1 EACH TAB PO SCH (08:27)
[2022-11-13] MEDS: SERTRALINE 100 MG TAB PO SCH ×2 (08:27→20:57)
[2022-11-13] MEDS: LORATADINE 10 MG TAB PO SCH (08:27)
[2022-11-13] MEDS: MONTELUKAST 10 MG TAB PO SCH (08:27)
[2022-11-13] MEDS: glipiZIDE 5 MG TAB PO SCH (08:27)
[2022-11-13] MEDS: METOPROLOL TARTRATE 25 MG TAB PO SCH ×2 (08:27→20:57)
[2022-11-13] MEDS: PREGABALIN 75 MG CAP PO SCH ×3 (08:27→21:35)
[2022-11-13] MEDS ORDERED: NON FORMULARY DRUG (Pregabalin [Lyrica] 150 MG Capsule) PO SCH (09:00)
--- NOTE | 2022-11-13 10:02 | P.PN ---
Subjective Progress Note Date: 11/13/22 Principal diagnosis: 1. L5 spondylolysis 2.L5-S1 grade 1 spondylolisthesis 3. L5-S1 spondylosis and stenosis 4. Lower extremity radiculopathy Patient seen and examined this morning. Patient is resting complaint bed. Patient reports a intermittent sharp lumbar pain. She states her pain is not managed at this time. Medications have been adjusted. Patient states she has not been out of bed since procedure. Informed patient that physical therapy will be into work with her, patient verbalizes understanding. Simeon catheter is present and patent, may discontinue once patient is up and about. No acute events overnight. Objective - Vital Signs Vital signs: Vital Signs Temp 97.9 F 11/13/22 02:00 Pulse 76 11/13/22 02:00 Resp 16 11/13/22 02:00 BP 143/84 11/13/22 02:00 Pulse Ox 96 11/13/22 02:00 FiO2 Intake & Output 11/12/22 11/13/22 11/13/22 18:59 06:59 18:59 Intake Total 1701 Output Total 900 1050 Balance 801 -1050 Weight 110.2 kg Intake: IV 1701 Output: Urine 850 1050 Estimated Blood Loss 50 Other: Voiding Method Indwelling Catheter - Exam Physical Examination General: The patient is awake and alert, in no acute distress Skin: Skin is warm and dry with no obvious rashes or lesions. Surgical incision is the paralumbar region, the dressings are clean dry and intact. Eye: Pupils are equal, round and reactive to light, extra-ocular movements are intact; there is normal conjunctiva bilaterally. Neck: The neck is supple, there is no tenderness and ROM intact. Cardiovascular: There is a regular rate and rhythm. No murmur, rub or gallop is appreciated. Respiratory: Lungs are clear to auscultation, respirations are non-labored, breath sounds are equal. Gastrointestinal: Soft, non-distended, non-tender abdomen. Back: There is no tenderness to palpation in the midline, paralumbar, parathoracic or buttocks region. There is no obvious deformity . Musculoskeletal: ROM limited secondary to pain and stiffness from surgical procedure. Muscle strength in all major muscle groups of bilateral upper extremities 5/5, bilateral lower extremities 4/5. Neurological: CN 2-12 intact. There are no obvious motor or sensory deficits. Movement and coordination equal and intact. Sensory exam to light touch intact C5-T1 and intact from L2-S1. Reflexes 2/4 in bilateral upper and lower extremities. Negative Hoffmans, babinski, and clonus signs. Psychiatric: Cooperative, appropriate mood & affect, normal judgment. - Labs Labs: Abnormal Lab Results - Last 24 Hours (Table) 11/12/22 11/12/22 11/12/22 Range/Units 10:51 17:03 20:15 POC Glucose (mg/dL) 336 H 212 H 235 H (70-110) mg/dL 11/13/22 Range/Units 06:10 POC Glucose (mg/dL) 340 H (70-110) mg/dL Assessment and Plan Assessment: Postop day 1: Minimally invasive L5-S1 TLIF 1. L5 spondylolysis 2.L5-S1 grade 1 spondylolisthesis 3. L5-S1 spondylosis and stenosis 4. Lower extremity radiculopathy Plan: -Appreciate internal control consultant and team management. -Activity: Ambulate QID, OOB all meals, up and about, limit lifting bending twisting to less than 5 lbs. Use walker or cane if needed for stability. -Daily PT/OT, increase ambulation strength and balance. -Pain control: Adequate at this time -Meds: reviewed -GI ppx: senna, Miralax -DC simeon when up and about, bedside commode if needed -DVT PPX: OK to restart Heparin tonight -Hygiene: Shower today. Maintain dressing clean and dry. Meticulous cleaning after BMs away from the incision site -Drains: Maintain for now. DC later today pending out put and PT -Encourage IS 10x/hr -Dispo: Anticipate discharge home tomorrow with homecare *I reviewed and discussed this case with my attending Dr. Vasquez, whom has reviewed this chart and films and is in agreement with assessment and plan of care as outlined above. I have personally seen and examined the patient, performed the documentation and the assessment and plan as written. Number of minutes spent on the visit: 20.
[2022-11-13 10:52] LABS: Basophils # (A) 0.04 X 10*3/uL (0.00-0.10); Basophils % (A) 0.4 %; Eosinophils # (A) 0 X 10*3/uL (0.04-0.35); Eosinophils % (A) 0 %; HCT 36.5 % (37.2-46.3); Lymphocytes # (A) 0.61 X 10*3/uL (0.90-5.00); Lymphocytes % (A) 6.2 %; MCH 30.4 pg (27.0-32.0); MCHC 32.9 d/dL (32.0-37.0); MCV 92.4 FL (80.0-97.0); Mean Platelet Volume 11.5 FL (9.5-12.2); Monocytes # (A) 0.62 X 10*3/uL (0.20-1.00); Monocytes % (A) 6.3 %; NRBC Per 100 WBC 0 X 10*3/uL (0.00-0.01); Neutrophils # (A) 8.53 X 10*3/uL (1.80-7.70); Neutrophils % (A) 86.6 %; Platelet Count 222 X 10*3/uL (140-440); RBC 3.95 X 10*6/uL (4.10-5.20); WBC 9.85 X 10*3/uL (4.50-10.00)
[2022-11-13] MEDS ORDERED: HYDROcodone/APAP 7.5-325MG 1 EACH TAB PO SCH (11:00)
[2022-11-13 11:03] LABS: BUN/Creat Ratio 16.12 Ratio (12.00-20.00); Blood Urea Nitrogen 12.9 mg/dL (9.0-27.0); Calcium 9.1 mg/dL (8.7-10.3); Carbon Dioxide 27.9 mmol/L (21.6-31.8); Chloride 96 mmol/L (96-109); Glucose 349 mg/dL (70-110); Potassium 4.4 mmol/L (3.5-5.5); Sodium 135 mmol/L (135-145)
[2022-11-13 11:58] LABS: Glucose,Whole Blood 362 mg/dL (70-110)
[2022-11-13] MEDS: 0.9% NACL WITH KCL 20 MEQ/L 1,000 ML IV SCH (13:49)
[2022-11-13 16:51] LABS: Glucose,Whole Blood 345 mg/dL (70-110)
[2022-11-13] MEDS: HYDROcodone/APAP 10-325MG 1 EACH TAB PO SCH ×3 (17:11→23:54)
--- NOTE | 2022-11-13 20:45 | FL ---
EXAMINATION TYPE: FL guidance operating room DATE OF EXAM: 11/12/2022 Comparison: None Clinical History: 52-year-old female L5/S1 Fusion Findings: Intraoperative fluoroscopy during performance of lumbar fusion. Total fluoroscopy time 1 minute 2 sec onds. Total DAP: 6129.70 mGycm2. Total images: 6. Impression: Intraoperative fluoroscopy as above.
[2022-11-13] MEDS: PANTOPRAZOLE 40 MG TABLET PO SCH (20:57)
[2022-11-13 21:11] LABS: Glucose,Whole Blood 320 mg/dL (70-110)
--- NOTE | 2022-11-14 02:26 | PN ---
PROGRESS NOTE HISTORY OF PRESENT ILLNESS: Lumbar spondylosis surgery. She is feeling better today. She is in her breathing treatments. Medications are reviewed. PHYSICAL EXAMINATION: CARDIOVASCULAR: S1, S2. LUNGS: Scattered rhonchi and wheeze. HEMATOLOGY: Negative Homans. PSYCHIATRIC: Fair mood and affect. NEUROLOGIC: Cranial nerves intact. PSYCH: Fair mood and affect. PLAN: Continue current treatments. Follow up in next 24 to 48 hours. Continue breathing treatments, etc. Prognosis guarded. MMODL / IJN: [id number] /
[2022-11-14] MEDS: HYDROcodone/APAP 10-325MG 1 EACH TAB PO SCH ×3 (03:58→11:51)
[2022-11-14 04:36] LABS: Basophils % (A) 0 %; Eosinophils # (A) 0.2 k/uL (0-0.7); Eosinophils % (A) 2 %; HCT 34.1 % (34.0-46.0); HGB 11.8 gm/dL (11.4-16.0); Lymphocytes # (A) 1.6 k/uL (1.0-4.8); Lymphocytes % (A) 16 %; MCH 32.1 pg (25.0-35.0); MCHC 34.7 g/dL (31.0-37.0); MCV 92.7 fL (80.0-100.0); Mean Platelet Volume 9.1; Monocytes # (A) 0.5 k/uL (0-1.0); Monocytes % (A) 5 %; Neutrophils # (A) 7.7 k/uL (1.3-7.7); Neutrophils % (A) 76 %; Platelet Count 160 k/uL (150-450); Poikilocytosis Slight; RBC 3.68 m/uL (3.80-5.40); RDW 14.4 % (11.5-15.5); WBC 10.1 k/uL (3.8-10.6)
[2022-11-14 05:00] LABS: ALT 31 U/L (4-34); AST 51 U/L (14-36); African American GFR (CKD) >90 (>60 ml/min/1.73 sqM); Albumin 3.6 g/dL (3.5-5.0); Albumin/Globulin Ratio 1.1; Alkaline Phosphatase 73 U/L (38-126); Anion Gap 9 mmol/L; Blood Urea Nitrogen 9 mg/dL (7-17); Calcium 8.7 mg/dL (8.4-10.2); Carbon Dioxide 26 mmol/L (22-30); Chloride 99 mmol/L (98-107); Globulin 3.2 g/dL; Glucose 249 mg/dL (74-99); Non-African American GFR(CKD) >90 (>60 ml/min/1.73 sqM); Potassium 3.8 mmol/L (3.5-5.1); Sodium 134 mmol/L (137-145); Total Bilirubin 1.3 mg/dL (0.2-1.3); Total Protein 6.8 g/dL (6.3-8.2)
[2022-11-14 05:57] LABS: Glucose,Whole Blood 261 mg/dL (70-110)
[2022-11-14] MEDS: ACETAMINOPHEN TAB 325 MG TAB PO SCH ×2 (06:38→11:50)
[2022-11-14] MEDS: LEVOTHYROXINE 50 MCG TAB PO SCH (06:38)
[2022-11-14] MEDS: INSULIN ASPART (NovoLOG) 100 UNIT/ML VIAL SQ SCH ×2 (06:39→11:50)
[2022-11-14] MEDS: MULTIVITAMINS, THERA 1 EACH TAB PO SCH (07:14)
[2022-11-14] MEDS: SENNOSIDES-DOCUSATE SODIUM 1 EACH TAB PO SCH (07:14)
[2022-11-14] MEDS: glipiZIDE 5 MG TAB PO SCH (07:14)
[2022-11-14] MEDS: SERTRALINE 100 MG TAB PO SCH (07:14)
[2022-11-14] MEDS: PREGABALIN 75 MG CAP PO SCH (07:14)
[2022-11-14 07:46] VITALS: BP 136/91; RESP 16; TEMP 97.5
[2022-11-14] MEDS: IPRATROPIUM 0.5 MG/2.5 ML NEBU INHALATION SCH ×2 (08:12→12:09)
[2022-11-14] MEDS: SYMBICORT 80-4.5 MCG INHALER INHALATION SCH (08:12)
[2022-11-14 08:23] VITALS: PULSE 95
[2022-11-14] MEDS ORDERED: PATIENT'S OWN (Semaglutide [Ozempic] 0.25 MG/0.2 ML Each) SQ SCH (09:00)
[2022-11-14] MEDS: LORATADINE 10 MG TAB PO SCH (10:22)
[2022-11-14] MEDS: METOPROLOL TARTRATE 25 MG TAB PO SCH (10:23)
[2022-11-14] MEDS: MONTELUKAST 10 MG TAB PO SCH (10:23)
--- NOTE | 2022-11-14 10:32 | P.PN ---
Subjective Progress Note Date: 11/14/22 Principal diagnosis: 1. L5 spondylolysis 2.L5-S1 grade 1 spondylolisthesis 3. L5-S1 spondylosis and stenosis 4. Lower extremity radiculopathy Patient seen and examined this morning. Patient states she is doing much better today, pain is managed at this time. Patient states she has been ambulatory within room and working with physical therapy without any difficulty. Surgical dressings to the paralumbar region are clean dry and intact. Patient is looking forward to going home later today. No acute events overnight. Objective - Vital Signs Vital signs: Vital Signs Temp 97.5 F L 11/14/22 06:51 Pulse 95 11/14/22 08:23 Resp 16 11/14/22 06:51 BP 136/91 11/14/22 06:51 Pulse Ox 94 L 11/14/22 06:51 FiO2 Intake & Output 11/13/22 11/14/22 11/14/22 18:59 06:59 18:59 Other: Voiding Method Toilet # Voids 1 2 - Exam Physical Examination General: The patient is awake and alert, in no acute distress Skin: Skin is warm and dry with no obvious rashes or lesions. Surgical incision is the paralumbar region, the dressings are clean dry and intact. Eye: Pupils are equal, round and reactive to light, extra-ocular movements are intact; there is normal conjunctiva bilaterally. Neck: The neck is supple, there is no tenderness and ROM intact. Cardiovascular: There is a regular rate and rhythm. No murmur, rub or gallop is appreciated. Respiratory: Lungs are clear to auscultation, respirations are non-labored, breath sounds are equal. Gastrointestinal: Soft, non-distended, non-tender abdomen. Back: There is no tenderness to palpation in the midline, paralumbar, parathoracic or buttocks region. There is no obvious deformity . Musculoskeletal: ROM limited secondary to pain and stiffness from surgical procedure. Muscle strength in all major muscle groups of bilateral upper extremities 5/5, bilateral lower extremities 4/5. Neurological: CN 2-12 intact. There are no obvious motor or sensory deficits. Movement and coordination equal and intact. Sensory exam to light touch intact C5-T1 and intact from L2-S1. Reflexes 2/4 in bilateral upper and lower extremities. Negative Hoffmans, babinski, and clonus signs. Psychiatric: Cooperative, appropriate mood & affect, normal judgment. - Labs CBC & Chem 7: 11/14/22 03:52 11/14/22 03:52 Labs: Abnormal Lab Results - Last 24 Hours (Table) 11/13/22 11/13/22 11/13/22 Range/Units 07:12 07:12 07:12 RBC 3.95 L (4.10-5.20) X 10*6/uL Hct 36.5 L (37.2-46.3) % Neutrophils # 8.53 H (1.80-7.70) X 10*3/uL Lymphocytes # 0.61 L (0.90-5.00) X 10*3/uL Eosinophils # 0 L (0.04-0.35) X 10*3/uL Sodium (137-145) mmol/L Glucose 349 H (70-110) mg/dL POC Glucose (mg/dL) (70-110) mg/dL Hemoglobin A1c 8.1 H (<=6.0) % AST (14-36) U/L 11/13/22 11/13/22 11/13/22 Range/Units 11:56 16:49 21:10 RBC (4.10-5.20) X 10*6/uL Hct (37.2-46.3) % Neutrophils # (1.80-7.70) X 10*3/uL Lymphocytes # (0.90-5.00) X 10*3/uL Eosinophils # (0.04-0.35) X 10*3/uL Sodium (137-145) mmol/L Glucose (70-110) mg/dL POC Glucose (mg/dL) 362 H 345 H 320 H (70-110) mg/dL Hemoglobin A1c (<=6.0) % AST (14-36) U/L 11/14/22 11/14/22 11/14/22 Range/Units 03:52 03:52 05:56 RBC 3.68 L (4.10-5.20) X 10*6/uL Hct (37.2-46.3) % Neutrophils # (1.80-7.70) X 10*3/uL Lymphocytes # (0.90-5.00) X 10*3/uL Eosinophils # (0.04-0.35) X 10*3/uL Sodium 134 L (137-145) mmol/L Glucose 249 H (70-110) mg/dL POC Glucose (mg/dL) 261 H (70-110) mg/dL Hemoglobin A1c (<=6.0) % AST 51 H (14-36) U/L Assessment and Plan Assessment: Postop day 2: Minimally invasive L5-S1 TLIF 1. L5 spondylolysis 2.L5-S1 grade 1 spondylolisthesis 3. L5-S1 spondylosis and stenosis 4. Lower extremity radiculopathy Plan: -Appreciate framing consultant and team management. -Activity: Ambulate QID, OOB all meals, up and about, limit lifting bending twisting to less than 5 lbs. Use walker or cane if needed for stability. -Daily PT/OT, increase ambulation strength and balance. -Pain control: Adequate at this time -Meds: reviewed -GI ppx: senna, Miralax -DVT PPX: heparin -Hygiene: Shower today. Maintain dressing clean and dry. Meticulous cleaning after BMs away from the incision site -Encourage IS 10x/hr -Dispo: Anticipate discharge home today with homecare *I reviewed and discussed this case with my attending Dr. Vasquez, whom has reviewed this chart and films and is in agreement with assessment and plan of care as outlined above. I have personally seen and examined the patient, performed the documentation and the assessment and plan as written. Number of minutes spent on the visit: 20.
--- NOTE | 2022-11-14 10:38 | P.DS ---
Providers Date of admission: 11/12/22 10:16 Expected date of discharge: 11/14/22 Attending physician: Josafat Vasquez DO Consults: 11/12/22 10:18 Consult Physician Routine Consulting Provider: Nestor French Reason/Comments: medical management Do you want consulting provider notified?: Yes Primary care physician: [facility] Course: Hospital Course: The patient was evaluated preoperatively and found to have the diagnosis of lumbar spondylosis with stenosis. They underwent appropriate preoperative care and were willing to undergo the intended procedure. They underwent a successful L5-S1 minimally invasive TLIF, were recovered appropriately and sent to the floor. While on the floor they worked with physical therapy, occupational therapy and nursing to enhance their recovery experience. Their pain was well controlled through their stay and they were started on appropriate medications, DVT ppx modalities, activity and dietary needs. Daily labs were monitored closely, and transfusions were only used when necessary. Medicine as well as other consulting services have made their input and have helped with our team approach and multidisciplinary care. PT milestones have been met and passed and they have made the recommendation of home with home care for this patient and treating providers agree with this care path. The patient will be discharged home with appropriate medications, instructions and follow-up information and in stable condition. Patient Condition at Discharge: Good Plan - Discharge Summary Discharge Rx Participant: Yes New Discharge Prescriptions: New cefaDROXiL [Duricef] 500 mg PO Q12HR 5 Days #10 cap Cyclobenzaprine [Flexeril] 5 mg PO TID PRN #30 tablet PRN Reason: Muscle Spasm HYDROcodone/APAP 10-325MG [[place] 10-325] 1 tab PO Q4-6H PRN #42 tab PRN Reason: Pain Sennosides/Docusate Sodium [Senna Plus 8.6-50 mg Softgel] 1 each PO DAILY PRN #20 capsule PRN Reason: Constipation No Action Cetirizine HCl [Zyrtec] 10 mg PO DAILY Sertraline [Zoloft] 100 mg PO BID traMADol HCl [Ultram] 50 mg PO BID Levothyroxine Sodium [Euthyrox] 50 mcg PO DAILY Metoprolol Tartrate [Lopressor] 25 mg PO BID Montelukast [Singulair] 10 mg PO DAILY Omeprazole 40 mg PO HS Symbicort (Unknown Dose) 1 puff INHALATION BID Fluticasone/Umeclidin/Vilanter [Trelegy Ellipta 100-62.5-25] 1 inhalation INHALATION HS Multivitamins, Thera [Multivitamin (formulary)] 1 tab PO DAILY Pregabalin [Lyrica] 150 mg PO TID glipiZIDE [Glucotrol] 5 mg PO AC-BRKFST Semaglutide [Ozempic] 0.25 mg SQ TH Discharge Medication List Cetirizine HCl [Zyrtec] 10 mg PO DAILY 09/06/14 [History] Sertraline [Zoloft] 100 mg PO BID 03/05/18 [History] traMADol HCl [Ultram] 50 mg PO BID 05/05/19 [History] Levothyroxine Sodium [Euthyrox] 50 mcg PO DAILY 03/03/20 [History] Metoprolol Tartrate [Lopressor] 25 mg PO BID 01/10/21 [History] Montelukast [Singulair] 10 mg PO DAILY 01/10/21 [History] Multivitamins, Thera [Multivitamin (formulary)] 1 tab PO DAILY 11/11/21 [History] Omeprazole 40 mg PO HS 11/11/21 [History] Fluticasone/Umeclidin/Vilanter [Trelegy Ellipta 100-62.5-25] 1 inhalation INHALATION HS 12/24/21 [History] Symbicort (Unknown Dose) 1 puff INHALATION BID 12/24/21 [History] Pregabalin [Lyrica] 150 mg PO TID 11/05/22 [History] Semaglutide [Ozempic] 0.25 mg SQ TH 11/05/22 [History] glipiZIDE [Glucotrol] 5 mg PO AC-BRKFST 11/05/22 [History] Cyclobenzaprine [Flexeril] 5 mg PO TID PRN #30 tablet 11/14/22 [Rx] HYDROcodone/APAP 10-325MG [[place] 10-325] 1 tab PO Q4-6H PRN #42 tab 11/14/22 [Rx] Sennosides/Docusate Sodium [Senna Plus 8.6-50 mg Softgel] 1 each PO DAILY PRN #20 capsule 11/14/22 [Rx] cefaDROXiL [Duricef] 500 mg PO Q12HR 5 Days #10 cap 11/14/22 [Rx] Follow up Appointment(s)/Referral(s): Josafat Vasquez DO [Doctor of Osteopathic Medicine] - 11/27/22 1:45 pm Activity/Diet/Wound Care/Special Instructions: Spine Discharge and Recovery Instructions Date of Surgery: 11/12/2022 Diagnosis: Lumbar spondylosis with stenosis Procedure: Minimally invasive L5-S1 TLIF Medications: See medication list All medication refills should be obtained through your primary care doctor or your clinic spine surgeon. Please discuss prescription refills at your follow up appointment. Do not call the hospital for medication refills. Dressing: Leave your dressing in place for a total of 5 days post operatively. Then you may remove your dressing and leave open to air. Keep the area clean and if not able to keep area clean, then cover with sterile gauze and tape. Showering: You may shower 3 days after your procedure allowing soap and water to run over incision. Do not scrub. Do not soak. Blot dry. Follow up: Please confirm a follow up appointment with your surgeon 3 weeks post operatively. Please make an appointment to follow up with your PCP in 1-2 weeks after surgery for evaluation 3 phase, 3-week plan POST OP WEEKS 1-3 1. Lifting/carrying/pushing/pulling limited to less than 5 pounds. 2. Do not sit for longer than 15 minutes at one time. Get up and walk around. Prolonged sitting is NOT advised. If you lay down, see if you can tolerate laying down on you front (belly side) 3. Walk for periods of 15 minutes = 1 mile but no longer; do it multiple t imes times each day. 4. Ice your low back after activity. POST OP WEEKS 3-6 1. Lifting limited to less than 20 pounds. 2. Do not sit for longer than 30 minutes at a time. Frequently change positions. Use a sit-to stand workstation or take frequent breaks from sitting if you have returned to work. 3. Walk for 30 minutes each day. If possible, do these three or more times a day POST OP WEEKS 6+ At your 6-week appointment we will give you a physical therapy referral to focus on a core stabilization and strengthening program. You should also work on leg & buttock strengthening, hamstring & quadriceps stretching, and continue a low impact aerobic activity program such as swimming, walking, or riding a stationary bicycle. During the initial 6 weeks after your surgery, you are at the highest risk of re-injuring your spine. You should generally avoid BLTs (bending, lifting and t wisting combination motions) and follow the above guidelines to reduce the chance of reinjury. You can anticipate post op appointments in our office at approximately 3 weeks and 6 weeks after your surgery. INCISION CARE: If your incision is not draining you do NOT need to cover it with a dressing. Keep your incision clean, dry and intact. In most cases, we apply skin glue, haley or sutures to the incision at the time of surgery. This will be like a crust or have the appearance of a scab and will fall off in time on its own. The stitches or haley need to be removed at 3 weeks post op appointment. You may begin to shower 3 days after surgery (this allows the glue to bills well). However, please avoid scrubbing the incision site or peeling off any of the skin glue. This will ensure optimal healing of your incision. Also, during this time avoid soaking the incision area in water - this includes swimming pools, hot tubs or baths. No ointments, lotions or oils on the incision until your surgeon allows. Leave haley, sutures or glue in place. Neurological dysfunction that comes on suddenly can also be a sign of a stroke. Below some common symptoms of a stroke are listed: B - balance difficulty such as sudden onset walking or leaning to one side - NEW E - eye problem such as sudden double vision or trouble seeing on one side - NEW F - Facial weakness or numbness on one side - NEW A - Arm or leg weakness or numbness on one side - NEW S - Slurred speech or difficulty with word finding - NEW T - Time is BRAIN! Call 911 as soon as you recognize these symptoms Diet: Consume a regular diet rich in vegetables and lean protein such as chicken or fish. You should consume in a ratio of approximately 20% fats|40% carbohydrates|40%protein. Vegetables, sweet potatoes, brown rice or quinoa are examples of good carbohydrates. Chips, white bread, cookies and sweets/sugar are examples of bad carbohydrates. Limit your bad carbs, go wild with good carbs. 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 (1) Get Active. Physical activity can help people lose weight, control high blood pressure and cholesterol, feel emotionally better, and sleep better. (2) Control Cholesterol. Avoid a diet high in saturated fat, trans fat, & cholesterol. Limit whole milk & cream, ice cream, butter, egg yolks, processed meats (like sausage and hot dogs), and fatty meats. Choose healthy foods that are low in saturated fat, trans fat and cholesterol which include: Fruits and vegetables, fiber rich grain products (like whole grain pasta and brown rice), lean meat such as chicken, fish, nuts, seeds, and legumes. (3) Eat Better. Eat small portions. Shop at the grocery with a list and do not stray from it. Tips for a healthy diet include: Limit sodium intake to less than 1500mg daily, avoid prepackaged, processed, and fast foods, choose a diet rich in fruits, vegetables, and whole grain, high fiber foods, and limit saturated & cholesterol in your diet. (4) Manage Blood Pressure. If you have high blood pressure, you should have a cuff at home so that you can check your blood pressure regularly. Be sure you have a good cuff. An arm one is generally better than a wrist one. Bring the cuff to a doctor's appointment to validate that the measurements that your cuff are taking are accurate. Take your blood pressure twice daily when you are sitting down and relaxing. Record the numbers in a log and bring this log with you to your doctors' appointments. (5) Lose Weight if your BMI is above 25. A healthy BMI is between 19-25. To calculate Your BMI, you may use a Standard BMI Calculator on the NIH BMI website: <www.nhlbi.nih.gov/guidelines/obesity/BMI/bmicalc.htm>. Weigh oneself daily. If you are overweight, set a goal to lose weight. A pound a week loss if needed is a good target. (6) Reduce Blood Sugar. Limit foods and liquids with "added sugars." (Added sugars include sucrose, fructose, glucose, maltose, dextrose, high fructose corn syrup, corn syrup, concentrated fruit juice and honey). (7) Stop Smoking. If you smoke, quitting smoking is one of the best things that you can do for your health. Smoking increases your risk of heart attack, stroke, and peripheral vascular disease, which is a build-up of plaque in your arteries. Please discard all the cigarettes and lighters in your house. Have a plan for what you will do when you have the urge to smoke. Direct and second- hand smoke shortens your life as well as the lives of your family, friends and others around you. For your health and the health of those around you, please consider quitting! Proper Bending Body Mechanics: Maintain a wide stance with one foot slightly in front of the other. Keep your back straight. Bend utilizing the strength in your hips and knees. Do not bend at the waist. Maintain the lifted object at your waist-level close to your body. Avoid lifting weight that causes immediately pain or pain anywhere in the body afterwards. Smoking/Nicotine If there was ever one thing that you could do to increase your overall health, decrease your risk of cardiovascular problems by about 39% the second you make the choice, it is to STOP SMOKING. Your body's most instant gratification is the second you stop smoking. We have all heard the studies, read the articles but it is true, smoking is extremely bad for your overall health, and moreover it is detrimental to your bone health. Nicotine, IN ANY FORM, kills bone cells, prevents your body from healing fractures, and significantly prolongs healing after surgery. In spine surgery specifically, it increases your risk of not healing your bones to create a fusion and increases your risk of having a revision surgery due to this up to 60%. I know it is hard. I know it feels impossible. But there are ways. Take control of your life. We are here to help you through it. And when you are ready, ask us and we can direct you to help if you desire. Use the START Plan to Quit Smoking (please visit the Helpguide.org website listed below for more information): S = Set a quit date. Choose a date within the next 2 weeks, so you have enough time to prepare without losing your motivation to quit. If you mainly smoke at work, quit on the weekend, so you have a few days to adjust to the change. T = Tell family, friends, and co-workers that you plan to quit. Let your friends and family in on your plan to quit smoking and tell them you need their support and encouragement to stop. Look for a quit abdirizak who wants to stop smoking as well. You can help each other get through the rough times. A = Anticipate and plan for the challenges you'll face while quitting. Most people who begin smoking again do so within the first 3 months. You can help yourself make it through by preparing ahead for common challenges, such as nicotine withdrawal and cigarette cravings. R = Remove cigarettes and other tobacco products from your home, car, and work. Throw away all your cigarettes (no emergency pack!), lighters, ashtrays, and matches. Wash your clothes and freshen up anything that smells like smoke. Shampoo your car, clean your drapes and carpet, and steam your furniture. T = Talk to your doctor about getting help to quit. Your doctor can prescribe medication to help with withdrawal and suggest other alternatives. If you can't see a doctor, you can get many products over the counter at your local pharmacy or grocery store, including the nicotine patch, nicotine lozenges, and nicotine gum. Resources for Quitting Smoking: <https://www.[place].gov/documents/[place] [facility]/Quit_Tobacco_Resources_for_patients_313 480_7.pdf> Supplementation: Take recommended dosages of Vitamin D and Calcium to help fortify your bones and help them to heal. See your health maintenance packet for dosages and recommended levels. DVT/VTE prophylaxis: You will be given compression stockings from the hospital. Wear these daily for the first two weeks after surgery. You may take them off at night. You may be prescribed a medication to help thin your blood. Take this as directed. If you are not prescribed this medication, early and frequent ambulation has been shown to be the best prophylaxis to deep vein thrombosis and sequelae related to this event. Discharge Disposition: HOME WITH HOME HEALTH SERVICES
[2022-11-14 11:27] LABS: Glucose,Whole Blood 337 mg/dL (70-110)
[2022-11-14] MEDS: 0.9% NACL WITH KCL 20 MEQ/L 1,000 ML IV SCH (11:53)
== END 2022-11-14 13:36 | disposition home health service (06) ==
LOC: OR 05:55 → 4SSUR 10:10 → OR 10:16 → 4SSUR 10:16
PROVIDERS: ADMIT Orthopaedic Surgery; ATTEND Orthopaedic Surgery
DX: M43.17 Spondylolisthesis, lumbosacral region (principal); Z68.41 Body mass index [BMI] 40.0-44.9, adult; M25.551 Pain in right hip; M47.817 Spondylosis without myelopathy or radiculopathy, lumbosacral region; M47.816 Spondylosis without myelopathy or radiculopathy, lumbar region; M48.00 Spinal stenosis, site unspecified; M54.10 Radiculopathy, site unspecified; E11.9 Type 2 diabetes mellitus without complications; I10 Essential (primary) hypertension; J45.909 Unspecified asthma, uncomplicated; E07.9 Disorder of thyroid, unspecified; K21.9 Gastro-esophageal reflux disease without esophagitis; M19.90 Unspecified osteoarthritis, unspecified site; I83.90 Asymptomatic varicose veins of unspecified lower extremity; Z90.49 Acquired absence of other specified parts of digestive tract
CPT/HCPCS: 94640 ×4; 94760; 97116; 97162; 81025; 86900; 86901; 80053; 80048; 85025 ×2; 86850; 83036; 72100; 72131; 22633; 63052; 22853; 20930; 20937; 61783; G0378 ×2; C1713; C1762; C1734; J2250; J3370; J0330; J2710; J0690 ×4; J2405; J3010; J1170 ×3; J2704; J2001; J2371

== ENCOUNTER → 2024-05-19 | Outpatient (CLI) | payer OTHER ==
[2024-05-20 02:40] LABS: HCT 43.1 % (37.2-46.3); HGB 13.7 g/dL (12.0-15.0); MCH 30.4 pg (27.0-32.0); MCHC 31.8 g/dL (32.0-37.0); MCV 95.6 FL (80.0-97.0); Mean Platelet Volume 11.6 FL (9.5-12.2); NRBC Per 100 WBC 0 X 10*3/uL (0.00-0.01); Platelet Count 260 X 10*3/uL (140-440); RBC 4.51 X 10*6/uL (4.10-5.20); RDW 15.8 % (11.5-14.5); WBC 6.64 X 10*3/uL (4.50-10.00)
[2024-05-20 02:41] LABS: Basophils # (A) 0.07 X 10*3/uL (0.00-0.10); Basophils % (A) 1.1 %; Eosinophils # (A) 0.12 X 10*3/uL (0.04-0.35); Eosinophils % (A) 1.8 %; Lymphocytes # (A) 2.49 X 10*3/uL (0.90-5.00); Lymphocytes % (A) 37.5 %; Monocytes # (A) 0.25 X 10*3/uL (0.20-1.00); Monocytes % (A) 3.8 %; Neutrophils # (A) 3.69 X 10*3/uL (1.80-7.70); Neutrophils % (A) 55.5 %
[2024-05-20 05:46] LABS: Alternaria alternata IgE <0.10 kU/L; Aspergillus fumagatus IgE <0.10 kU/L; Birch IgE <0.10 kU/L; Cladosporian herbarum IgE <0.10 kU/L; Cockroach IgE <0.10 kU/L; Dog Dander IgE 0.73 kU/L; Elm IgE <0.10 kU/L; Maple (Box Elder) IgE 0.14 kU/L; Oak IgE <0.10 kU/L; Ragweed,Common IgE <0.10 kU/L; Red Top (Bentgrass) IgE <0.10 kU/L
== END | disposition home or self-care (01) ==
LOC: LABWHC1 16:10
PROVIDERS: ATTEND Internal Medicine Pulmonary Disease
DX: J45.50 Severe persistent asthma, uncomplicated (principal)
CPT/HCPCS: 36415; 82103; 82104; 82785; 85025; 86001; 86003; 86606; 86609

== ENCOUNTER → 2024-10-06 | Outpatient (CLI) | payer OTHER ==
[2024-10-06 19:09] LABS: HCT 45.7 % (37.2-46.3); HGB 14.7 g/dL (12.0-15.0); MCH 30.6 pg (27.0-32.0); MCHC 32.2 g/dL (32.0-37.0); MCV 95.0 FL (80.0-97.0); NRBC Per 100 WBC 0 X 10*3/uL (0.00-0.01); Platelet Count 257 X 10*3/uL (140-440); RBC 4.81 X 10*6/uL (4.10-5.20); RDW 15.1 % (11.5-14.5); WBC 5.93 X 10*3/uL (4.50-10.00)
[2024-10-06 19:23] LABS: ALT 32 U/L (8-44); AST 31 U/L (13-35); Albumin 4.8 g/dL (3.8-4.9); Albumin/Globulin Ratio 1.78 Ratio (1.60-3.17); Alkaline Phosphatase 95 U/L (41-126); Anion Gap 14.40 mmol/L (4.00-12.00); BUN/Creat Ratio 13.22 Ratio (12.00-20.00); Blood Urea Nitrogen 11.9 mg/dL (9.0-27.0); Calcium 10.0 mg/dL (8.7-10.3); Carbon Dioxide 26.6 mmol/L (21.6-31.8); Chloride 103 mmol/L (96-109); Cholesterol 171.00 mg/dL (0.00-200.00); Globulin 2.7 g/dL (1.6-3.3); Glucose 194 mg/dL (70-110); HDL Cholesterol 54.70 mg/dL (40.00-60.00); LDL Cholesterol,Calculated 56.5 mg/dL (0.0-131.0); Potassium 4.3 mmol/L (3.5-5.5); Sodium 144 mmol/L (135-145); Total Protein 7.5 g/dL (6.2-8.2); Triglycerides 299.00 mg/dL (0.00-149.00); VLDL Calculation 59.80 mg/dL (5.00-40.00)
[2024-10-06 22:25] LABS: NT-Pro-B-Type Natriuretic Pept 51 pg/mL (0-125)
== END | disposition home or self-care (01) ==
LOC: LABWHC1 15:14
PROVIDERS: ATTEND Student in an Organized Health Care Education/Training Program
DX: I50.9 Heart failure, unspecified (principal); E11.9 Type 2 diabetes mellitus without complications; E78.5 Hyperlipidemia, unspecified; E03.9 Hypothyroidism, unspecified; D72.9 Disorder of white blood cells, unspecified; R79.89 Other specified abnormal findings of blood chemistry
CPT/HCPCS: 36415; 80053; 80061; 83036; 83880; 84443; 85027